=== PATIENT | male | born 1980 | race Caucasian/White ===

== ENCOUNTER 2024-12-13 08:45 | Emergency (ER) | payer SELFPAY ==
[2024-12-13 08:45] VITALS: BP 133/96; PULSE 93; RESP 14; TEMP 36.1; O2SAT 98; BMI 24.5
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
--- NOTE | 2024-12-13 09:02 | ED.RN ---
Per Dr Main, no sitter is needed.
--- NOTE | 2024-12-13 09:16 | ED.RN ---
attempted to give urine sample. unable to void at this time. given water. pt aware that we need urine before able to move forward.
--- OUTSIDE RECORDS SUMMARY | 2024-12-13 09:19 | XMS RPT_ITS | CCD ---
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 Name Role Phone MILLIE POP, DR DAVIES Primary Care Physician [phone] Keke Pinto MD Primary Care Provider Shea Vogt Primary Care Unavailable PROVIDER, UNKNOWN Referring Unavailable Beena Garcia Attending Todd PINTO MD, DR DAVIES Primary Care Unavailabl e CHERELLE POP, VITALY Miller Attending Unavail able MILLIE POP, DR DAVIES Primary Care Unavailabl e ANNA POP, DR DEEPTI Henriquez Attending Pascual HARRIS MD, DIEGO Attending Todd PINTO MD, DR DAVIES Primary Care Unavailabl e Allergies Allergy Classification Reported Allergen(s) Allergy Type Date of Onset Reaction(s) Facility (8 sources) cyclobenzaprine; Translations: [cyclobenzaprine] Drug Allergy 03-30-2013 [facility] (6 sources) Methylphenidate; Translations: [methylphenidate] Drug Allergy [facility] (8 sources) traMADol; Translations: [tramadol] Drug Allergy 03-30-2013 [facility] Medications Current Medications Medication Drug Class(es) Dates Sig (Normalized) Sig (Original) Azithromycin 5 Day Dose Pack 250 mg oral tablet (1 source) Start: 01-27-2022 End: 02-01-2022 take 1 tablet by mouth once daily Azithromycin 5 Day Dose Pack 250 mg oral tablet 1 dose, Oral, Daily, X 5 day(s), # 6 tab(s), 0 Refill(s), 02/01/22 4:54:00 EDT, Bronchitis Viral syndrome, 77.3 Start Date: 01/27/22 Stop Date: 02/01/22 Status: Ordered cephalexin 500 mg oral capsule (4 sources) Cephalosporin Antibacterial Start: 02-10-2022 End: 02-15-2022 take 1 capsule by mouth three times daily cephALEXin (KEFLEX) 500 MG capsule Take 1 capsule by mouth 3 times daily for 5 days 15 capsule 0 02/10/2022 02/15/2022 Active predniSONE 20 mg oral tablet (1 source) Start: 01-27-2022 End: 02-01-2022 predniSONE 20 mg oral tablet Dose : 40 mg = 2 tab(s), Oral, Daily, X 5 day(s), # 10 tab(s), 0 Refill(s), 02/01/22 4:54:00 EDT, Bronchitis Viral syndrome Start Date: 01/27/22 Stop Date: 02/01/22 Status: Ordered 60 actuat testosterone 20.25 mg/actuat topical gel (2 sources) Androgen Start: 07-31-2021 Testosterone (ANDROGEL) 20.25 MG/ACT (1.62%) GEL gel Indications: Hypogonadism in male Place 2 actuation onto the skin daily for 30 days. 1 each 0 07/31/2021 Active Completed/Discontinued Medications Medication Drug Class(es) Dates Sig (Normalized) Sig (Original) bacitracin 0.5 unt/mg topical ointment (3 sources) Start: 02-10-2022 End: 02-10-2022 bacitracin ointment Start: 10-19-2021 End: 10-26-2021 bacitracin topical ointment Apply 1 appl, Topical, QID, X 7 day(s), # 15 gram(s), 0 Refill(s), Ointment, 77.3 Start Date: 10/19/21 Stop Date: 10/26/21 Status: Ordered EPINEPHrine 0.01 mg/ml / lidocaine hydrochloride 10 mg/ml injectable solution (2 sources) Antiarrhythmic, alpha-Adrenergic Agonist, beta-Adrenergic Agonist, Catecholamine, Amide Local Anesthetic Start: 02-10-2022 End: 02-10-2022 lidocaine-EPINEPHrine 1 %-[id number] injection 20 mL Problems Problem Classification Problem Date Documented Da te Episodic/Chronic Allergic reactions (4 sources) Allergy status to narcotic agent status; Translations: [Allergy status to other drugs, medicaments and biological substances status] Onset: 02-10-2022 Episodic Asthma (2 sources) Unspecified asthma, uncomplicated; Translations: [Unspecified asthma, uncomplicated] Onset: 02-10-2022 Chronic Chronic obstructive pulmonary disease and bronchiectasis (1 source) Bronchitis; Translations: [Bronchitis, not specified as acute or chronic] Onset: 01-27-2022 Episodic Coma; stupor; and brain damage (3 sources) Daytime somnolence; Translations: [Somnolence] Onset: 07-27-2021 07-27-2021 Episodic E Codes: Fall (2 sources) Other fall on same level, initial encounter; Translations: [Other fall on same level, initial encounter] Onset: 02-10-2022 Episodic Fluid and electrolyte disorders (1 source) Dehydration; Translations: [Dehydration] Onset: 01-27-2022 Episodic Malaise and fatigue (2 sources) Fatigue; Translations: [Chronic fatigue, unspecified] Onset: 07-27-2021 07-27-2021 Chronic Open wounds of head; neck; and trunk (4 sources) Facial laceration ; Translations: [Laceration without foreign body of other part of head, initial encounter] Onset: 02-10-2022 Episodic Other injuries and conditions due to external causes (3 sources) Unspecified injury of head, initial encounter; Translations: [Unspecified injury of head, initial encounter] Onset: 02-10-2022 Episodic Other injuries and conditions due to external causes (1 source) Injury of ankle; Translations: [Unspecified injury of unspecified ankle, initial encounter] Onset: 03-28-2023 Episodic Other injuries and conditions due to external causes (1 source) Injury of head; Translations: [Unspecified injury of head, initial encounter] Onset: 10-13-2024 Episodic Other injuries and conditions due to external causes (1 source) Closed injury of head 10-13-2024 Episodic Other non-traumatic joint disorders (1 source) Pain in unspecified knee; Translations: [Pain of joint of knee] Onset: 07-18-2021 Episodic Substance-related disorders (2 sources) Nicotine dependence, cigarettes, uncomplicated; Translations: [Nicotine dependence, cigarettes, uncomplicated] Onset: 02-10-2022 Chronic Viral infection (1 source) Viral disease; Translations: [Other viral agents as the cause of diseases classified elsewhere] Onset: 01-27-2022 Episodic Results Test Name Value Interpretation Reference Range Facility CT HEAD OR BRAIN W/O CONTRAS Ton 10-13-2024 CT HEAD OR BRAIN W/O CONTRAST ORIGINAL EXAMINATION: CT OF THE HEAD WITHOUT CONTRAST 10/13/2024 7:40 pm TECHNIQUE: CT of the head was performed without the administration of intravenous contrast. Automated exposure control, iterative reconstruction, and/or weight based adjustment of the mA/kV was utilized to reduce the radiation dose to as low as reasonably achievable. COMPARISON: None. HISTORY: ORDERING SYSTEM PROVIDED HISTORY: Reason for Exam: Head trauma, minor, normal mental status FINDINGS: BRAIN/VENTRICLES: There are calcified plaques of internal carotid cavernous segments and vertebral arteries. There are small calcified plaques of the proximal left middle cerebral artery. There is no acute intracranial hemorrhage, mass effect or midline shift. No abnormal extra-axial fluid collection. The newsome-white differentiation is maintained without evidence of an acute infarct. There is no evidence of hydrocephalus. ORBITS: The visualized portion of the orbits demonstrate no acute abnormality. SINUSES: The visualized paranasal sinuses and mastoid air cells demonstrate no acute abnormality. SOFT TISSUES/SKULL: No acute abnormality of the visualized skull or soft tissues. IMPRESSION: No acute intracranial abnormality. There is no evidence of mass, hemorrhage, acute infarct, or calvarial fracture. Interpreted by: Timi Roper Preliminary Report By: Timi Roper Electronically signed By Timi Roper Dictated Date: 10/13/2024 7:58:35 PM Prelim Date: 10/13/2024 8:05:08 PM Sign Date: 10/13/2024 8:05:08 PM Ordering Provider: DIEGO HARRIS Normal [facility] Yana 10-28-2023 Fentanyl (u) Positive Abnormal Negative [facility] ([place]) Comment on above: Result Comment: Test ing has been performed FOR MEDICAL PURPOSES ONLY. Performed By: #### U VIC BALDWIN #### [facility] [address] [place] [id number] #### UDRUG #### [address] [address] Aiyana 10-28-2023 Oxycodone (u) Negative Normal Negative [facility] ([place]) Comment on above: Result Comment: Test ing has been performed FOR MEDICAL PURPOSES ONLY. Performed By: #### U VIC BALDWIN ####[address] [address]#### UDRUG ####[address] [address] .Auto Diffon 10-27-2023 Basophil, Absolute 0.0 10 3/mcL Normal 0.0-0.2 [facility] ([place]) Comment on above: Performed By: #### B EDWIN DELGADO, CBC, ADIFF, GFR, ANEU #### [address] [address] Basophils/100 WBC (Bld) 0.5 % Normal 0.0-2.5 [facility] ([place]) Comment on above: Performed By: #### B EDWIN DELGADO, CBC, ADIFF, GFR, ANEU #### [address] [address] Eosinophil, Absolute 0.3 10 3/mcL Normal 0.0-0.4 [facility] ([place]) Comment on above: Performed By: #### B EDWIN DELGADO, CBC, ADIFF, GFR, ANEU #### [address] [address] Eosinophils/100 WBC (Bld) 3.9 % Normal 0.0-7.0 [facility] ([place]) Comment on above: Performed By: #### B EDWIN DELGADO, CBC, ADIFF, GFR, ANEU #### [address] [address] Lymphocyte, Absolute 1.8 10 3/mcL Normal 0.8-3.9 [facility] ([place]) Comment on above: Performed By: #### B EDWIN DELGADO, CBC, ADIFF, GFR, ANEU #### [address] [address] Lymphocytes/100 WBC (Bld) 23.0 % Normal 10.0-50.0 [facility] ([place]) Comment on above: Performed By: #### B EDWIN DELGADO, CBC, ADIFF, GFR, ANEU #### [address] [address] Monocyte, Absolute 0.7 10 3/mcL Normal 0.2-1.0 [facility] ([place]) Comment on above: Performed By: #### B EDWIN DELGADO, CBC, ADIFF, GFR, ANEU #### [address] [address] Monocytes/100 WBC (Bld) 9.7 % Normal 1.7-13.0 [facility] ([place]) Comment on above: Performed By: #### B EDWIN DELGADO, CBC, ADIFF, GFR, ANEU #### [address] [address] Neutrophils/100 WBC (Bld) 62.9 % Normal 37.0-80.0 [facility] ([place]) Comment on above: Performed By: #### B EDWIN DELGADO, CBC, ADIFF, GFR, ANEU #### [address] [address] .GFRon 10-27-2023 GFR 93 ml/min/1.73sqm Normal [facility] ([place]) Comment on above: Result Comment: GFR Population mean for , Non- Americans Ages 20-29 = 116 mL/min/1.73 sq.m. Ages 30-39 = 107 mL/min/1.73 sq.m. Ages 40-49 = 99 mL/min/1.73 sq.m. Ages 50-59 = 93 mL/min/1.73 sq.m. Ages 60-69 = 85 mL/min/1.73 sq.m. Ages 70+ = 75 mL/min/1.73 sq.m. Chronic Kidney Disease: Less than 60 mL/min/1.73 square meters End Stage Renal Disease: Less than 15 mL/min/1.73 square meters Performed By: #### B EDWIN DELGADO, CBC, ADIFF, GFR, ANEU #### [address] [address] GFR Non- 77 ml/min/1.73sqm Normal [facility] ([place]) Comment on above: Result Comment: GFR Population mean for , Non- Americans Ages 20-29 = 116 mL/min/1.73 sq.m. Ages 30-39 = 107 mL/min/1.73 sq.m. Ages 40-49 = 99 mL/min/1.73 sq.m. Ages 50-59 = 93 mL/min/1.73 sq.m. Ages 60-69 = 85 mL/min/1.73 sq.m. Ages 70+ = 75 mL/min/1.73 sq.m. Chronic Kidney Disease: Less than 60 mL/min/1.73 square meters End Stage Renal Disease: Less than 15 mL/min/1.73 square meters Performed By: #### B EDWIN DELGADO, CBC, ADIFF, GFR, ANEU #### [place] [address] .MDWon 10-27-2023 Monocyte Distribution Width 15.66 Normal 0.00-20.00 [facility]) Comment on above: Result Comment: For ED adult patients suspected of sepsis, MDW<=20.0 does not rule out sepsis or risk of sepsis Performed By: #### B EDWIN DELGADO, CBC, ADIFF, GFR, ANEU #### [place] [address] .NEUABSon 10-27-2023 Neutrophil, Absolute 4.9 10 3/mcL Normal 2.9-6.2 [facility] ([place]) Comment on above: Performed By: #### B EDWIN DELGADO, CBC, ADIFF, GFR, ANEU #### [place] [address] Abena 10-27-2023 Ethanol Level <3 Normal 0-3 [facility] ([place]) Comment on above: Performed By: #### A LC #### [place] [address] BMPon 10-27-2023 BUN/Creatinine Ratio 15 ratio Normal 7-27 [facility] ([place]) Comment on above: Performed By: #### B EDWIN DELGADO, CBC, ADIFF, GFR, ANEU #### [address] [address] Calcium [Mass/Vol] 9.0 mg/dL Normal 8.4-10.2 [facility] ([place]) Comment on above: Performed By: #### B EDWIN DELGADO, CBC, ADIFF, GFR, ANEU #### [address] [address] Chloride [Moles/Vol] 104 mmol/L Normal 98-107 [facility] ([place]) Comment on above: Performed By: #### B EDWIN DELGADO, CBC, ADIFF, GFR, ANEU #### [place] [address] CO2 [Moles/Vol] 35 mmol/L High 22-29 [facility] ([place]) Comment on above: Performed By: #### B EDWIN DELGADO, CBC, ADIFF, GFR, ANEU #### [address] [address] Creatinine [Mass/Vol] 1.06 mg/dL Normal 0.70-1.30 [facility] ([place]) Comment on above: Performed By: #### B EDWIN DELGADO, CBC, ADIFF, GFR, ANEU #### [address] [address] Electrolyte Balance 4.0 mEq/L Normal 4.0-15.0 [facility] ([place]) Comment on above: Performed By: #### B EDWIN DELGADO, CBC, ADIFF, GFR, ANEU #### [address] [address] Glucose [Mass/Vol] 132 mg/dL High 70-105 [facility] ([place]) Comment on above: Performed By: #### B EDWIN DELGADO, CBC, ADIFF, GFR, ANEU #### [address] [address] Potassium [Moles/Vol] 4.0 mmol/L Normal 3.5-5.1 [facility] ([place]) Comment on above: Performed By: #### B EDWIN DELGADO, CBC, ADIFF, GFR, ANEU #### [address] [address] Sodium [Moles/Vol] 143 mmol/L Normal 136-145 [facility] ([place]) Comment on above: Performed By: #### B EDWIN DELGADO, CBC, ADIFF, GFR, ANEU #### [address] [address] Urea nitrogen [Mass/Vol] 16 mg/dL Normal 7-18 [facility] ([place]) Comment on above: Performed By: #### B EDWIN DELGADO, CBC, ADIFF, GFR, ANEU #### [place] [address] CBCon 10-27-2023 Erythrocyte distribution width (RBC) [Ratio] 13.7 % Normal 11.5-14.5 [facility] ([place]) Comment on above: Performed By: #### B EDWIN DELGADO, CBC, ADIFF, GFR, ANEU #### [place] [address] Hematocrit (Bld) [Volume fraction] 39.5 % Low 42.0-52.0 [facility] ([place]) Comment on above: Performed By: #### B EDWIN DELGADO, CBC, ADIFF, GFR, ANEU #### [address] [address] Hgb 13.8 G/dL Low 14.0-18.0 [facility] ([place]) Comment on above: Performed By: #### B EDWIN DELGADO, CBC, ADIFF, GFR, ANEU #### [address] [address] MCH (RBC) [Entitic mass] 32.3 pg High 27.0-31.2 [facility] ([place]) Comment on above: Performed By: #### B EDWIN DELGADO, CBC, ADIFF, GFR, ANEU #### [place] [id number] MCHC 34.8 G/dL Normal 31.8-35.4 [facility] ([place]) Comment on above: Performed By: #### B EDWIN DELGADO, CBC, ADIFF, GFR, ANEU #### [address] [address] MCV (RBC) [Entitic vol] 92.8 fL Normal 80.0-94.0 [facility] ([place]) Comment on above: Performed By: #### B EDWIN DELGADO, CBC, ADIFF, GFR, ANEU #### [address] [address] Platelet 201 10 3/mcL Normal 130-400 [facility] ([place]) Comment on above: Performed By: #### B EDWIN DELGADO, CBC, ADIFF, GFR, ANEU #### [address] [address] Platelet mean volume (Bld) [Entitic vol] 6.8 fL Low 7.4-10.4 [facility] ([place]) Comment on above: Performed By: #### B EDWIN DELGADO, CBC, ADIFF, GFR, ANEU #### [place] [id number] RBC 4.26 10 6/mcL Normal 4.04-6.13 [facility] ([place]) Comment on above: Performed By: #### B EDWIN DELGADO, CBC, ADIFF, GFR, ANEU #### [address] [address] WBC 7.7 10 3/mcL Normal 4.6-10.8 [facility] ([place]) Comment on above: Performed By: #### B EDWIN DELGADO, CBC, ADIFF, GFR, ANEU #### [address] [address] LABORATORYOrdered By: Aurea Morocho on 10-27-2023 Amphetamines Screen Ql (U) Negative *NA* (10/27/23 10:30 PM) Invalid Interpretation Code Negative AO ADM SS Barbiturates Screen Ql (U) Negative *NA* (10/27/23 10:30 PM) Invalid Interpretation Code Negative AO ADM SS Benzodiazepines Ql (U) Negative *NA* (10/27/23 10:30 PM) Invalid Interpretation Code Negative AO ADM SS Benzoylecgonine Screen Ql (U) Negative *NA* (10/27/23 10:30 PM) Invalid Interpretation Code Negative AO ADM SS Cannabinoids Screen Ql (U) Negative *NA* (10/27/23 10:30 PM) Invalid Interpretation Code Negative AO ADM SS Methadone Screen Ql (U) Negative *NA* (10/27/23 10:30 PM) Invalid Interpretation Code Negative AO ADM SS Opiates Screen Ql (U) Negative *NA* (10/27/23 10:30 PM) Invalid Interpretation Code Negative AO ADM SS Phencyclidine Ql (U) Negative *NA* (10/27/23 10:30 PM) Invalid Interpretation Code Negative AO ADM SS Urine Drugs screened: See Below 2 (10/27/23 10:30 PM) Normal AO Chemistry S Comment on above: Interpretive Data: T his drug screen is a presumptive screening only. No confirmation will be performed unless requested. Drugs screened include: Threshold Amphetamines/Methamphetamines 1,000 ng/mL Barbiturates 200 ng/mL Benzodiazepine metabolites 200 ng/mL Cannabinoids (THC metabolites) 50 ng/mL Cocaine 300 ng/mL Opiates 300 ng/mL Methadone 300 ng/mL Phencyclidine (PCP) 25 ng/mL Testing has been performed FOR MEDICAL PURPOSES ONLY. LABORATORYOrdered By: SYSTEM SYSTEM on 10-27-2023 Ethanol [Mass/Vol] mg/dL Normal 0 - 3 mg/dL AO AD M SS Basophil, Absolute 0.0 103/mcL Normal 0.0 - 0.2 10^3/mcL AO Workflow SS Basophils/100 WBC (Bld) 0.5 % Normal 0.0 - 2.5 % AO Workflow SS Calcium [Mass/Vol] 9.0 mg/dL Normal 8.4 - 10. 2 mg/dL AO ADM SS Chloride [Moles/Vol] 104 mmol/L Normal 98 - 10 7 mmol/L AO ADM SS CO2 [Moles/Vol] 35 mmol/L High 22 - 29 mmol/L AO ADM SS Creatinine [Mass/Vol] 1.06 mg/dL Normal 0.70 - 1.30 mg/dL AO ADM SS Electrolyte Balance 4.0 mEq/L Normal 4.0 - 15 .0 mEq/L AO ADM SS Eosinophil, Absolute 0.3 103/mcL Normal 0.0 - 0 .4 10^3/mcL AO Workflow SS Eosinophils/100 WBC (Bld) 3.9 % Normal 0.0 - 7.0 % AO Workflow SS Erythrocyte distribution width (RBC) [Ratio] 13.7 % Normal 11.5 - 14.5 % AO Workflow SS GFR/1.73 sq M.predicted among blacks MDRD (S/P/Bld) [Vol rate/Area] 93 ml/min/1.73sqm Invalid Interpretation Code AO Chemistry S Comment on above: Interpretive Data: GFR Population mean for , Non- Americans Ages 20-29 = 116 mL/min/1.73 sq.m. Ages 30-39 = 107 mL/min/1.73 sq.m. Ages 40-49 = 99 mL/min/1.73 sq.m. Ages 50-59 = 93 mL/min/1.73 sq.m. Ages 60-69 = 85 mL/min/1.73 sq.m. Ages 70+ = 75 mL/min/1.73 sq.m. Chronic Kidney Disease: Less than 60 mL/min/1.73 square meters End Stage Renal Disease: Less than 15 mL/min/1.73 square meters GFR/1.73 sq M.predicted among non-blacks MDRD (S/P/Bld) [Vol rate/Area] 77 ml/min/1.73sqm Invalid Interpretation Code AO Chemistry S Comment on above: Interpretive Data: GFR Population mean for , Non- Americans Ages 20-29 = 116 mL/min/1.73 sq.m. Ages 30-39 = 107 mL/min/1.73 sq.m. Ages 40-49 = 99 mL/min/1.73 sq.m. Ages 50-59 = 93 mL/min/1.73 sq.m. Ages 60-69 = 85 mL/min/1.73 sq.m. Ages 70+ = 75 mL/min/1.73 sq.m. Chronic Kidney Disease: Less than 60 mL/min/1.73 square meters End Stage Renal Disease: Less than 15 mL/min/1.73 square meters Glucose [Mass/Vol] 132 mg/dL High 70 - 105 mg/dL AO ADM SS Hematocrit (Bld) [Volume fraction] 39.5 % Low 42.0 - 52.0 % AO Workflow SS Hemoglobin (Bld) [Mass/Vol] 13.8 G/dL Low 14.0 - 18.0 G/dL AO Workflow SS Lymphocyte, Absolute 1.8 103/mcL Normal 0.8 - 3 .9 10^3/mcL AO Workflow SS Lymphocytes/100 WBC (Bld) 23.0 % Normal 10.0 - 50.0 % AO Workflow SS MCH (RBC) [Entitic mass] 32.3 pg High 27.0 - 31.2 pg AO Workflow SS MCHC 34.8 G/dL Normal 31.8 - 35.4 G/dL AO Workflow SS MCV (RBC) [Entitic vol] 92.8 fL Normal 80.0 - 94.0 fL AO Workflow SS Monocyte distribution width Auto (Bld) [Entitic vol] 15.66 1 Normal 0.00 - 20.00 AO Workflow SS Comment on above: Result Comment: For ED adult patients suspected of sepsis, MDW<=20.0 does not rule out sepsis or risk of sepsis Monocyte, Absolute 0.7 103/mcL Normal 0.2 - 1.0 10^3/mcL AO Workflow SS Monocytes/100 WBC (Bld) 9.7 % Normal 1.7 - 13.0 % AO Workflow SS Neutrophil, Absolute 4.9 103/mcL Normal 2.9 - 6 .2 10^3/mcL AO Workflow SS Neutrophils/100 WBC (Bld) 62.9 % Normal 37.0 - 80.0 % AO Workflow SS Platelet mean volume (Bld) [Entitic vol] 6.8 fL Low 7.4 - 10.4 fL AO Workflow SS Platelets (Bld) [#/Vol] 201 103/mcL Normal 130 - 400 10^3/mcL AO Workflow SS Potassium [Moles/Vol] 4.0 mmol/L Normal 3.5 - 5.1 mmol/L AO ADM SS RBC (Bld) [#/Vol] 4.26 106/mcL Normal 4.04 - 6.1 3 10^6/mcL AO Workflow SS Sodium [Moles/Vol] 143 mmol/L Normal 136 - 145 mmol/L AO ADM SS Urea nitrogen [Mass/Vol] 16 mg/dL Normal 7 - 18 mg/dL AO ADM SS Urea nitrogen/Creatinine [Mass ratio] 15 ratio Normal 7 - 27 ratio AO ADM SS WBC (Bld) [#/Vol] 7.7 103/mcL Normal 4.6 - 10.8 10^3/mcL AO Workflow SS UDRUGon 10-27-2023 Amphetamine (u) Negative Normal Negative [facility] ([place]) Comment on above: Performed By: #### U FENTS, UOXYS #### [facility] [address] [place] [address] #### UDRUG #### [address] [address] Barbiturate (u) Negative Normal Negative [facility] ([place]) Comment on above: Performed By: #### U FENTS, UOXYS #### [facility] [address] [place] [address] #### UDRUG #### [address] [address] Benzodiazepine (u) Negative Normal Negative [facility] ([place]) Comment on above: Performed By: #### U FENTS, UOXYS #### [address] [address] #### UDRUG #### [address] [address] Cannabinoid (u) Negative Normal Negative [facility] ([place]) Comment on above: Performed By: #### U FENTS, UOXYS #### [address] [address] #### UDRUG #### [address] [address] Cocaine Ql (U) Negative Normal Negative [facility] ([place]) Comment on above: Performed By: #### U FENTS, UOXYS #### [facility] [address] [place] [address] #### UDRUG #### [address] [address] Methadone Ql (U) Negative Normal Negative [facility] ([place]) Comment on above: Performed By: #### U FENTS, UOXYS #### [address] [address] #### UDRUG #### [address] [address] Opiate (u) Negative Normal Negative [facility] ([place]) Comment on above: Performed By: #### U FENTS, UOXYS #### [place] [id number] [address] [place] [address] #### UDRUG #### [address] [address] PCP (u) Negative Normal Negative [facility] ([place]) Comment on above: Performed By: #### U FENTS, UOXYS #### [address] [address] #### UDRUG #### [address] [address] Urine Drugs screened: See Below Normal [facility] ([place]) Comment on above: Result Comment: This drug screen is a presumptive screening only. No confirmation will be performed unless requested. Drugs screened include: Threshold Amphetamines/Methamphetamines 1,000 ng/mL Barbiturates 200 ng/mL Benzodiazepine metabolites 200 ng/mL Cannabinoids (THC metabolites) 50 ng/mL Cocaine 300 ng/mL Opiates 300 ng/mL Methadone 300 ng/mL Phencyclidine (PCP) 25 ng/mL Testing has been performed FOR MEDICAL PURPOSES ONLY. Performed By: #### U FENTS, UOXYS #### [address] [address] #### UDRUG #### [address] [address] XR ANKLE MINIMUM 3 VIEWS [facility] 03-28-2023 XR ANKLE MINIMUM 3 VIEWS RIGHT ORIGINAL EXAMINATION: THREE XRAY VIEWS OF THE RIGHT ANKLE03/28/2023 11:25 am COMPARISON: None HISTORY: ORDERING SYSTEM PROVIDED HISTORY: Reason for Exam: pain FINDINGS: There is osseous irregularity through the anterior talar neck with osseous spurring and possible sclerosis. Additionally, the AP and oblique views demonstrate subchondral irregularity and concavity along the medial aspect of the talar articular surface. Otherwise, no fracture or dislocation. There is calcaneal spurring. No evidence significant joint effusion. Remaining articulations are intact. No aggressive osseous lesion. No radiographic evidence of soft tissue swelling. IMPRESSION: Anterior talar neck irregularity, which is uncertain in etiology. Findings could reflect remote trauma. Additionally, medial talar articular surface irregularity, could reflect osteochondritis desiccans. Given constellation of findings, MRI may be warranted. Interpreted by: Mirza Bowen DO Preliminary Report By: Mirza Bowen DO Electronically signed By Mirza Bowen DO Dictated Date: 03/28/2023 11:29:48 AM Prelim Date: 03/28/2023 11:37:19 AM Sign Date: 03/28/2023 11:37:19 AM Ordering Provider: DEEPTI CASTILLO [facility] ([place]) CT Head or Brain w/o Contras ton 02-10-2022 CT Head or Brain w/o Contrast Patient Name: OSMAN OMALLEY Computed Tomography ACCESSION EXAM DATE/TIME PROCEDURE ORDERING PROVIDER [id number] 02/10/2022 05:[address] Head or Brain w/o [id number] -KIBE, BEENA Contrast CPT code 56624 Reason For Exam (CT Head or Brain w/o Contrast) facial trauma Report Examination: CT Head Clinical Information: Pain Comparison: None Findings: Serial axial [address] images were obtained through the skull without intravenous contrast. Coronal, sagittal, and axial images were reconstructed. The ventricular system and cortical sulci are within normal limits. Champion white differentiation is well preserved. There is no evidence of gross mass, hemorrhage or edema. No areas of mass-effect or infarct are seen. Sinuses appear well pneumatized. Impression: Unremarkable noncontrast CT scan of the head. No evidence of acute intracranial process. EXAMINATION: CT Maxillofacial w/o Contrast INDICATION: Pain COMPARISON: None available. TECHNIQUE: 0.5 mm axial images of the maxillofacial structures were obtained without contrast. Coronal and sagittal reformatted images were reviewed. FINDINGS: Scalp laceration/hematoma containing a 5 mm radiopaque foreign body, just to the right of midline. The frontal sinuses and frontal recesses are well-aerated. The ethmoid air cells are well-aerated. The medial orbital napier are intact. The Computed Tomography Report ethmoid roofs are symmetric. The sphenoid sinuses and sphenoethmoidal recesses are well-aerated. The maxillary antra are well aerated. The ostiomeatal units are well-aerated. The nasal septum is in the midline. The nasal cavity is well-aerated. Visualized portions of the brain and orbits are unremarkable. IMPRESSION: 1. Scalp laceration/hematoma containing a 5 mm radiopaque foreign body, just to the right of midline. 2. No osseous injury. Report Dictated on Final Dictating Physician: MD MUNOZ JASON Signed Date and Time: 02/10/2022 6:08 am Signed by: MD MUNOZ JASON Transcribed Date and Time: 02/10/2022 6:09 Normal [facility] CT Maxillofacial w/o Contras ton 02-10-2022 CT Maxillofacial w/o Contrast Patient Name: OSMAN OMALLEY Computed Tomography ACCESSION EXAM DATE/TIME PROCEDURE ORDERING PROVIDER [id number] 02/10/2022 05:[address] Maxillofacial w/o [id number] -KIBE, BEENA Contrast CPT code 30157 Reason For Exam (CT Maxillofacial w/o Contrast) facial trauma Report Examination: CT Head Clinical Information: Pain Comparison: None Findings: Serial axial [address] images were obtained through the skull without intravenous contrast. Coronal, sagittal, and axial images were reconstructed. The ventricular system and cortical sulci are within normal limits. Champion white differentiation is well preserved. There is no evidence of gross mass, hemorrhage or edema. No areas of mass-effect or infarct are seen. Sinuses appear well pneumatized. Impression: Unremarkable noncontrast CT scan of the head. No evidence of acute intracranial process. EXAMINATION: CT Maxillofacial w/o Contrast INDICATION: Pain COMPARISON: None available. TECHNIQUE: 0.5 mm axial images of the maxillofacial structures were obtained without contrast. Coronal and sagittal reformatted images were reviewed. FINDINGS: Scalp laceration/hematoma containing a 5 mm radiopaque foreign body, just to the right of midline. The frontal sinuses and frontal recesses are well-aerated. The ethmoid air cells are well-aerated. The medial orbital napier are intact. The Computed Tomography Report ethmoid roofs are symmetric. The sphenoid sinuses and sphenoethmoidal recesses are well-aerated. The maxillary antra are well aerated. The ostiomeatal units are well-aerated. The nasal septum is in the midline. The nasal cavity is well-aerated. Visualized portions of the brain and orbits are unremarkable. IMPRESSION: 1. Scalp laceration/hematoma containing a 5 mm radiopaque foreign body, just to the right of midline. 2. No osseous injury. Report Dictated on Final Dictating Physician: MD MUNOZ JASON Signed Date and Time: 02/10/2022 6:08 am Signed by: MD MUNOZ JASON Transcribed Date and Time: 02/10/2022 6:09 Normal [facility] ED Provider Noteon ED Provider Note [facility] ED EMERGENCY DEPARTMENT ENCOUNTER Pt Name: Osman Omalley Birthdate 1980 Date of evaluation: 02/10/2022 Provider: Beena Brown MD CHIEF COMPLAINT Chief Complaint Patient presents with ? Fall ? Laceration Pt tripped and fell hitting head on the toilet, no LOC HISTORY OF PRESENT ILLNESS (Location/Symptom, Timing/Onset, Context/Setting, Quality, Duration, Modifying Factors, Severity) Note limiting factors. I wore a surgical mask for the entirety of this encounter. HPI Osman Omalley is a 41 y.o. male with a past medical history significant for chronic fatigue syndrome who presents to the emergency department for evaluation for a fall with a rastafarian to the forehead. Patient states got lightheaded when going to the bathroom. He states that he tried to catch himself on his sink but fell crushing of the porcelain part of the toilet. He states he immediately noticed there were pieces of porcelain on his forehead. He states that he tried to remove them but could not get out of them out hence coming to the emergency department for evaluation. He denies loss of consciousness. He denies lightheadedness at the time of my evaluation. Patient also denies any headache, vision changes or focal neurologic deficits. Patient denies any other trauma. Nursing Notes were reviewed. REVIEW OF SYSTEMS (2+ for level 4; 10+ for level 5) Review of Systems Constitutional: Negative for activity change, appetite change, chills, diaphoresis and fever. HENT: Negative for congestion, facial swelling, sinus pressure, sinus pain, sneezing and trouble swallowing. Eyes: Negative for pain, discharge and visual disturbance. Respiratory: Negative for cough, chest tightness and shortness of breath. Cardiovascular: Negative for chest pain and palpitations. Gastrointestinal: Negative for abdominal pain, nausea and vomiting. Genitourinary: Negative for decreased urine volume, dysuria, hematuria and urgency. Musculoskeletal: Negative for back pain, neck pain and neck stiffness. Skin: Positive for wound (Forehead). Negative for color change, pallor and rash. Neurological: Positive for light-headedness. Negative for dizziness and numbness. Psychiatric/Behavio ral: Negative for confusion and hallucinations. The patient is not nervous/anxious. PAST MEDICAL HISTORY Past Medical History: Diagnosis Date ? Asthma SURGICAL HISTORY Past Surgical History: Procedure Laterality Date ? EYE SURGERY Right 1986 ? EYE SURGERY Right 1988 ? EYE SURGERY Right 1989 ? ORTHOPEDIC SURGERY finger amputation CURRENT MEDICATIONS Previous Medications TESTOSTERONE (ANDROGEL) 20.25 MG/ACT (1.62%) GEL GEL Place 2 actuation onto the skin daily for 30 days. ALLERGIES Cyclobenzaprine and Tramadol FAMILY HISTORY Family History Problem Relation Age of Onset ? Cancer Mother ? Cancer Maternal Aunt ? Cancer Maternal Grandmother SOCIAL HISTORY Social History Socioeconomic History ? Marital status: Single Spouse name: None ? Number of children: None ? Years of education: None ? Highest education level: None Tobacco Use ? Smoking status: Every Day Packs/day: 1.00 Years: 23.00 Pack years: 23.00 Types: Cigarettes Start date: 11/07/1997 ? Smokeless tobacco: Never ? Tobacco comments: unable to assess Vaping Use ? Vaping Use: Never used Substance and Sexual Activity ? Alcohol use: Yes Comment: hardly at all ? Drug use: Not Currently Comment: unable to assess SCREENINGS [place] Coma Scale Eye Opening: Spontaneous Best Verbal Response: Oriented Best Motor Response: Obeys commands Laureen Coma Scale Score: 15 PHYSICAL EXAM (up to 7 for level 4, 8 or more for level 5) ED Triage Vitals BP Temp Temp Source Heart Rate Resp SpO2 Height Weight 02/10/2244102/10/2244102/10/2244102/10/2244102/10/2244102/10/22441 -- 02/10/22442 (!) 136/91 98.3 ?F (36.8 ?C) Temporal 73 16 99 % 165 lb (74.8 kg) Physical Exam Vitals and nursing note reviewed. Constitutional: General: He is not in acute distress. Appearance: He is not ill-appearing or toxic-appearing. HENT: Head: Normocephalic. Comments: Lacerations to forehead with porcelain pieces removed at bedside. Right Ear: External ear normal. Left Ear: External ear normal. Nose: No congestion or rhinorrhea. Mouth/Throat: Mouth: Mucous membranes are moist. Pharynx: No oropharyngeal exudate. Eyes: General: No scleral icterus. Right eye: No discharge. Left eye: No discharge. Conjunctiva/sclera: Conjunctivae normal. Cardiovascular: Rate and Rhythm: Normal rate. Pulses: Normal pulses. Heart sounds: No murmur heard. No gallop. Pulmonary: Effort: Pulmonary effort is normal. No respiratory distress. Breath sounds: Normal breath sounds. No stridor. No wheezing or rhonchi. Abdominal: General: Abdomen is flat. There is no distension. Palpations: Abdome (more content not included)... Normal [facility] No Panel Informationon 02-10 Beena Brown MD 02/10/2022 7:56 AM Lac Repair Date/Time: 02/10/2022 7:51 AM Performed by: Beena Brown MD Authorized by: Beena Brown MD Consent: Consent obtained: Verbal Consent given by: Patient Risks, benefits, and alternatives were discussed: yes Risks discussed: Infection, poor cosmetic result, pain, retained foreign body, poor wound healing and need for additional repair [place] protocol: Patient identity confirmed: Verbally with patient Anesthesia: Anesthesia method: Local infiltration Local anesthetic: Lidocaine 1% WITH epi Laceration details: Location: Face Face location: Forehead Length (cm): 3.5 Depth (mm): 2 Pre-procedure details: Preparation: Patient was prepped and draped in usual sterile fashion Exploration: Limited defect created (wound extended): no Hemostasis achieved with: Direct pressure Imaging obtained comment: CT head Imaging outcome: foreign body noted Wound exploration: wound explored through full range of motion Wound extent: areolar tissue violated Wound extent: no fascia violation noted Contaminated: yes Treatment: Area cleansed with: Saline Amount of cleaning: Extensive Irrigation solution: Sterile saline Irrigation volume: 250 Irrigation method: Pressure wash Visualized foreign bodies/material removed: yes Debridement: Minimal Undermining: Minimal Scar revision: no Skin repair: Repair method: Sutures Suture size: 6-0 Suture material: Chromic gut Suture technique: Simple interrupted Number of sutures: 14 Approximation: Approximation: Close Repair type: Repair type: Simple Post-procedure details: Dressing: Antibiotic ointment Procedure completion: Tolerated well, no immediate complications [facility] Work Phone: [facility] Work Phone: [id number] Computed Tomography ACCESSION EXAM DATE/TIME PROCEDURE ORDERING PROVIDER [id number] 02/10/2022 05:[address] Head or Brain w/o [id number] -KIBE, BEENA Contrast CPT code 27148 Reason For Exam (CT Head or Brain w/o Contrast) facial trauma Report Examination: CT Head Clinical Information: Pain Comparison: None Findings: Serial axial [address] images were obtained through the skull without intravenous contrast. Coronal, sagittal, and axial images were reconstructed. The ventricular system and cortical sulci are within normal limits. Champion white differentiation is well preserved. There is no evidence of gross mass, hemorrhage or edema. No areas of mass-effect or infarct are seen. Sinuses appear well pneumatized. Impression: Unremarkable noncontrast CT scan of the head. No evidence of acute intracranial process. EXAMINATION: CT Maxillofacial w/o Contrast INDICATION: Pain COMPARISON: None available. TECHNIQUE: 0.5 mm axial images of the maxillofacial structures were obtained without contrast. Coronal and sagittal reformatted images were reviewed. FINDINGS: Scalp laceration/hematoma containing a 5 mm radiopaque foreign body, just to the right of midline. The frontal sinuses and frontal recesses are well-aerated. The ethmoid air cells are well-aerated. The medial orbital napier are intact. The Computed Tomography Report ethmoid roofs are symmetric. The sphenoid sinuses and sphenoethmoidal recesses are well-aerated. The maxillary antra are well aerated. The ostiomeatal units are well-aerated. The nasal septum is in the midline. The nasal cavity is well-aerated. Visualized portions of the brain and orbits are unremarkable. IMPRESSION: 1. Scalp laceration/hematoma containing a 5 mm radiopaque foreign body, just to the right of midline. 2. No osseous injury. Report Dictated on --- Final --- Dictating Physician: MD MUNOZ JASON Signed Date and Time: 02/10/2022 6:08 am Signed by: MD MUNOZ JASON Transcribed Date and Time: 02/10/2022 6:09 [facility] Minesh Munoz MD - 02/10/2022 Patient Name: OSMAN OMALLEY Computed Tomography ACCESSION EXAM DATE/TIME PROCEDURE ORDERING PROVIDER [id number] 02/10/2022 05:[address] Head or Brain w/o [id number] -KIBE, BEENA Contrast CPT code 42163 Reason For Exam (CT Head or Brain w/o Contrast) facial trauma Report Examination: CT Head Clinical Information: Pain Comparison: None Findings: Serial axial [address] images were obtained through the skull without intravenous contrast. Coronal, sagittal, and axial images were reconstructed. The ventricular system and cortical sulci are within normal limits. Champion white differentiation is well preserved. There is no evidence of gross mass, hemorrhage or edema. No areas of mass-effect or infarct are seen. Sinuses appear well pneumatized. Impression: Unremarkable noncontrast CT scan of the head. No evidence of acute intracranial process. EXAMINATION: CT Maxillofacial w/o Contrast INDICATION: Pain COMPARISON: None available. TECHNIQUE: 0.5 mm axial images of the maxillofacial structures were obtained without contrast. Coronal and sagittal reformatted images were reviewed. FINDINGS: Scalp laceration/hematoma containing a 5 mm radiopaque foreign body, just to the right of midline. The frontal sinuses and frontal recesses are well-aerated. The ethmoid air cells are well-aerated. The medial orbital napier are intact. The Computed Tomography Report ethmoid roofs are symmetric. The sphenoid sinuses and sphenoethmoidal recesses are well-aerated. The maxillary antra are well aerated. The ostiomeatal units are well-aerated. The nasal septum is in the midline. The nasal cavity is well-aerated. Visualized portions of the brain and orbits are unremarkable. IMPRESSION: 1. Scalp laceration/hematoma containing a 5 mm radiopaque foreign body, just to the right of midline. 2. No osseous injury. Report Dictated on --- Final --- Dictating Physician: MD MUNOZ JASON Signed Date and Time: 02/10/2022 6:08 am Signed by: MD MUNOZ JASON Transcribed Date and Time: 02/10/2022 6:09 [facility] Work Phone: [facility] Work Phone: Patient Name: OSMAN OMALLEY Computed Tomography ACCESSION EXAM DATE/TIME PROCEDURE ORDERING PROVIDER [id number] 02/10/2022 05:[address] Maxillofacial w/o [id number] -KIBE, BEENA Contrast CPT code 83913 Reason For Exam (CT Maxillofacial w/o Contrast) facial trauma Report Examination: CT Head Clinical Information: Pain Comparison: None Findings: Serial axial [address] images were obtained through the skull without intravenous contrast. Coronal, sagittal, and axial images were reconstructed. The ventricular system and cortical sulci are within normal limits. Champion white differentiation is well preserved. There is no evidence of gross mass, hemorrhage or edema. No areas of mass-effect or infarct are seen. Sinuses appear well pneumatized. Impression: Unremarkable noncontrast CT scan of the head. No evidence of acute intracranial process. EXAMINATION: CT Maxillofacial w/o Contrast INDICATION: Pain COMPARISON: None available. TECHNIQUE: 0.5 mm axial images of the maxillofacial structures were obtained without contrast. Coronal and sagittal reformatted images were reviewed. FINDINGS: Scalp laceration/hematoma containing a 5 mm radiopaque foreign body, just to the right of midline. The frontal sinuses and frontal recesses are well-aerated. The ethmoid air cells are well-aerated. The medial orbital napier are intact. The Computed Tomography Report ethmoid roofs are symmetric. The sphenoid sinuses and sphenoethmoidal recesses are well-aerated. The maxillary antra are well aerated. The ostiomeatal units are well-aerated. The nasal septum is in the midline. The nasal cavity is well-aerated. Visualized portions of the brain and orbits are unremarkable. IMPRESSION: 1. Scalp laceration/hematoma containing a 5 mm radiopaque foreign body, just to the right of midline. 2. No osseous injury. Report Dictated on --- Final --- Dictating Physician: MD MUNOZ JASON Signed Date and Time: 02/10/2022 6:08 am Signed by: MD MUNOZ JASON Transcribed Date and Time: 02/10/2022 6:09 [facility] Minesh Munoz MD - 02/10/2022 Patient Name: OSMAN OMALLEY Computed Tomography ACCESSION EXAM DATE/TIME PROCEDURE ORDERING PROVIDER [id number] 02/10/2022 05:[address] Maxillofacial w/o [id number] -KIBE, BEENA Contrast CPT code 32745 Reason For Exam (CT Maxillofacial w/o Contrast) facial trauma Report Examination: CT Head Clinical Information: Pain Comparison: None Findings: Serial axial [address] images were obtained through the skull without intravenous contrast. Coronal, sagittal, and axial images were reconstructed. The ventricular system and cortical sulci are within normal limits. Champion white differentiation is well preserved. There is no evidence of gross mass, hemorrhage or edema. No areas of mass-effect or infarct are seen. Sinuses appear well pneumatized. Impression: Unremarkable noncontrast CT scan of the head. No evidence of acute intracranial process. EXAMINATION: CT Maxillofacial w/o Contrast INDICATION: Pain COMPARISON: None available. TECHNIQUE: 0.5 mm axial images of the maxillofacial structures were obtained without contrast. Coronal and sagittal reformatted images were reviewed. FINDINGS: Scalp laceration/hematoma containing a 5 mm radiopaque foreign body, just to the right of midline. The frontal sinuses and frontal recesses are well-aerated. The ethmoid air cells are well-aerated. The medial orbital napier are intact. The Computed Tomography Report ethmoid roofs are symmetric. The sphenoid sinuses and sphenoethmoidal recesses are well-aerated. The maxillary antra are well aerated. The ostiomeatal units are well-aerated. The nasal septum is in the midline. The nasal cavity is well-aerated. Visualized portions of the brain and orbits are unremarkable. IMPRESSION: 1. Scalp laceration/hematoma containing a 5 mm radiopaque foreign body, just to the right of midline. 2. No osseous injury. Report Dictated on --- Final --- Dictating Physician: MD MUNOZ JASON Signed Date and Time: 02/10/2022 6:08 am Signed by: MD MUNOZ JASON Transcribed Date and Time: 02/10/2022 6:09 [facility] Work Phone: Radiology Study observation (narrative) [facility] Work Phone: No Panel InformationOrdered By: Minesh Munoz on 02-10-2022 [facility] Work Phone: LABORATORYOrdered By: Faby Lackey on 01-27-2022 ADMITTED TO INTENSIVE CARE UNIT FOR CONDITION OF INTEREST:FIND:PT:^VIRGILIO ENT:ORD: No (01/27/22 5:01 AM) Invalid Interpretation Code AO Auto Urine SS EMPLOYED IN A HEALTHCARE SETTING:FIND:PT:^PATIE NT:ORD: Unknown (01/27/22 5:01 AM) Invalid Interpretation Code AO Auto Urine SS FIRST TEST FOR CONDITION OF INTEREST:FIND:PT:^VIRGILIO ENT:ORD: Unknown (01/27/22 5:01 AM) Invalid Interpretation Code AO Auto Urine SS HAS SYMPTOMS RELATED TO CONDITION OF INTEREST:FIND:PT:^VIRGILIO ENT:ORD: Yes (01/27/22 5:01 AM) Invalid Interpretation Code AO Auto Urine SS Illness or injury onset date and time [id number] Invalid Interpretation Code AO Auto Urine SS Patient was hospitalized because of this condition No (01/27/22 5:01 AM) Invalid Interpretation Code AO Auto Urine SS status Not (01/27/22 5:01 AM) Invalid Interpretation Code AO Auto Urine SS RESIDES IN A CONGREGATE CARE SETTING:FIND:PT:^PATIE NT:ORD: Unknown (01/27/22 5:01 AM) Invalid Interpretation Code AO Auto Urine SS SARS-CoV-2 (COVID-19) RNA GLENIS+probe Ql (Resp) Negative results do not preclude SARS-CoV-2 infection and should not be used as the sole basis for patient management decisions. Negative results must be combined with clinical observations, patient history, and epidemiological information.There is a risk of false negative values resulting from improperly collected, transported, or handled specimens.There is a risk of false negative values due to the presence of sequence variants in the pathogen targets of the assay, procedural errors, amplification inhibitors in specimens, or inadequate numbers of organisms for amplification.MINESH SARS-CoV-2 Assay is a Real-Time reverse-transcripta se polymerase chain reaction (RT-PCR) based qualitative in vitro diagnostic test intended for the qualitative detection of nucleic acid from the SARS-CoV-2 in nasopharyngeal swab specimens collected from individuals suspected of COVID-19 by their healthcare provider. Testing is limited to laboratories certified under the Clinical Laboratory Improvement Amendments of 1988 (CLIA), 42 U.S.C. 263a, to perform moderate and high complexity tests. Invalid Interpretation Code AO Auto Urine SS LABORATORYOrdered By: Noa Bright on 01-27-2022 Appearance (U) Clear (01/27/22 4:41 AM) Invalid Interpretation Code Clear AO Auto Urine SS Bilirubin Ql (U) Negative (01/27/22 4:41 AM) Invalid Interpretation Code Negative AO Auto Urine SS Color (U) Yellow (01/27/22 4:41 AM) Invalid Interpretation Code AO Auto Urine SS Glucose Test strip (U) [Mass/Vol] Negative Invalid Interpretation Code Negativemg/dL AO Auto Urine SS Hemoglobin Auto test strip (U) [Mass/Vol] Negative (01/27/22 4:41 AM) Invalid Interpretation Code Negative AO Auto Urine SS Ketones Ql (U) Negative Invalid Interpretation Code Negativemg/dL AO Auto Urine SS UA Leuk Est Negative (01/27/22 4:41 AM) Invalid Interpretation Code Negative AO Auto Urine SS UA Nitrite Negative (01/27/22 4:41 AM) Invalid Interpretation Code Negative AO Auto Urine SS UA pH 5.5 (01/27/22 4:41 AM) Invalid Interpretation Code 5.0 - 8.0 AO Auto Urine SS UA Protein Negative Invalid Interpretation Code Negativemg/dL AO Auto Urine SS UA Spec Grav >=1.030 *ABN* (01/27/22 4:41 AM) Invalid Interpretation Code 1.015-1.025 AO Auto Urine SS UA Specimen Type Clean Catch (01/27/22 4:41 AM) Invalid Interpretation Code AO Auto Urine SS UA Urobilinogen 0.2 E.U./dL Invalid Interpretation Code 0.2-1.0E.U./d L AO Auto Urine SS Basophil, Absolute 0.0 103/mcL Invalid Interpretation Code 0.0 - 0.2 10^3/mcL AO Workflow SS Basophils/100 WBC (Bld) 0.3 % Invalid Interpretation Code 0.0 - 2.5 % AO Workflow SS Calcium [Mass/Vol] 8.9 mg/dL Invalid Interpretation Code 8.4 - 10.2 mg/dL AO ADM SS Chloride [Moles/Vol] 100 mmol/L Invalid Interpretation Code 98 - 107 mmol/L AO ADM SS CO2 [Moles/Vol] 33 mmol/L Invalid Interpretation Code 22 - 29 mmol/L AO ADM SS Creatinine [Mass/Vol] 1.08 mg/dL Invalid Interpretation Code 0.70 - 1.30 mg/dL AO ADM SS Electrolyte Balance 6.0 mEq/L Invalid Interpretation Code 4.0 - 15.0 mEq/L AO ADM SS Eosinophil, Absolute 0.1 103/mcL Invalid Interpretation Code 0.0 - 0.4 10^3/mcL AO Workflow SS Eosinophils/100 WBC (Bld) 1.2 % Invalid Interpretation Code 0.0 - 7.0 % AO Workflow SS Erythrocyte distribution width (RBC) [Ratio] 13.8 % Invalid Interpretation Code 11.5 - 14.5 % AO Workflow SS Glucose [Mass/Vol] 105 mg/dL Invalid Interpretation Code 70 - 105 mg/dL AO ADM SS Hematocrit (Bld) [Volume fraction] 43.3 % Invalid Interpretation Code 42.0 - 52.0 % AO Workflow SS Hemoglobin (Bld) [Mass/Vol] 15.0 G/dL Invalid Interpretation Code 14.0 - 18.0 G/dL AO Workflow SS Lymphocyte, Absolute 1.4 103/mcL Invalid Interpretation Code 0.8 - 3.9 10^3/mcL AO Workflow SS Lymphocytes/100 WBC (Bld) 14.3 % Invalid Interpretation Code 10.0 - 50.0 % AO Workflow SS MCH (RBC) [Entitic mass] 30.9 pg Invalid Interpretation Code 27.0 - 31.2 pg AO Workflow SS MCHC 34.6 G/dL Invalid Interpretation Code 31.8 - 35.4 G/dL AO Workflow SS MCV (RBC) [Entitic vol] 89.4 fL Invalid Interpretation Code 80.0 - 94.0 fL AO Workflow SS Monocyte distribution width Auto (Bld) [Entitic vol] 15.92 Invalid Interpretation Code 0.00 - 20.00 AO Workflow SS Comment on above: Result Comment: For ED adult patients suspected of sepsis, MDW<=20.0 does not rule out sepsis or risk of sepsis Monocyte, Absolute 0.9 103/mcL Invalid Interpretation Code 0.2 - 1.0 10^3/mcL AO Workflow SS Monocytes/100 WBC (Bld) 9.2 % Invalid Interpretation Code 1.7 - 13.0 % AO Workflow SS Neutrophil, Absolute 7.5 103/mcL Invalid Interpretation Code 2.9 - 6.2 10^3/mcL AO Workflow SS Neutrophils/100 WBC (Bld) 75.0 % Invalid Interpretation Code 37.0 - 80.0 % AO Workflow SS Platelet mean volume (Bld) [Entitic vol] 6.9 fL Invalid Interpretation Code 7.4 - 10.4 fL AO Workflow SS Platelets (Bld) [#/Vol] 256 103/mcL Invalid Interpretation Code 130 - 400 10^3/mcL AO Workflow SS Potassium [Moles/Vol] 4.1 mmol/L Invalid Interpretation Code 3.5 - 5.1 mmol/L AO ADM SS RBC (Bld) [#/Vol] 4.85 106/mcL Invalid Interpretation Code 4.04 - 6.13 10^6/mcL AO Workflow SS Sodium [Moles/Vol] 139 mmol/L Invalid Interpretation Code 136 - 145 mmol/L AO ADM SS Urea nitrogen [Mass/Vol] 13 mg/dL Invalid Interpretation Code 7 - 18 mg/dL AO ADM SS Urea nitrogen/Creatinine [Mass ratio] 12 ratio Invalid Interpretation Code 7 - 27 ratio AO ADM SS WBC (Bld) [#/Vol] 10.0 103/mcL Invalid Interpretation Code 4.6 - 10.8 10^3/mcL AO Workflow SS LABORATORYOrdered By: SYSTEM SYSTEM on 01-27-2022 GFR 92 ml/min/1.73sqm Invalid Interpretation Code AO Chemistry S GFR Non- 76 ml/min/1.73sqm Invalid Interpretation Code AO Chemistry S Vital Signs Date Time Vital Sign Value Performing Clinician Cindy pollard 10-27-2023 22:11-0400 Diastolic Blood Pressure Non-Invasive 88 mm[Hg] VITALY VILLARREAL MD [place] 24290-07-2024 22:11-0400 Heart rate 86 /min VITALY VILLARREAL MD [facility] 10-27-2023 22:11-0400 Respiratory rate 16 /min VITALY VILLARREAL MD [facility] 10-27-2023 22:11-0400 Systolic Blood Pressure Non-Invasive 130 mm[Hg] VITALY VILLARREAL MD [facility] 10-27-2023 20:59-0400 Body temperature 98.78 [degF] VITALY VILLARREAL MD [facility] 10-27-2023 20:59-0400 Body weight 74.9 kg VITALY VILLARREAL MD [facility] 10-27-2023 20:59-0400 Diastolic Blood Pressure Non-Invasive 97 mm[Hg] VITALY VILLARREAL MD [facility] 10-27-2023 20:59-0400 Heart rate 93 /min VITALY VILLARREAL MD [facility] 10-27-2023 20:59-0400 Respiratory rate 16 /min VITALY VILLARREAL MD [facility] 10-27-2023 20:59-0400 Systolic Blood Pressure Non-Invasive 157 mm[Hg] VITALY VILLARREAL MD [facility] 03-28-2023 11:05-0500 Body temperature 98.6 [degF] DR DEEPTI CASTILLO MD [facility] 03-28-2023 11:05-0500 Body weight 72.[address] DEEPTI CATSILLO MD [facility] 03-28-2023 11:05-0500 Diastolic Blood Pressure Non-Invasive 80 mm[Hg] DR DEEPTI CASTILLO MD [facility] 03-28-2023 11:05-0500 Heart rate 99 /min DR DEEPTI CASTILLO MD [facility] 03-28-2023 11:05-0500 Respiratory rate 16 /min DR DEEPTI CASTILLO MD [facility] 03-28-2023 11:05-0500 Systolic Blood Pressure Non-Invasive 109 mm[Hg] DR DEEPTI CASTILLO MD [facility] 02-10-2022 04:43-0400 Body mass index (BMI) [Ratio] 24.37 kg/m2 Beena Brown MD Work Phone: [facility] 02-10-2022 04:43-0400 Body weight 74.84 kg Beena Brown MD Work Phone: [facility] 02-10-2022 04:42-0400 Body temperature 98.29 [degF] Beena Brown MD Work Phone: [facility] 02-10-2022 04:42-0400 Diastolic blood pressure 91 mm[Hg] Beena Brown MD Work Phone: [facility] 02-10-2022 04:42-0400 Heart rate 73 /min Beena Brown MD Work Phone: [facility] 02-10-2022 04:42-0400 Respiratory rate 16 /min Beena Brown MD Work Phone: [facility] 02-10-2022 04:42-0400 SaO2% (BldA) [Mass fraction] 99 % Beena Brown MD Work Phone: [facility] 02-10-2022 04:42-0400 Systolic blood pressure 136 mm[Hg] Beena Brown MD Work Phone: [facility] 01-27-2022 05:05-0400 Diastolic blood pressure 78 mm[Hg] NAZARIO ESQUIVEL MD [facility] 01-27-2022 05:05-0400 Mean blood pressure 95 mm[Hg] NAZARIO ESQUIVEL MD [facility] 01-27-2022 05:05-0400 Respiratory rate 20 /min NAZARIO ESQUIVEL MD [facility] 01-27-2022 05:05-0400 Systolic blood pressure 128 mm[Hg] NAZARIO ESQUIVEL MD [facility] 01-27-2022 03:06-0400 Body temperature 98.24 [degF] NAZARIO ESQUIVEL MD [facility] 01-27-2022 03:06-0400 Diastolic blood pressure 86 mm[Hg] NAZARIO ESQUIVEL MD [facility] 01-27-2022 03:06-0400 Heart rate 91 /min NAZARIO ESQUIVEL MD [facility] 01-27-2022 03:06-0400 Respiratory rate 20 /min NAZARIO ESQUIVEL MD [facility] 01-27-2022 03:06-0400 Systolic blood pressure 132 mm[Hg] NAZARIO ESQUIVEL MD [facility] 10-19-2021 17:14-0400 Body height 175.3 cm VITLAY VILLARREAL MD [facility] 10-19-2021 17:14-0400 Body temperature 98.96 [degF] VITALY VILLARREAL MD [facility] 10-19-2021 17:14-0400 Body weight 77.3 kg VITALY VILLARREAL MD [facility] 10-19-2021 17:14-0400 Diastolic blood pressure 80 mm[Hg] VITALY VILLARREAL MD [facility] 10-19-2021 17:14-0400 Heart rate 100 /min VITALY VILLARREAL MD [facility] 10-19-2021 17:14-0400 Respiratory rate 24 /min VITALY VILLARREAL MD [facility] 10-19-2021 17:14-0400 Systolic blood pressure 131 mm[Hg] VITALY VILLARREAL MD [facility] 07-18-2021 09:38-0400 Body height 170.2 cm IRAIS HILTONT DO [facility] 07-18-2021 09:38-0400 Body temperature 97.7 [degF] IRAIS FROMMELT DO [facility] 07-18-2021 09:38-0400 Body weight 72.7 kg IRAIS FROMMELT DO [facility] 07-18-2021 09:38-0400 Diastolic blood pressure 98 mm[Hg] IRAIS FROMMELT DO [facility] 07-18-2021 09:38-0400 Heart rate 102 /min IRAIS FROMMELT DO [facility] 07-18-2021 09:38-0400 Respiratory rate 20 /min IRAIS SMITH DO [facility] 07-18-2021 09:38-0400 Systolic blood pressure 154 mm[Hg] IRAIS SMITH DO [facility] Encounters Encounter Date Encounter Type Care Provider Facility Start: 10-13-2024 End: 10-13-2024 Emergency department patient visit DIEGO HARRIS MD [facility] Start: 10-27-2023 End: 10-27-2023 Emergency department patient visit VITALY VILLARREAL MD [facility] Start: 03-28-2023 End: 03-28-2023 Emergency department patient visit DR DEEPTI CASTILLO MD [facility] Start: 02-10-2022 End: 02-10-2022 Emergency department patient visit [facility] Start: 02-10-2022 End: 02-10-2022 Emergency department patient visit Beena Brown MD Work Phone: [facility] Comment on above: Facial laceration, i nitial encounter (Primary Dx) Start: 01-27-2022 End: 01-27-2022 Emergency department patient visit NAZARIO ESQUIVEL MD [facility] Start: 10-19-2021 End: 10-19-2021 Emergency department patient visit VITALY VILLARREAL MD [facility] Start: 07-18-2021 End: 07-18-2021 Emergency department patient visit IRAIS SMITH DO [facility] Procedures Date Procedure Procedure Detail Performing Clinician Start: 02-10-2022 LACERATION REPAIR Ana Brown MD Work Phone: Start: 02-10-2022 Ct head/brain w/o contrast material Beena Brown MD Work Phone: Amputated finger (finding) IRAIS SMTIH DO Congenital anomaly o f eye (disorder) [facility] Plan of Treatment Date Care Activity Detail Author Start: 11-07-2030 DTaP/Tdap/Td vaccine (2 - Td or Tdap) DTaP/Tdap/Td vaccine (2 - Td or Tdap) [facility] Start: 11-07-2025 Lipid panel Lipids [facility] Start: 11-20-2021 Influenza vaccination Flu vaccine (# 1) [facility] Start: 11-07-2021 Depression Screen Depression Screen [facility] Start: 1999 Hepatitis C screening Hepatitis C sc reen [facility] Start: 1996 HIV screening HIV screen [facility] Start: 1987 Pneumococcal 0-64 ye ars Vaccine (1 - PCV) Pneumococcal 0-64 years Vaccine (1 - PCV) [facility] Start: 1981 COVID-19 Vaccine (#1) COVID-19 Vacci ne (#1) [facility] Immunizations Immunization Date Immunization Notes Care Provider Fa cility 11-07-2020 tetanus toxoid, redu jasiel diphtheria toxoid, and acellular pertussis vaccine, adsorbed Beena Brown MD Work Phone: [facility] Payers Date Payer Category Payer Self-pay 1981 Unknown [id number] 1981 Unknown [id number] 1981 Unknown [id number] 1981 Unknown [id number] Social History Date Type Detail Facility Start: 12-07-2018 End: 03-28-2023 Tobacco smoking status Heavy tobacco smoker (finding) [facility] Sex Assigned At [facility] Start: 11-07-1997 [facility] Start: 11-07-1997 History of tobacco use Cigarette Smo ker [facility] Work Phone: Start: 11-07-2020 Cigarettes smoked current (pack per day) - Reported 1 [facility] Work Phone: Start: 11-07-2020 Tobacco use and exposure Smoke less tobacco non-user [facility] Work Phone: Start: 02-10-2022 Alcohol intake Current drinke r of alcohol (finding) [facility] Work Phone: Start: 11-07-2020 End: 02-10-2022 History SDOH Alcohol Frequency 2 [facility] Work Phone: Start: 11-07-2020 End: 02-10-2022 History SDOH Alcohol Std Drinks 1 [facility] Work Phone: Start: 11-07-2020 History SDOH Physica l Activity DPW 7 [facility] Work Phone: Start: 11-07-2020 History SDOH Physica l Activity MPS 6 [facility] Work Phone: Start: 11-07-2020 History SDOH Financial 4 [facility] Work Phone: Start: 09-22-2016 Tobacco Comment unable to assess [facility] Work Phone: Start: 11-07-2020 Alcohol Comment hardly at all [facility] Work Phone: Start: 1980 Sex Assigned At Not on file [facility] Work Phone: Start: 01-31-2022 End: 02-10-2022 Exposure to SARS-CoV-2 (event) Not sure [facility] Work Phone: Start: 12-15-2013 Sex Male (finding) [facility] Functional Status Date Assessment Result Facility 10-27-2023 Functional Status [facility] 10-27-2023 Functional Status Standard Safet y ID band on, Allergy Band on, Call device within reach, Bed in low position, Wheels locked, Upper/Half-Length side-rails up, Phone within reach, Safety level maintained [facility] 03-28-2023 Functional Status Standard Safet y ID band on, Call device within reach, Bed in low position, Wheels locked, Upper/Half-Length side-rails up, Bedside Cart Locked, Safety level maintained [facility] 01-27-2022 Functional Status [facility] 01-27-2022 Functional Status [facility] 07-18-2021 Functional Status [facility] Mental Status Date Assessment Result Facility 10-27-2023 Mental Status Orientation Oriented x 4 [facility] 10-27-2023 Mental Status [facility] 03-28-2023 Mental Status Orientation Oriented x 4 [facility] 01-27-2022 Mental Status Orientation Oriented x 4 [facility] 01-27-2022 Mental Status [facility] 07-18-2021 Mental Status [facility] Clinical Notes 07-18-2021 to 10-13-2024 Note Date & Type Note Facility 10-13-2024 Hospital Discharg e instructions Patient Education 10/13/2024 19:19:48 Head Injury (Adult) Head Injury (Adult) You have a head injury. It does not appear serious at this time. But symptoms of a more serious problem, such as a mild brain injury (concussion) or bruising or bleeding in the brain, may appear later. For this reason, you or someone caring for you will need to watch for the symptoms listed below. Once you re home, also be sure to follow any care instructions you re given. Home care Watch for the following symptoms Seek emergency medical care if you have any of these symptoms over the next hours to days: Headache Nausea or vomiting Dizziness Sensitivity to light or noise Unusual sleepiness or grogginess Trouble falling asleep Personality changes Vision changes Memory loss Confusion Trouble walking or clumsiness Loss of consciousness (even for a short time) Inability to be awakened Stiff neck Weakness or numbness in any part of the body Seizures General care If you were prescribed medicines for pain, use them as directed. Note: Don t take other medicines for pain without talking to your provider first. To help reduce swelling and pain, apply a cold source to the injured area for up to 20 minutes at a time. Do this as often as directed. Use a cold pack or bag of ice wrapped in a thin towel. Never apply a cold source directly to the skin. If you have cuts or scrapes as a result of your head injury, care for them as directed. For the next 24 hours (or longer, if instructed): oDon t drink alcohol or use sedatives or other medicines that make you sleepy. oDon t drive or operate machinery. oDon t do anything strenuous, such as heavy lifting or straining. oLimit tasks that require concentration. This includes reading, using a smartphone or computer, watching TV, and playing video games. oDon t return to sports or other activities that could result in another head injury. Follow-up care Follow up with your healthcare provider, or as directed. If imaging tests were done, they will be reviewed by a doctor. You will be told the results and any new findings that may affect your care. When to seek medical advice Call your healthcare provider right away if any of these occur: Pain doesn t get better or worsens New or increased swelling or bruising Fever of 100.4 F (38 C) or higher, or as directed by your provider Increased redness, warmth, drainage, or bleeding from the injured area Fluid drainage or bleeding from the nose or ears Any depression or bony abnormality in the injured area Persistent confusion or lethargy Bruising behind the ears or bruising around the eyes [phone] [employer]. [address] [place] [address], [place] [address]. All rights reserved. This information is not intended as a substitute for professional medical care. Always follow your healthcare professional's instructions. Follow Up Care 10/13/2024 18:43:59 With:KEKE PINTO Address: [address] [place] [address] [facility] (1) When:2-4 days Comments:Follow-up as needed.Tylenol or Advil for pain as needed.You are cleared to return to work without restrictions.Return to the ED if symptoms worsen. [facility] 10-13-2024 Note Discharge Instructions Thank you for allowing [facility] to assist you with your healthcare needs. The following is important discharge information regarding your hospital visit. Diagnosis from Today's Visit Mild closed head injury What to Do Next Instructions from Your Care Team Discharge Return to Work, School, or Sports (Return to Work, School, or Sports) - Ordered -- 10/14/24, May return to: work, 10/13/24 19:32:00 EDT Post Acute Orders No qualifying data available. You Need to Schedule the Following Appointments Follow Up with KEKE PINTO When:Within 2-4 days Where:[address] [place] [address] [facility] (1) Additional Information: Follow-up as needed. Tylenol or Advil for pain as needed. You are cleared to return to work without restrictions. Return to the ED if symptoms worsen. Allergies Flexeril Ritalin traMADol Medications Please ask your primary doctor or pharmacist before taking any other medication not listed, including over the counter drugs, herbal medications, vitamins and or supplements as they may interact with your home medications. Please take this list to your next doctor s visit. Bring all medications you take, including over the counter medications, herbals and other supplements with you to your doctor s visit. Patients and families are reminded to discard old lists and to update any records with all medication providers or retail pharmacies. Education Materials Head Injury (Adult) You have a head injury. It does not appear serious at this time. But symptoms of a more serious problem, such as a mild brain injury (concussion) or bruising or bleeding in the brain, may appear later. For this reason, you or someone caring for you will need to watch for the symptoms listed below. Once you re home, also be sure to follow any care instructions you re given. Home care Watch for the following symptoms Seek emergency medical care if you have any of these symptoms over the next hours to days: Headache Nausea or vomiting Dizziness Sensitivity to light or noise Unusual sleepiness or grogginess Trouble falling asleep Personality changes Vision changes Memory loss Confusion Trouble walking or clumsiness Loss of consciousness (even for a short time) Inability to be awakened Stiff neck Weakness or numbness in any part of the body Seizures General care If you were prescribed medicines for pain, use them as directed. Note: Don t take other medicines for pain without talking to your provider first. To help reduce swelling and pain, apply a cold source to the injured area for up to 20 minutes at a time. Do this as often as directed. Use a cold pack or bag of ice wrapped in a thin towel. Never apply a cold source directly to the skin. If you have cuts or scrapes as a result of your head injury, care for them as directed. For the next 24 hours (or longer, if instructed): oDon t drink alcohol or use sedatives or other medicines that make you sleepy. oDon t drive or operate machinery. oDon t do anything strenuous, such as heavy lifting or straining. oLimit tasks that require concentration. This includes reading, using a smartphone or computer, watching TV, and playing video games. oDon t return to sports or other activities that could result in another head injury. Follow-up care Follow up with your healthcare provider, or as directed. If imaging tests were done, they will be reviewed by a doctor. You will be told the results and any new findings that may affect your care. When to seek medical advice Call your healthcare provider right away if any of these occur: Pain doesn t get better or worsens New or increased swelling or bruising Fever of 100.4 F (38 C) or higher, or as directed by your provider Increased redness, warmth, drainage, or bleeding from the injured area Fluid drainage or bleeding from the nose or ears Any depression or bony abnormality in the injured area Persistent confusion or lethargy Bruising behind the ears or bruising around the eyes [phone] [employer]. [address] [place] [address], [place] [address]. All rights reserved. This information is not intended as a substitute for professional medical care. Always follow your healthcare professional's instructions. Additional Information VACCINATE! IT SAVES LIVES! Members of the community who have not yet received the COVID-19 vaccine and would like to receive it can visit one of [facility] vaccine clinics. There are many vaccine clinic locations within the [facility]. For locations and available times, please visit www.gettheshot.coronavirus.[place]. gov/. It is important to note that some COVID mobile vaccine clinics are held outdoors and may be canceled in rainy or stormy conditions. To learn more about pediatric vaccinations (ages 5-11), we invite you to visit the [employer] [facility] webpage. https://www.[employer]childrens.org/p ages/9792-Unvpx-Gykdiutlnau-Freq lnacoc-Moehi-Vktclogfp.html To learn more about the COVID-19 vaccine, we invite you to visit the CDC website for a list of frequently asked questions. https://www.cdc.gov/coronavirus/ 2019-ncov/vaccines/faq.html [facility] Patient Portal Access Instructions: Stay connected with your healthcare team and access your personal medical information anytime with the [facility] Patient Portal. If you would like a full copy of your medical records please contact the [facility] Medical Records Department Saturday through Saturday between 8a.m. and 4:30p.m. Please follow the directions below to access the portal: 1.Access the email account you provided upon registration to the hospital.2.Look for an invitation email from [facility].3.Open the email and access the invitation link: Accept Invitation to [facility].Fill in the required dan to create your account. Sign into [email or web address] with your username and password that you created in the above steps to stay up to date. You can then view a summary of results, a summary of your visits, and the ability to download your summaries to your computer or send the information securely to a physician. Remember that your healthcare information is confidential, so carefully consider who you will allow to register on the [employer] Patient Portal for access to your information. You can also access the [employer] Patient Portal on the [employer] alexia. Simply click on Health Records under Health Data and then click on the [employer] logo. HOW TO SAFELY DISPOSE OF PRESCRIPTION MEDICATIONS Please use one of the following methods to safely dispose of your unused medications. 1.Use a drug disposal kit: the drug disposal pouch allows you to safely discard your old and unused drugs. Ask your nurse to give you one when you are discharged.2.Visit a local take-back location: Many local pharmacies and police departments have programs that collect old and unwanted prescription drugs. Call your local pharmacy or go to http://[employer].LiquidPractice/2U3Eg4z to find one close to you.3.Make use of household items: Use cat litter or old coffee grounds to dispose medications if other options are not available. Mix your drugs with these household products, seal them in an airtight container and throw it into the garbage. Call [facility]: [phone] to be sure your drugs can be disposed of in this way. Some medicines may require a different approach.4.Never flush your medications down the toilet. IF YOU HAVE BEEN PRESCRIBED AN OPIOIDS FOR PAIN If you have been prescribed an opioid (such as hydrocodone, oxycodone or morphine), it is critical to understand the possible side effects and risks of opioid pain medications. Even when taken as directed, opioids can have several side effects including: Tolerance, meaning you might need to take more of a medication for the same pain relief. Nausea, vomiting and/or constipation. Sleepiness, dizziness, dry mouth, confusion, depression or itching. Physical dependence, meaning you have withdrawal symptoms when a medication is stopped ? this can develop within a few days. KNOW YOUR RESPONSIBILITIES It is important to know exactly how much and how often to take the opioid pain medications you are prescribed. Never take opioids in higher amounts or more often than prescribed. Do not combine opioids with alcohol or other drugs that cause drowsiness, such as benzodiazepines, also known as benzos, including diazepam and alprazolam, muscle relaxants or sleep aids. Never sell or share prescription opioids. This is illegal. Store opioids in a secure place and out of reach of others (including children, family, friends and visitors). The last page(s) of this document has been signed and retained as a CHART COPY Signatures Patient Education Materials Head Injury (Adult) Medication Leaflets My discharge plan and instructions have been reviewed and explained to me and I,OSMAN OMALLEY understand my current condition and have read and understand these discharge instructions. I have received a written copy of the plan/instructions. If I have questions, I am aware that I should contact my doctor. 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 Automated exposure control, iterative reconstruction, and/or weight based adjustment of the mA/kV was utilized to reduce the radiation dose to as low as reasonably achievable. COMPARISON: None. HISTORY: ORDERING SYSTEM PROVIDED HISTORY: Reason for Exam: Head trauma, minor, normal mental status FINDINGS: BRAIN/VENTRICLES: There are calcified plaques of internal carotid cavernous segments and vertebral arteries. There are small calcified plaques of the proximal left middle cerebral artery. There is no acute intracranial hemorrhage, mass effect or midline shift. No abnormal extra-axial fluid collection. The newsome-white differentiation is maintained without evidence of an acute infarct. There is no evidence of hydrocephalus. ORBITS: The visualized portion of the orbits demonstrate no acute abnormality. SINUSES: The visualized paranasal sinuses and mastoid air cells demonstrate no acute abnormality. SOFT TISSUES/SKULL: No acute abnormality of the visualized skull or soft tissues. IMPRESSION: No acute intracranial abnormality. There is no evidence of mass, hemorrhage, acute infarct, or calvarial fracture. Interpreted by: Timi Roper Preliminary Report By: Timi Roper Electronically signed By Timi Roper Dictated Date: 10/13/2024 7:58:35 PM Prelim Date: 10/13/2024 8:05:08 PM Sign Date: 10/13/2024 8:05:08 PM Ordering Provider: [facility]07-08-2024 Hospital Discharge instructions Patient Education 10/27/2023 22:48:10 Altered Level of Consciousness (LOC) Altered Level of Consciousness Level of consciousness (LOC) is a measure of a person s ability to interact with other people and to react to what is around them. A person with an altered level of consciousness may not respond to touch or voices. They may look vacant or blank. They may not make eye contact with others. The personmay be limp and may not move for a long time. Or they may show little interest in moving. He or shemay also be confused. There are many causes of altered LOC. They include low blood sugar, infection, medicines, injuries,seizures, stroke, being drunk or other health problems. Altered LOC is a medical emergency. The healthcare provider will do tests to help find the cause. These may include blood tests and imaging tests. The person is treated so breathing and heart rate are stable. An An IV (intravenous) line may be put into a vein in the arm or hand to give medicines. Once the cause of altered LOC is found, the goal is to treat the cause. In almost all cases, the person will be admitted to the hospital for diagnostic testing and observation. Some conditions, such as locked-in syndrome and akinetic mutism, seem like a coma. But the person is perfectly awake. Home care When your loved one is released from the hospital, you will be given guidelines for caring for him or her. In general: Follow the healthcare provider's instructions for giving any prescribed medicines to your child. Stay with your loved one or have another responsible adult look after him or her. Watch carefully for any return of symptoms or changes in behavior. If the person has diabetes, make sure that any approved medicines are given on time and as prescribed. Follow-up care Follow up with your healthcare provider, or our staff as advised. When to seek medical advice Call your healthcare provider right away if new symptoms appear. Call 911 Call 911 or get medical care right away Iif symptoms of altered LOC return. 5828-[address] [employer] [facility], [place] [address]. All rights reserved. This information is not intended as a substitute for professional medical care. Always follow yourhealthcare professional's instructions. Follow Up Care 10/27/2023 20:43:34 With:KEKE PINTO MD Address: [address] [place] [address]- When:2-4 days [facility] 07-07-2024 Note Discharge Instructions Thank you for allowing [facility] to assist you with your healthcare needs. The following is importantdischarge information regarding your hospital visit. Diagnosis from Today's Visit Drowsiness What to Do Next Instructions from Your Care Team No qualifying data available. Post Acute Orders No qualifying data available. You Need to Schedule the Following Appointments Follow Up with KEKE PINTO MD When:Within 2-4 days Where:[address] [place] [address]- Allergies Flexeril Ritalin traMADol Medications Please ask your primary doctor or pharmacist before taking any other medication not listed, including over the counter drugs, herbal medications, vitamins and or supplements as they may interact withyour home medications. Please take this list to your next doctor s visit. Bring all medications you take, including over the counter medications, herbals and other supplements with you to your doctor s visit. Patients and families are reminded to discard old lists and to update any records with all medication providers or retail pharmacies. Education Materials Altered Level of Consciousness Level of consciousness (LOC) is a measure of a person s ability to interact with other people and to react to what is around them. A person with an altered level of consciousness may not respond to touch or voices. They may look vacant or blank. They may not make eye contact with others. The personmay be limp and may not move for a long time. Or they may show little interest in moving. He or shemay also be confused. There are many causes of altered LOC. They include low blood sugar, infection, medicines, injuries,seizures, stroke, being drunk or other health problems. Altered LOC is a medical emergency. The healthcare provider will do tests to help find the cause. These may include blood tests and imaging tests. The person is treated so breathing and heart rate are stable. An An IV (intravenous) line may be put into a vein in the arm or hand to give medicines. Once the cause of altered LOC is found, the goal is to treat the cause. In almost all cases, the person will be admitted to the hospital for diagnostic testing and observation. Some conditions, such as locked-in syndrome and akinetic mutism, seem like a coma. But the person is perfectly awake. Home care When your loved one is released from the hospital, you will be given guidelines for caring for him or her. In general: Follow the healthcare provider's instructions for giving any prescribed medicines to your child. Stay with your loved one or have another responsible adult look after him or her. Watch carefully for any return of symptoms or changes in behavior. If the person has diabetes, make sure that any approved medicines are given on time and as prescribed. Follow-up care Follow up with your healthcare provider, or our staff as advised. When to seek medical advice Call your healthcare provider right away if new symptoms appear. Call 911 Call 911 or get medical care right away Iif symptoms of altered LOC return. [phone] [employer]. [address] [place] [address]. All rights reserved. This information is not intended as a substitute for professional medical care. Always follow yourhealthcare professional's instructions. Additional Information VACCINATE! IT SAVES LIVES! Members of the community who have not yet received the COVID-19 vaccine and would like to receive it can visit one of [facility] vaccine clinics. There are many vaccine clinic locations within the [facility]. For locations and available times, please visit www.gettheshot.coronavirus.[place].gov/. It is important to note that some COVID mobile vaccine clinics are held outdoors and may be canceled in rainy or stormy conditions. To learn more about pediatric vaccinations (ages 5-11), we invite you to visit the [facility] webpage. https://www.[email or web address].org/pages/[email or web address]-Ekrcc-Pjesokhmstc-Lfxxbqsjzr-Efdhh-Uxw stions.htmlTo learn more about the COVID-19 vaccine, we invite you to visit the CDC website for a list of frequently asked questions. https://www.cdc.gov/coronavirus/2019-ncov/vaccines/faq.html [facility] Patient Portal Access Instructions: Stay connected with your healthcare team and access your personal medical information anytime with the [facility] Patient Portal. If you would like a full copy of your medical records please contact the [facility] Medical Records Department Saturday through Saturday between 8a.m. and 4:30p.m. Please follow the directions below to access the portal: 1.Access the email account you provided upon registration to the [facility].2.Look for an invitation email from [facility].3.Open the email and access the invitation link: Accept Invitation to [facility].Fill in the required dan to create your account. Sign into [email or web address] with your username and password that you created in the above steps to stay up to date. You can then view a summary of results, a summary of your visits, and the ability to download your summaries to your computer or send the information securely to a physician. Remember that your healthcare information is confidential, so carefully consider who you will allow to register on the [facility] Patient Portal for access to your information. You can also access the [facility] Patient Portal on the [employer] alexia. Simply click on Health Records under [employer] and then click on the [employer] logo. HOW TO SAFELY DISPOSE OF PRESCRIPTION MEDICATIONS Please use one of the following methods to safely dispose of your unused medications. 1.Use a drug disposal kit: the drug disposal pouch allows you to safely discard your old and unuseddrugs. Ask your nurse to give you one when you are discharged.2.Visit a local take-back location: Many local pharmacies and police departments have programs that collect old and unwanted prescriptiondrugs. Call your local pharmacy or go to http://bit.ly/6U6Lh6n to find one close to you.3.Make use of household items: Use cat litter or old coffee grounds to dispose medications if other options arenot available. Mix your drugs with these household products, seal them in an airtight container andthrow it into the garbage. Call [facility]: [phone] to be sure your drugs can be disposed of in this way. Some medicines may require a different approach.4.Never flush your medications down the toilet. IF YOU HAVE BEEN PRESCRIBED AN OPIOIDS FOR PAIN If you have been prescribed an opioid (such as hydrocodone, oxycodone or morphine), it is critical to understand the possible side effects and risks of opioid pain medications. Even when taken as directed, opioids can have several side effects including: Tolerance, meaning you might need to take more of a medication for the same pain relief. Nausea, vomiting and/or constipation. Sleepiness, dizziness, dry mouth, confusion, depression or itching. Physical dependence, meaning you have withdrawal symptoms when a medication is stopped ? this can develop within a few days. KNOW YOUR RESPONSIBILITIES It is important to know exactly how much and how often to take the opioid pain medications you are prescribed. Never take opioids in higher amounts or more often than prescribed. Do not combine opioids with alcohol or other drugs that cause drowsiness, such as benzodiazepines, also known as benzos,including diazepam and alprazolam, muscle relaxants or sleep aids. Never sell or share prescriptionopioids. This is illegal. Store opioids in a secure place and out of reach of others (including children, family, friends and visitors). The last page(s) of this document has been signed and retained as a CHART COPY Signatures Patient Education Materials Altered Level of Consciousness (LOC) Medication Leaflets My discharge plan and instructions have been reviewed and explained to me and IHANNAH ALBERT Eunderstand my current condition and have read and understand these discharge instructions. I have received a written copy of the plan/instructions. If I have questions, I am aware that I should contact my doctor. 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: Date/Time: Relationship to Patient: Witness Name/Signature: Date/Time: [facility]07-07[facility] elev, probable normal early repol pattern Electronic Signature: VITALY VILLARREAL MD 10/27/2023 21:30:54[facility] 07-07-2024 Evaluation + Plan note Diagnostic Tests Pending * Fentanyl Screen, Urine 10/27/23 * Oxycodone Screen, Urine 10/27/23 [facility] 12-07-2023 Hospital Discharge instructions Patient Education 03/28/2023 14:06:15 Ankle Sprain (Adult) Ankle Sprain (Adult) An ankle sprain is a stretching or tearing of the ligaments that hold the ankle joint together. There are no broken bones. An ankle sprain is a common injury for both children and adults. It happens when the ankle turns, twists, or rolls in an awkward way. This can be caused by a sports injury. Or it can happen from doing something as simple as stepping on an uneven surface. Ligaments are made of tough connective tissue. Normally, ligaments stretch a certain amount and then go back to their normal place. A sprain happens when a ligament is forced to stretch more than thenormal amount. A severe sprain can actually tear the ligaments. If you have a severe sprain, you may have felt or heard something like a pop when you were injured. Ankle sprains are given a grade depending on whether they are mild, moderate, or severe: Grade 1 sprain. A mild sprain with minor stretching and damage to the ligament. Grade 2 sprain. A moderate sprain where the ligament is partly torn. Grade 3 sprain. The most severe kind of sprain. The ligament is completely torn. Most sprains take about 4 to 6 weeks to heal. A severe sprain can take several months to recover. Your healthcare provider may order X-rays to be sure you don t have a fracture, or broken bone. The injured area will feel sore. Swelling and pain may make it hard to walk. You may need crutches if walking is painful. Or your provider may have you use a cast boot or air splint. This will dependon the grade of ankle sprain that you have. Home care For a Grade 1 sprain, use RICE (rest, ice, compression, and elevation): Rest your ankle. Don t walk on it. Ice should be used right away to help control swelling. Place an ice pack over the injured area for20 minutes. Do this every 3 to 6 hours for the first 24 to 48 hours. Keep using ice packs to ease pain and swelling as needed. To make an ice pack, put ice cubes in a plastic bag that seals at the top. Wrap the bag in a clean, thin towel or cloth. Never put ice or an ice pack directly on the skin. The ice pack can be put right on the cast, bandage, or splint. As the ice melts, be careful that thecast, bandage, or splint doesn t get wet. If you have a boot, open it to apply an ice pack, unless told otherwise by your provider. Compression devices help to control swelling. They also keep the ankle from moving and support yourinjured ankle. These devices include dressings, bandages, and wraps. Elevate or raise your ankle above the level of your heart when sitting or lying down. This is very important for the first 48 hours. Follow the RICE guidelines for a Grade 2 sprain. This type of sprain will take longer to heal. Yourprovider may have you wear a splint, cast, or brace to keep your ankle from moving. If you have a Grade 3 sprain, you are at risk for long-term ankle instability. In rare cases, surgery may be needed. Your provider may have you wear a short leg cast or a walking boot for 2 to 3 weeks. After 48 hours, it may be helpful to apply heat for 20 minutes several times a day. You can do thiswith a heating pad or warm compress. Or you may want to go back and forth between using ice and heat. Never apply heat directly to the skin. Always wrap the heating pad or warm compress in a clean, thin towel or cloth. You may use hdry-znk-wvscpop pain medicine (NSAIDS or nonsteroidal anti- inflammatory drugs) to control pain, unless another pain medicine was prescribed. Talk with your provider before using these medicines if you have chronic liver or kidney disease, or have ever had a stomach ulcer or gastrointestinal bleeding. Follow any rehabilitation exercises your provider gives you. These can help you be more flexible and improve your balance and coordination. This is helpful in preventing long-term ankle problems. Prevention To help prevent ankle sprains, it s important to have good strength, balance, and flexibility. Be sure to: Always warm up before you exercise or do something very active Be careful when walking or running on uneven or cracked surfaces Wear shoes that are in good condition and fit well Listen to your body s signals to slow down when you are in pain or tired Follow-up care Any X-rays you had today don t show any broken bones, breaks, or fractures. Sometimes fractures dont show up on the first X-ray. Bruises and sprains can sometimes hurt as much as a fracture. These injuries can take time to heal completely. If your symptoms don t get better or they get worse, talk with your healthcare provider. You may need a repeat X-ray. Follow up with your healthcare provider, or as advised. Check for any warning signs listed below. When to seek medical advice Call your healthcare provider right away if any of these occur: Fever of 100.4 F (38 C) or higher, or as directed by your healthcare provider [place] The injury doesn t seem to be healing The swelling comes back The cast or splint has a bad smell The plaster cast or splint gets wet or soft The fiberglass cast or splint gets wet and does not dry for 24 hours The pain or swelling increases, or redness appears Your toes become cold, blue, numb, or tingly The skin is discolored (looks blue, purple, or newsome), has blisters, or is irritated You re-injure your ankle [phone] [employer]. [address] [place] [address]. All rights reserved. This information is not intended as a substitute for professional medical care. Always follow yourhealthcare professional's instructions. Follow Up Care 03/28/2023 10:55:05 With:JONI RAMIRZE Address: [address] [place] [address], [address] [place] [phone] [facility] (1) When:2-4 days Comments:Return to ED if symptoms worsen With:KEKE PINTO MD Address: [address] [place] [address]- When:2-4 days Comments:[facility] to ED if symptoms worsen [facility] Discharge summary Discharge Instructions Thank you for allowing [facility] to assist you with your healthcare needs. The following is importantdischarge information regarding your hospital visit. Diagnosis from Today's Visit Ankle injury Ankle pain-swelling What to Do Next Instructions from Your Care Team Discharge Home Equipment - Ordered -- Walking Boot, 99 month(s), 03/28/23 13:58:00 EST Post Acute Orders No qualifying data available. You Need to Schedule the Following Appointments Follow Up with JONI RAMIREZ When Within 2-4 days Why: Return to ED if symptoms worsen Where: [address] [facility], [address] [place] [address] [phone] Business (1) Follow Up with ANATOLY PINTO MDRELL When Within 2-4 days Why: Return to ED if symptoms worsen Where: [address] [place] [address]- Allergies Flexeril Ritalin traMADol Medications Please ask your primary doctor or pharmacist before taking any other medication not listed, including over the counter drugs, herbal medications, vitamins and or supplements as they may interact withyour home medications. Please take this list to your next doctor s visit. Bring all medications you take, including over the counter medications, herbals and other supplements with you to your doctor s visit. Patients and families are reminded to discard old lists and to update any records with all medication providers or retail pharmacies. Education Materials Ankle Sprain (Adult) An ankle sprain is a stretching or tearing of the ligaments that hold the ankle joint together. There are no broken bones. An ankle sprain is a common injury for both children and adults. It happens when the ankle turns, twists, or rolls in an awkward way. This can be caused by a sports injury. Or it can happen from doing something as simple as stepping on an uneven surface. Ligaments are made of tough connective tissue. Normally, ligaments stretch a certain amount and then go back to their normal place. A sprain happens when a ligament is forced to stretch more than thenormal amount. A severe sprain can actually tear the ligaments. If you have a severe sprain, you may have felt or heard something like a pop when you were injured. Ankle sprains are given a grade depending on whether they are mild, moderate, or severe: Grade 1 sprain. A mild sprain with minor stretching and damage to the ligament. Grade 2 sprain. A moderate sprain where the ligament is partly torn. Grade 3 sprain. The most severe kind of sprain. The ligament is completely torn. Most sprains take about 4 to 6 weeks to heal. A severe sprain can take several months to recover. Your healthcare provider may order X-rays to be sure you don t have a fracture, or broken bone. The injured area will feel sore. Swelling and pain may make it hard to walk. You may need crutches if walking is painful. Or your provider may have you use a cast boot or air splint. This will dependon the grade of ankle sprain that you have. Home care For a Grade 1 sprain, use RICE (rest, ice, compression, and elevation): Rest your ankle. Don t walk on it. Ice should be used right away to help control swelling. Place an ice pack over the injured area for20 minutes. Do this every 3 to 6 hours for the first 24 to 48 hours. Keep using ice packs to ease pain and swelling as needed. To make an ice pack, put ice cubes in a plastic bag that seals at the top. Wrap the bag in a clean, thin towel or cloth. Never put ice or an ice pack directly on the skin. The ice pack can be put right on the cast, bandage, or splint. As the ice melts, be careful that thecast, bandage, or splint doesn t get wet. If you have a boot, open it to apply an ice pack, unless told otherwise by your provider. Compression devices help to control swelling. They also keep the ankle from moving and support yourinjured ankle. These devices include dressings, bandages, and wraps. Elevate or raise your ankle above the level of your heart when sitting or lying down. This is very important for the first 48 hours. Follow the RICE guidelines for a Grade 2 sprain. This type of sprain will take longer to heal. Yourprovider may have you wear a splint, cast, or brace to keep your ankle from moving. If you have a Grade 3 sprain, you are at risk for long-term ankle instability. In rare cases, surgery may be needed. Your provider may have you wear a short leg cast or a walking boot for 2 to 3 weeks. After 48 hours, it may be helpful to apply heat for 20 minutes several times a day. You can do thiswith a heating pad or warm compress. Or you may want to go back and forth between using ice and heat. Never apply heat directly to the skin. Always wrap the heating pad or warm compress in a clean, thin towel or cloth. You may use oxgq-mea-srietlo pain medicine (NSAIDS or nonsteroidal anti- inflammatory drugs) to control pain, unless another pain medicine was prescribed. Talk with your provider before using these medicines if you have chronic liver or kidney disease, or have ever had a stomach ulcer or gastrointestinal bleeding. Follow any rehabilitation exercises your provider gives you. These can help you be more flexible and improve your balance and coordination. This is helpful in preventing long-term ankle problems. Prevention To help prevent ankle sprains, it s important to have good strength, balance, and flexibility. Be sure to: Always warm up before you exercise or do something very active Be careful when walking or running on uneven or cracked surfaces Wear shoes that are in good condition and fit well Listen to your body s signals to slow down when you are in pain or tired Follow-up care Any X-rays you had today don t show any broken bones, breaks, or fractures. Sometimes fractures dont show up on the first X-ray. Bruises and sprains can sometimes hurt as much as a fracture. These injuries can take time to heal completely. If your symptoms don t get better or they get worse, talk with your healthcare provider. You may need a repeat X-ray. Follow up with your healthcare provider, or as advised. Check for any warning signs listed below. When to seek medical advice Call your healthcare provider right away if any of these occur: Fever of 100.4 F (38 C) or higher, or as directed by your healthcare provider Chills The injury doesn t seem to be healing The swelling comes back The cast or splint has a bad smell The plaster cast or splint gets wet or soft The fiberglass cast or splint gets wet and does not dry for 24 hours The pain or swelling increases, or redness appears Your toes become cold, blue, numb, or tingly The skin is discolored (looks blue, purple, or newsome), has blisters, or is irritated You re-injure your ankle [id number] [employer]. [address] [place] [address], [place] [address]. All rights reserved. This information is not intended as a substitute for professional medical care. Always follow yourhealthcare professional's instructions. Additional Information VACCINATE! IT SAVES LIVES! Members of the community who have not yet received the COVID-19 vaccine and would like to receive it can visit one of [facility] vaccine clinics. There are many vaccine clinic locations within the [facility]. For locations and available times, please visit www.gettheshot.coronavirus.[place].gov/. It is important to note that some COVID mobile vaccine clinics are held outdoors and may be canceled in rainy or stormy conditions. To learn more about pediatric vaccinations (ages 5-11), we invite you to visit the [employer] webpage. https://www.[facility].org/pages/9763-Yhzko-Vkfnafltcbo-Mmajkxbhoa-Pkkwx-Kqt stions.htmlTo learn more about the COVID-19 vaccine, we invite you to visit the CDC website for a list of frequently asked questions. https://www.cdc.gov/coronavirus/2019-ncov/vaccines/faq.html [facility] Patient Portal Access Instructions: Stay connected with your healthcare team and access your personal medical information anytime with the [facility] Patient Portal. If you would like a full copy of your medical records please contact the [facility] Medical Records Department Saturday through Saturday between 8a.m. and 4:30p.m. Please follow the directions below to access the portal: 1.Access the email account you provided upon registration to the hospital.2.Look for an invitation email from [facility].3.Open the email and access the invitation link: Accept Invitation to [facility].Fill in the required dan to create your account. Sign into [email or web address] with your username and password that you created in the above steps to stay up to date. You can then view a summary of results, a summary of your visits, and the ability to download your summaries to your computer or send the information securely to a physician. Remember that your healthcare information is confidential, so carefully consider who you will allow to register on the [facility] Patient Portal for access to your information. You can also access the [facility] Patient Portal on the [employer] alexia. Simply click on Health Records under [employer] and then click on the [employer] logo. HOW TO SAFELY DISPOSE OF PRESCRIPTION MEDICATIONS Please use one of the following methods to safely dispose of your unused medications. 1.Use a drug disposal kit: the drug disposal pouch allows you to safely discard your old and unuseddrugs. Ask your nurse to give you one when you are discharged.2.Visit a local take-back location: Many local pharmacies and police departments have programs that collect old and unwanted prescriptiondrugs. Call your local pharmacy or go to http://[employer].LiquidPractice/6B0Dd2b to find one close to you.3.Make use of household items: Use cat litter or old coffee grounds to dispose medications if other options arenot available. Mix your drugs with these household products, seal them in an airtight container andthrow it into the garbage. Call [facility]: [phone] to be sure your drugs can be disposed of in this way. Some medicines may require a different approach.4.Never flush your medications down the toilet. IF YOU HAVE BEEN PRESCRIBED AN OPIOIDS FOR PAIN If you have been prescribed an opioid (such as hydrocodone, oxycodone or morphine), it is critical to understand the possible side effects and risks of opioid pain medications. Even when taken as directed, opioids can have several side effects including: Tolerance, meaning you might need to take more of a medication for the same pain relief. Nausea, vomiting and/or constipation. Sleepiness, dizziness, dry mouth, confusion, depression or itching. Physical dependence, meaning you have withdrawal symptoms when a medication is stopped ? this can develop within a few days. KNOW YOUR RESPONSIBILITIES It is important to know exactly how much and how often to take the opioid pain medications you are prescribed. Never take opioids in higher amounts or more often than prescribed. Do not combine opioids with alcohol or other drugs that cause drowsiness, such as benzodiazepines, also known as benzos,including diazepam and alprazolam, muscle relaxants or sleep aids. Never sell or share prescriptionopioids. This is illegal. Store opioids in a secure place and out of reach of others (including children, family, friends and visitors). The last page(s) of this document has been signed and retained as a CHART COPY Signatures Patient Education Materials Ankle Sprain (Adult) Medication Leaflets My discharge plan and instructions have been reviewed and explained to me and I,OSMAN OMALLEYd my current condition and have read and understand these discharge instructions. I have received a written copy of the plan/instructions. If I have questions, I am aware that I should contact my doctor. 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 Additionally, the AP and oblique views demonstrate subchondral irregularity and concavity along the medial aspect of the talar articular surface. Otherwise, no fracture or dislocation. There is calcaneal spurring. No evidence significant joint effusion. Remaining articulations are intact. No aggressive osseous lesion. No radiographic evidence of soft tissue swelling. IMPRESSION: Anterior talar neck irregularity, which is uncertain in etiology. Findings could reflect remote trauma. Additionally, medial talar articular surface irregularity, could reflect osteochondritis desiccans. Given constellation of findings, MRI may be warranted. Interpreted by: Mirza Bowen DO Preliminary Report By: Mirza Bowen DO Electronically signed By iMrza Bowen DO Dictated Date: 03/28/2023 11:29:48 AM Prelim Date: 03/28/2023 11:37:19 AM Sign Date: 03/28/2023 11:37:19 AM [facility] [id number] Hospital Discharge instructions* Discharge Instructions* Beena Brown MD - 02/10/2022 7:21 AM EDT Thank you for trusting us with your care today. You may use tylenol or ibuprofen as needed for fever and pain. Please also make sure to take all of your antibiotics. Please keep wound clean and dry at all times. Please make an appointment with your primary care doctor for reevalaution in 1-4 days. Please return to the emergency department for any new concerning or worsening symptoms. * Attachments The following attachments cannot be sent through Care Everywhere. * Facial Laceration: Stitches (Nicaraguan) * Lacerations: Adhesives (Nicaraguan) documented in this encounterSUMMA Work Phone: [phone]) 179-104710-08-2022 Hospital Discharge instructions Patient Education 01/27/2022 04:55:29 Radiology-Incidental Lung Nodule Finding (03/2018)(CUSTOM) Incidental Lung Nodule Radiologic Finding Information Sheet An Incidental lung nodule is defined as a spot on the lung that is three centimeters in diameter orless. Lung nodules are quite common and are found in chest x-rays and CT scans. It is incidental because it is unrelated to the reason your caregiver prescribed the exam. With newer imaging tests and technologies, it is becoming more common to find small masses and tissue when looking for other things. These findings can sometimes be related to undiagnosed illness. Although many are not a cause for concern, it is always a good idea to talk to your caregiver about what was found. Types of Findings There are many types of masses/nodules and tissue abnormalities that can be detected during an imaging test. These types may include: Lesions - changes in tissue due to infections or trauma Cysts a mass filled with fluid, crystals, or some other substance Tumors non-cancerous solid mass Further Diagnosis Generally, very small tissue changes or masses will not require follow-up testing. Depending on thesize and appearance of the finding, your caregiver may recommend additional testing. Additional testing may also be recommended if you have certain risk factors or medical conditions that increase your risk of related problems. Testing Tests and exams may be a one-time screening or periodic follow-up. Periodic follow-up will help your caregiver determine whether the abnormality is growing or becoming a concern. Tests may include: Physical Examination Imaging tests, such as CT scan MRI and/or PET scan Bronchoscopy Biopsy Treatment The treatment of lung nodules varies widely depending upon the cause, whether they are related to infections, inflammation, cancer, or other conditions. Most benign lung nodules, especially those that are present and have not changed over a period of a few years, can be left alone. Treatment may include: Watchful waiting with periodic exams and testing Treatments to reduce the size of the abnormality Surgical or biopsy removal of the abnormality Additional treatments to address any underlying conditions Home Care Instructions See your caregiver for any follow-up examinations and testing as directed. Keep calm, your caregiver will let you know if this is a routine follow-up, or if there is cause for concern. Remember, early detection can be very beneficial to you. Follow your caregiver s aftercare instructions related tothe reason for you visit. 01/27/2022 04:54:41 Viral Syndrome (Adult) Viral Syndrome (Adult) A viral illness may cause a number of symptoms such as fever. Other symptoms depend on the part of the body that the virus affects. If it settles in your nose, throat, and lungs, it may cause cough, sore throat, congestion, runny nose, headache, earache and other ear symptoms, or shortness of breath. If it settles in your stomach and intestinal tract, it may cause nausea, vomiting, cramping, and diarrhea. Sometimes it causes generalized symptoms like aching all over, feeling tired, loss of energy, or loss of appetite. A viral illness usually lasts anywhere from several days to several weeks, but sometimes it lasts longer. In some cases, a more serious infection can look like a viral syndrome in the first few days of the illness. You may need another exam and additional tests to know the difference. Watch for thewarning signs listed below for when to seek medical advice. Home care Follow these guidelines for taking care of yourself at home: If symptoms are severe, rest at home for the first 2 to 3 days. Stay away from cigarette smoke - both your smoke and the smoke from others. You may use awiu-rvi-nllbedw acetaminophen or ibuprofen for fever, muscle aching, and headache, unless another medicine was prescribed for this. If you have chronic liver or kidney disease or ever had a stomach ulcer or gastrointestinal bleeding, talk with your healthcare provider before using these medicines. No one who is younger than 18 and ill with a fever should take aspirin. It may cause severe disease or . Your appetite may be poor, so a light diet is fine. Avoid dehydration by drinking 8 to 12, 8-ounce glasses of fluids each day. This may include water; orange juice; lemonade; apple, grape, and cranberry juice; clear fruit drinks; electrolyte replacement and sports drinks; and decaffeinated teas andcoffee. If you have been diagnosed with a kidney disease, ask your healthcare provider how much andwhat types of fluids you should drink to prevent dehydration. If you have kidney disease, drinking too much fluid can cause it build up in the your body and be dangerous to your health. Orgm-uho-omoihzf remedies won't shorten the length of the illness but may be helpful for symptoms such as cough, sore throat, nasal and sinus congestion, or diarrhea. Don't use decongestants if you have high blood pressure. Follow-up care Follow up with your healthcare provider if you do not improve over the next week. Call 911 Call 911 if any of the following occur: Convulsion Feeling weak, dizzy, or like you are going to faint Chest pain, or more than mild shortness of breath When to seek medical advice Call your healthcare provider right away if any of these occur: Cough with lots of colored sputum (mucus) or blood in your sputum Chest pain, shortness of breath, wheezing, or trouble breathing Severe headache; face, neck, or ear pain Severe, constant pain in the lower right side of your belly (abdominal) Continued vomiting (can t keep liquids down) Frequent diarrhea (more than 5 times a day); blood (red or black color) or mucus in diarrhea Feeling weak, dizzy, or like you are going to faint Extreme thirst Fever of 100.4 F (38 C) or higher, or as directed by your healthcare provider [phone] [employer]. [address] [place] [address]. All rights reserved. This information is not intended as a substitute for professional medical care. Always follow yourhealthcare professional's instructions. 01/27/2022 04:54:39 BRONCHITIS w/ Wheezing (Adult) Bronchitis With Wheezing (Viral Or Bacterial: Adult) Bronchitis is an infection of the air passages. It often occurs during the common cold and is usually caused by a virus. Symptoms include cough with mucus (phlegm) and low-grade fever. If there is a lot of inflammation, air flow is restricted. The air passages may also go into spasm,especially if you are an asthmatic. This causes wheezing and difficulty breathing even in persons who do not have asthma. Bronchitis usually lasts 7-14 days. The wheezing should improve with treatment during the first week. An inhaler is often prescribed to relax the air passages and stop wheezing. Antibiotics will be prescribed if your doctor thinks there is also a secondary bacterial infection. Home Care: If symptoms are severe, rest at home for the first 2-3 days. When resuming activity, don't let yourself become overly tired. Do not smoke and avoid exposure to the smoke of others. You may use acetaminophen (Tylenol) or ibuprofen (Motrin, Advil) to control fever, unless another medicine was prescribed. [NOTE: If you have chronic liver or kidney disease or ever had a stomach ulcer or GI bleeding, talk with your doctor before using these medicines.] (Aspirin should never be used in anyone under 18 years of age who is ill with a fever. It may cause severe liver damage.) Your appetite may be poor so a light diet is fine. Avoid dehydration by drinking 6-8 glasses of fluids per day (water, soft, drinks, juices, tea, soup, etc.). Extra fluids will help loosen secretionsin the lungs. Dwfp-rrv-jkenpgc cough medicines that contain dextromethorphan (such as Robitussin DM) and decongestants (Actifed or Sudafed) may help relieve cough and congestion. [NOTE: Do not use decongestants ifyou have high blood pressure.] If you were given an inhaler, use it exactly as directed. If you need to use it more often than prescribed, your condition may be worsening. Contact your doctor or this facility. If prescribed, finish all antibiotic medicine, even if you are feeling better after only a few days. Follow Up With Your Doctor Or As Directed If You Are Not Starting To Feel Better After Three Days. [NOTE: If you are age 65 or older, or if you have chronic asthma or COPD, we recommend a pneumococcal vaccination every five years and a yearly influenza vaccination (flu shot) every . Ask yourdoctor about this. If you had an x- ray or EKG (electrocardiogram), it will be reviewed by a specialist. You will be notified of any new findings that may affect your care.] Get Prompt Medical Attention If Any Of The Following Occur: Increased wheezing, shortness of breath or pain with breathing Fever of 100.4 F (38 C) oral or higher, not better with fever medication Coughing up blood or increasing amounts of colored sputum Weakness, drowsiness, headache, facial pain, ear pain or a stiff neck Lower leg swelling, tenderness, redness or pain [id number] [employer]. [address] [place] [address]. All rights reserved. This information is not intended as a substitute for professional medical care. Always follow yourhealthcare professional's instructions. Follow Up Care 01/27/2022 02:59:11 With:KEKE PINTO MD Address: [address] [place] [address]- When:2-4 days [facility] 10-08-2022 Note ORIGINAL EXAMINATION: TWO XRAY VIEWS OF THE CHEST 01/27/2022 3:45 am COMPARISON: Shoulder x-ray 01/09/2017 HISTORY: ORDERING SYSTEM PROVIDED HISTORY: Reason for Exam: cough FINDINGS: Patient reports not feeling well for 3 days. Lethargic, coughing, headache, unable to urinate all night. The cardiomediastinal silhouette is normal. There is an 8 mm nodular opacity which projects over the right lower lobe. It is possibly seen on the lateral view, suggesting that it is a right lower lobe pulmonary nodule rather than extrinsic artifact. Otherwise no focal consolidation, vascular congestion, pleural effusion or pneumothorax. IMPRESSION: 8 mm nodular opacity possibly represents a right lower lobe pulmonary nodule. Recommend further evaluation with a nonemergent outpatient CT of the chest. Otherwise no acute process. Preliminary Report was Dictated by a Resident Interpreted by: Miguel Angel Tucker MD Preliminary Report By: Zoraida Lacy Electronically signed By Miguel Angel Tucker MD Dictated Date: 01/27/2022 4:02:25 AM Prelim Date: 01/27/2022 4:07:47 AM Sign Date: 01/27/2022 5:12:37 AM Ordering Provider: NAZARIO ESQUIVEL [facility] [id number] Note Discharge Instructions Thank you for allowing [facility] to assist you with your healthcare needs. The following is importantdischarge information regarding your hospital visit. Diagnosis from Today's Visit Bronchitis Viral syndrome Dehydration Generalized body aches Headache Lethargic What to Do Next Instructions from Your Care Team Your x-ray showed a nodule on your lung. You should have a CAT scan of your lungs ordered by your primary doctor to better see this lesion to rule out serious problems like cancer. No qualifying data available. Post Acute Orders No qualifying data available. You Need to Schedule the Following Appointments Follow Up with KEKE PINTO MD When Within 2-4 days Where: [address] [place] [address]- Allergies Flexeril Ritalin traMADol Medications Please ask your primary doctor or pharmacist before taking any other medication not listed, including over the counter drugs, herbal medications, vitamins and or supplements as they may interact withyour home medications. What How Much When Why Instructions Last Dose New azithromycin (Azithromycin 5 Day Dose Pack 250 mgoral tablet) 1 dose by mouth Every day Bronchitis Viral syndrome Duration: 5 Days Printed Prescription New predniSONE (predniSONE 20 mg oral tablet) 2 tab(s) by mouth Every day Bronchitis Viral syndrome Duration: 5 Days Printed Prescription Please take this list to your next doctor s visit. Bring all medications you take, including over the counter medications, herbals and other supplements with you to your doctor s visit. Patients and families are reminded to discard old lists and to update any records with all medication providers or retail pharmacies. Education Materials Incidental Lung Nodule Radiologic Finding Information Sheet An Incidental lung nodule is defined as a spot on the lung that is three centimeters in diameter orless. Lung nodules are quite common and are found in chest x-rays and CT scans. It is incidental because it is unrelated to the reason your caregiver prescribed the exam. With newer imaging tests and technologies, it is becoming more common to find small masses and tissue when looking for other things. These findings can sometimes be related to undiagnosed illness. Although many are not a cause for concern, it is always a good idea to talk to your caregiver about what was found. Types of Findings There are many types of masses/nodules and tissue abnormalities that can be detected during an imaging test. These types may include: Lesions - changes in tissue due to infections or trauma Cysts a mass filled with fluid, crystals, or some other substance Tumors non-cancerous solid mass Further Diagnosis Generally, very small tissue changes or masses will not require follow-up testing. Depending on thesize and appearance of the finding, your caregiver may recommend additional testing. Additional testing may also be recommended if you have certain risk factors or medical conditions that increase your risk of related problems. Testing Tests and exams may be a one-time screening or periodic follow-up. Periodic follow-up will help your caregiver determine whether the abnormality is growing or becoming a concern. Tests may include: Physical Examination Imaging tests, such as CT scan MRI and/or PET scan Bronchoscopy Biopsy Treatment The treatment of lung nodules varies widely depending upon the cause, whether they are related to infections, inflammation, cancer, or other conditions. Most benign lung nodules, especially those that are present and have not changed over a period of a few years, can be left alone. Treatment may include: Watchful waiting with periodic exams and testing Treatments to reduce the size of the abnormality Surgical or biopsy removal of the abnormality Additional treatments to address any underlying conditions Home Care Instructions See your caregiver for any follow-up examinations and testing as directed. Keep calm, your caregiver will let you know if this is a routine follow-up, or if there is cause for concern. Remember, early detection can be very beneficial to you. Follow your caregiver s aftercare instructions related tothe reason for you visit. Viral Syndrome (Adult) A viral illness may cause a number of symptoms such as fever. Other symptoms depend on the part of the body that the virus affects. If it settles in your nose, throat, and lungs, it may cause cough, sore throat, congestion, runny nose, headache, earache and other ear symptoms, or shortness of breath. If it settles in your stomach and intestinal tract, it may cause nausea, vomiting, cramping, and diarrhea. Sometimes it causes generalized symptoms like aching all over, feeling tired, loss of energy, or loss of appetite. A viral illness usually lasts anywhere from several days to several weeks, but sometimes it lasts longer. In some cases, a more serious infection can look like a viral syndrome in the first few days of the illness. You may need another exam and additional tests to know the difference. Watch for thewarning signs listed below for when to seek medical advice. Home care Follow these guidelines for taking care of yourself at home: If symptoms are severe, rest at home for the first 2 to 3 days. Stay away from cigarette smoke - both your smoke and the smoke from others. You may use qsfe-ule-ejmxjph acetaminophen or ibuprofen for fever, muscle aching, and headache, unless another medicine was prescribed for this. If you have chronic liver or kidney disease or ever had a stomach ulcer or gastrointestinal bleeding, talk with your healthcare provider before using these medicines. No one who is younger than 18 and ill with a fever should take aspirin. It may cause severe disease or . Your appetite may be poor, so a light diet is fine. Avoid dehydration by drinking 8 to 12, 8-ounce glasses of fluids each day. This may include water; orange juice; lemonade; apple, grape, and cranberry juice; clear fruit drinks; electrolyte replacement and sports drinks; and decaffeinated teas andcoffee. If you have been diagnosed with a kidney disease, ask your healthcare provider how much andwhat types of fluids you should drink to prevent dehydration. If you have kidney disease, drinking too much fluid can cause it build up in the your body and be dangerous to your health. Naah-ndy-vwulhpy remedies won't shorten the length of the illness but may be helpful for symptoms such as cough, sore throat, nasal and sinus congestion, or diarrhea. Don't use decongestants if you have high blood pressure. Follow-up care Follow up with your healthcare provider if you do not improve over the next week. Call 911 Call 911 if any of the following occur: Convulsion Feeling weak, dizzy, or like you are going to faint Chest pain, or more than mild shortness of breath When to seek medical advice Call your healthcare provider right away if any of these occur: Cough with lots of colored sputum (mucus) or blood in your sputum Chest pain, shortness of breath, wheezing, or trouble breathing Severe headache; face, neck, or ear pain Severe, constant pain in the lower right side of your belly (abdominal) Continued vomiting (can t keep liquids down) Frequent diarrhea (more than 5 times a day); blood (red or black color) or mucus in diarrhea Feeling weak, dizzy, or like you are going to faint Extreme thirst Fever of 100.4 F (38 C) or higher, or as directed by your healthcare provider [phone] [employer]. [address] [place] [address], [place] [address]. All rights reserved. This information is not intended as a substitute for professional medical care. Always follow yourhealthcare professional's instructions. Bronchitis With Wheezing (Viral Or Bacterial: Adult) Bronchitis is an infection of the air passages. It often occurs during the common cold and is usually caused by a virus. Symptoms include cough with mucus (phlegm) and low-grade fever. If there is a lot of inflammation, air flow is restricted. The air passages may also go into spasm,especially if you are an asthmatic. This causes wheezing and difficulty breathing even in persons who do not have asthma. Bronchitis usually lasts 7-14 days. The wheezing should improve with treatment during the first week. An inhaler is often prescribed to relax the air passages and stop wheezing. Antibiotics will be prescribed if your doctor thinks there is also a secondary bacterial infection. Home Care: If symptoms are severe, rest at home for the first 2-3 days. When resuming activity, don't let yourself become overly tired. Do not smoke and avoid exposure to the smoke of others. You may use acetaminophen (Tylenol) or ibuprofen (Motrin, Advil) to control fever, unless another medicine was prescribed. [NOTE: If you have chronic liver or kidney disease or ever had a stomach ulcer or GI bleeding, talk with your doctor before using these medicines.] (Aspirin should never be used in anyone under 18 years of age who is ill with a fever. It may cause severe liver damage.) Your appetite may be poor so a light diet is fine. Avoid dehydration by drinking 6-8 glasses of fluids per day (water, soft, drinks, juices, tea, soup, etc.). Extra fluids will help loosen secretionsin the lungs. Uoig-sww-roivzvm cough medicines that contain dextromethorphan (such as Robitussin DM) and decongestants (Actifed or Sudafed) may help relieve cough and congestion. [NOTE: Do not use decongestants ifyou have high blood pressure.] If you were given an inhaler, use it exactly as directed. If you need to use it more often than prescribed, your condition may be worsening. Contact your doctor or this facility. If prescribed, finish all antibiotic medicine, even if you are feeling better after only a few days. Follow Up With Your Doctor Or As Directed If You Are Not Starting To Feel Better After Three Days. [NOTE: If you are age 65 or older, or if you have chronic asthma or COPD, we recommend a pneumococcal vaccination every five years and a yearly influenza vaccination (flu shot) every . Ask yourdoctor about this. If you had an x- ray or EKG (electrocardiogram), it will be reviewed by a specialist. You will be notified of any new findings that may affect your care.] Get Prompt Medical Attention If Any Of The Following Occur: Increased wheezing, shortness of breath or pain with breathing Fever of 100.4 F (38 C) oral or higher, not better with fever medication Coughing up blood or increasing amounts of colored sputum Weakness, drowsiness, headache, facial pain, ear pain or a stiff neck Lower leg swelling, tenderness, redness or pain 7716-6293 [employer]. [address] [place] [address]. All rights reserved. This information is not intended as a substitute for professional medical care. Always follow yourhealthcare professional's instructions. Additional Information VACCINATE! IT SAVES LIVES! Members of the community who have not yet received the COVID-19 vaccine and would like to receive it can visit one of [facility] vaccine clinics. There are many vaccine clinic locations within the [facility]. For locations and available times, please visit [email or web address]. It is important to note that some COVID mobile vaccine clinics are held outdoors and may be canceled in rainy orstormy conditions. To learn more about pediatric vaccinations (ages 5-11), we invite you to visit the [facility] webpage. [email or web address] learn more about the COVID-19 vaccine, we invite you to visit the [employer] website for a list of frequently asked questions. [email or web address] _[email or web address].pdf [facility] Patient Portal Access Instructions: Stay connected with your healthcare team and access your personal medical information anytime with the [facility] Patient Portal. If you would like a full copy of your medical records please contact the [facility] Medical Records Department Saturday through Saturday between 8a.m. and 4:30p.m. Please follow the directions below to access the portal: 1.Access the email account you provided upon registration to the [facility].2.Look for an invitation email from [facility].3.Open the email and access the invitation link: Accept Invitation to [facility].Fill in the required dan to create your account. Sign into [email or web address] Blackbox with your username and password that you created in the above steps to stay up to date. You can then view a summary of results, a summary of your visits, and the ability to download your summaries to your computer or send the information securely to a physician. Remember that your healthcare information is confidential, so carefully consider who you will allow to register on the [facility] Patient Portal for access to your information. You can also access the [facility] Patient Portal on the [employer] alexia. Simply click on Health Records under [employer] and then click on the [employer] logo. HOW TO SAFELY DISPOSE OF PRESCRIPTION MEDICATIONS Please use one of the following methods to safely dispose of your unused medications. 1.Use a drug disposal kit: the drug disposal pouch allows you to safely discard your old and unuseddrugs. Ask your nurse to give you one when you are discharged.2.Visit a local take-back location: Many local pharmacies and police departments have programs that collect old and unwanted prescriptiondrugs. Call your local pharmacy or go to http://bit.LiquidPractice/2I8Iu0g to find one close to you.3.Make use of household items: Use cat litter or old coffee grounds to dispose medications if other options arenot available. Mix your drugs with these household products, seal them in an airtight container andthrow it into the garbage. Call [facility]: [phone] to be sure your drugs can be disposed of in this way. Some medicines may require a different approach.4.Never flush your medications down the toilet. IF YOU HAVE BEEN PRESCRIBED AN OPIOIDS FOR PAIN If you have been prescribed an opioid (such as hydrocodone, oxycodone or morphine), it is critical to understand the possible side effects and risks of opioid pain medications. Even when taken as directed, opioids can have several side effects including: Tolerance, meaning you might need to take more of a medication for the same pain relief. Nausea, vomiting and/or constipation. Sleepiness, dizziness, dry mouth, confusion, depression or itching. Physical dependence, meaning you have withdrawal symptoms when a medication is stopped ? this can develop within a few days. KNOW YOUR RESPONSIBILITIES It is important to know exactly how much and how often to take the opioid pain medications you are prescribed. Never take opioids in higher amounts or more often than prescribed. Do not combine opioids with alcohol or other drugs that cause drowsiness, such as benzodiazepines, also known as benzos,including diazepam and alprazolam, muscle relaxants or sleep aids. Never sell or share prescriptionopioids. This is illegal. Store opioids in a secure place and out of reach of others (including children, family, friends and visitors). The last page(s) of this document has been signed and retained as a CHART COPY Signatures Patient Education Materials Radiology-Incidental Lung Nodule Finding (03/2018)(CUSTOM) Viral Syndrome (Adult) BRONCHITIS w/ Wheezing (Adult) Medication Leaflets My discharge plan and instructions have been reviewed and explained to me and IHANNAH ALBERT Eunderstand my current condition and have read and understand these discharge instructions. I have received a written copy of the plan/instructions. If I have questions, I am aware that I should contact my doctor. 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 Lethargic, coughing, headache, unable to urinate all night. The cardiomediastinal silhouette is normal. There is an 8 mm nodular opacity which projects over the right lower lobe. It is possibly seen on the lateral view, suggesting that it is a right lower lobe pulmonary nodule rather than extrinsic artifact. Otherwise no focal consolidation, vascular congestion, pleural effusion or pneumothorax. IMPRESSION: 8 mm nodular opacity possibly represents a right lower lobe pulmonary nodule. Recommend further evaluation with a nonemergent outpatient CT of the chest. Otherwise no acute process. Preliminary Report was Dictated by a Resident Interpreted by: Miguel Angel Tucker MD Preliminary Report By: Zoraida Lacy Electronically signed By Miguel Angel Tucker MD Dictated Date: 01/27/2022 4:02:25 AM Prelim Date: 01/27/2022 4:07:47 AM Sign Date: 01/27/2022 5:12:37 AM Ordering Provider: [facility]06-30-2022 Hospital Discharge instructions Patient Education 10/19/2021 17:29:42 Sunburn (Sun Poisoning) Sunburn (Sun Poisoning) Like most people, you may have been sunburned at least once. If so, you know the symptoms red, hot,painful skin. Most sunburns are minor and go away in a few days. But sunburns can be serious. It's important to know when to get medical care. Risk factors You are more likely to burn in the sun if you: Have very fair skin. Are exposed to sunlight reflected from snow, sand, or water. Live near the equator or at high altitudes. Are taking certain antibiotics, control pills, or the herb Marsing's wort. Check with your healthcare provider or your pharmacist about other medicines that can increase your sun sensitivity. How to treat a sunburn Sunburn symptoms may not appear until 6 to 12 hours after exposure. Mild redness and swelling can often be treated at home. Cool baths or cool, wet cloths (compresses) can help. Using aloe vera lotion can help soothe the skin. Ibuprofen can help relieve pain, swelling, and inflammation. When to call your healthcare provider Call your healthcare provider right away if you have any of these symptoms: Intense pain Fever and chills Severe blisters Headache, confusion, or fainting Nausea or vomiting Severe fluid loss (dehydration) The treatment you receive will depend on the severity of the sunburn: You may be told to drink plenty of fluids and apply cool compresses or soak in cool water. You may also be given a cream to prevent infection. For severe adame, you may be given pain medicine. You may be given an oral steroid medicine to take. Fluids and cool water soaks help relieve symptoms. In extreme cases, you may be admitted to a hospital burn unit. Long-term sun exposure may lead to wrinkling and skin cancer. To protect your skin: Stay out of the sun between 10 a.m. and 4 p.m., when rays are strongest. Wear a wide-brimmed hat and long sleeves in the sun. Use a sunscreen even on cloudy days. Make sure it is at least SPF 30, broad spectrum, and water resistant. Reapply every few hours and after swimming. 5911-4735 [employer]. [address] [place] [address]. All rights reserved. This information is not intended as a substitute for professional medical care. Always follow yourhealthcare professional's instructions. 10/19/2021 17:29:39 Burn, Second-Degree Second-Degree Burn A burn occurs when skin is exposed to too much heat, sun, or harsh chemicals. A second-degree burn (partial-thickness burn) is deeper than a first-degree burn (superficial burn). It usually causes a blister to form. The blister may remain intact and gradually go away on its own. Or it may break open. The goal of treatment is to relieve pain and stop infection while the burn heals. Home care Use pain medicine as directed. If no pain medicine was prescribed, you may use weoe-pea-cegwtiz medicine to control pain. If you have chronic liver or kidney disease, talk with your healthcare provider before using acetaminophen or ibuprofen. Also talk with your provider if you've had a stomach ulcer or GI bleeding. General care On the first day, you may put a cool compress on the wound to ease pain. A cool compress is a smalltowel soaked in cool water. If you were sent home with the blister intact, don't break the blister. The risk for infection is greater if the blister breaks. If a bandage was applied, change it once a day, unless told otherwise.If the bandage becomes wet or soiled, change it as soon as you can. Sometimes an infection may occur even with proper treatment. Check the burn daily for the signs of infection listed below. Eat more calories and protein until your wound is healed. Wear a hat, sunscreen, and long sleeves while in the sun to protect the skin. Don't pick or scratch at the wound. Use eype-jfm-cegkube medicines like diphenhydramine for itching. Avoid tight-fitting clothes. To change a bandage: Wash your hands. Take off the old bandage. If the bandage sticks, soak it off under warm running water. Once the bandage is off, gently wash the burn area with mild soap and warm water to remove any cream, ointment, ooze, or scab. You may do this in a sink, under a tub faucet, or in the shower. Rinse off the soap and gently pat dry with a clean towel. Check for signs of infection listed below. Put any prescribed antibiotic cream or ointment on the wound. Cover the burn with nonstick gauze. Then wrap it with the bandage material. Follow-up care Follow up with your healthcare provider, or as advised. When to seek medical advice Call your healthcare provider right away if you have any of these signs of infection: Fever of 100.4 F (38 C) or higher, or as directed by your healthcare provider Pain that gets worse Redness or swelling that gets worse Pus comes from the burn Red streaks in your skin coming from the burn Wound doesn't appear to be healing Nausea or vomiting [id number] [employer]. [address] [place] [address], [place] [address]. All rights reserved. This information is not intended as a substitute for professional medical care. Always follow yourhealthcare professional's instructions. Follow Up Care 10/19/2021 17:08:03 With:KEKE PINTO MD [facility] [place] [address]- When:2-4 days [facility] 06-30-2022 Note Discharge Instructions Thank you for allowing [facility] to assist you with your healthcare needs. The following is importantdischarge information regarding your hospital visit. Diagnosis from Today's Visit Sunburn What to Do Next Instructions from Your Care Team Discharge Return to Work, School, or Sports (Return to Work, School, or Sports) - Ordered -- May return to: work, please excuse from work, 10/19/21 17:29:00 EDT Post Acute Orders No qualifying data available. You Need to Schedule the Following Appointments Follow Up with KEKE PINTO MD When Within 2-4 days [address]: [address] [facility] [place] [address]- Allergies Flexeril Ritalin traMADol Medications Please ask your primary doctor or pharmacist before taking any other medication not listed, including over the counter drugs, herbal medications, vitamins and or supplements as they may interact withyour home medications. What How Much When Instructions Last Dose New bacitracin topical (bacitracin topical ointment) 1 Applicatorful Topical Four (4) times a day Duration: 7 Days Printed Prescription Please take this list to your next doctor s visit. Bring all medications you take, including over the counter medications, herbals and other supplements with you to your doctor s visit. Patients and families are reminded to discard old lists and to update any records with all medication providers or retail pharmacies. Medication Leaflets bacitracin topical (BAS i TRAY sin TOP i barrie) Baciguent What is the most important information I should know about bacitracin? Follow all directions on your medicine label and package. Tell each of your healthcare providers about all your medical conditions, allergies, and all medicines you use. What is bacitracin? Bacitracin is an antibiotic that fights bacteria. Bacitracin topical (for the skin) is used to prevent infection in minor cuts, scrapes, and adame. Bacitracin may also be used for purposes not listed in this medication guide. What should I discuss with my health care provider before using bacitracin? You should not use this medicine if you are allergic to bacitracin, mineral oil, or petroleum jelly. Do not use bacitracin topical to treat animal bites, puncture wounds, deep skin wounds, or severe adame. Ask a doctor or pharmacist if it is safe for you to use this medicine if you are not sure. Bacitracin is not expected to harm an unborn baby. It is not known whether bacitracin passes into breast milk or if it could harm a nursing baby. Ask a doctor or pharmacist if it is safe for you to use this medicine if you are or breast-feeding. How should I use bacitracin? Use exactly as directed on the label, or as prescribed by your doctor. Do not use in larger or smaller amounts or for longer than recommended. Clean the skin area before applying bacitracin topical. You may apply bacitracin to the affected area 1 to 3 times per day. Apply only enough to cover the area you are treating. Do not use this medication over large areas of skin. You may cover the treated skin with a bandage. Do not use bacitracin for longer than 7 days in a row. Call your doctor if your symptoms do not improve after 7 days of treatment, or if you develop a skin rash. Store at room temperature away from moisture and heat. Do not freeze. What happens if I miss a dose? Since bacitracin topical is when needed, you are not likely to miss a dose. What happens if I overdose? Seek emergency medical attention or call the Poison Help line at . What should I avoid while using bacitracin? Bacitracin topical is for use only on the skin. Avoid getting this medication in your eyes, nose, mouth, rectum, or vagina. If this does happen, rinse with water. What are the possible side effects of bacitracin? Get emergency medical help if you have signs of an allergic reaction: hives; difficult breathing; swelling of your face, lips, tongue, or throat. Less serious side effects are more likely, and you may have none at all. This is not a complete list of side effects and others may occur. Call your doctor for medical advice about side effects. You may report side effects to FDA at 1-342-QFX-6347. What other drugs will affect bacitracin? It is not likely that other drugs you take orally or inject will have an effect on topically applied bacitracin. But many drugs can interact with each other. Tell each of your health care providers about all medicines you use, including prescription and hjwk-cjy-hqexvpm medicines, vitamins, and herbal products. Where can I get more information? Your pharmacist can provide more information about bacitracin topical. Remember, keep this and all other medicines out of the reach of children, never share your medicines with others, and use this medication only for the indication prescribed. Every effort has been made to ensure that the information provided by [employer]. ('[employer]') is accurate, up-to-date, and complete, but no guarantee is made to that effect. Drug information contained herein may be time sensitive. [employer] information has been compiled for use by healthcare practitioners and consumers in the [place] and therefore [employer] does not warrant that uses outside of the [place] are appropriate, unless specifically indicated otherwise. [employer] drug information does not endorse drugs, diagnose patients or recommend therapy. [employer] drug information isan informational resource designed to assist licensed healthcare practitioners in caring for their p atients and/or to serve consumers viewing this service as a supplement to, and not a substitute for, the expertise, skill, knowledge and judgment of healthcare practitioners. The absence of a warningfor a given drug or drug combination in no way should be construed to indicate that the drug or drug combination is safe, effective or appropriate for any given patient. [employer] does not assume any responsibility for any aspect of healthcare administered with the aid of information [employer] provides. The information contained herein is not intended to cover all possible uses, directions, precautions, warnings, drug interactions, allergic reactions, or adverse effects. If you have questions about the drugs you are taking, check with your doctor, nurse or pharmacist. Copyright 9305-0692 [employer]. Version: 3.01. Revision Date: 01/19/2015. Education Materials Sunburn (Sun Poisoning) Like most people, you may have been sunburned at least once. If so, you know the symptoms red, hot,painful skin. Most sunburns are minor and go away in a few days. But sunburns can be serious. It's important to know when to get medical care. Risk factors You are more likely to burn in the sun if you: Have very fair skin. Are exposed to sunlight reflected from snow, sand, or water. Live near the equator or at high altitudes. Are taking certain antibiotics, control pills, or the herb Jose Alberto's wort. Check with your healthcare provider or your pharmacist about other medicines that can increase your sun sensitivity. How to treat a sunburn Sunburn symptoms may not appear until 6 to 12 hours after exposure. Mild redness and swelling can often be treated at home. Cool baths or cool, wet cloths (compresses) can help. Using aloe vera lotion can help soothe the skin. Ibuprofen can help relieve pain, swelling, and inflammation. When to call your healthcare provider Call your healthcare provider right away if you have any of these symptoms: Intense pain Fever and chills Severe blisters Headache, confusion, or fainting Nausea or vomiting Severe fluid loss (dehydration) The treatment you receive will depend on the severity of the sunburn: You may be told to drink plenty of fluids and apply cool compresses or soak in cool water. You may also be given a cream to prevent infection. For severe adame, you may be given pain medicine. You may be given an oral steroid medicine to take. Fluids and cool water soaks help relieve symptoms. In extreme cases, you may be admitted to a hospital burn unit. Long-term sun exposure may lead to wrinkling and skin cancer. To protect your skin: Stay out of the sun between 10 a.m. and 4 p.m., when rays are strongest. Wear a wide-brimmed hat and long sleeves in the sun. Use a sunscreen even on cloudy days. Make sure it is at least SPF 30, broad spectrum, and water resistant. Reapply every few hours and after swimming. 1761-6727 [employer]. [address] [place] [address], [place] [address]. All rights reserved. This information is not intended as a substitute for professional medical care. Always follow yourhealthcare professional's instructions. Second-Degree Burn A burn occurs when skin is exposed to too much heat, sun, or harsh chemicals. A second-degree burn (partial-thickness burn) is deeper than a first-degree burn (superficial burn). It usually causes a blister to form. The blister may remain intact and gradually go away on its own. Or it may break open. The goal of treatment is to relieve pain and stop infection while the burn heals. Home care Use pain medicine as directed. If no pain medicine was prescribed, you may use twib-jyu-baclpge medicine to control pain. If you have chronic liver or kidney disease, talk with your healthcare provider before using acetaminophen or ibuprofen. Also talk with your provider if you've had a stomach ulcer or GI bleeding. General care On the first day, you may put a cool compress on the wound to ease pain. A cool compress is a smalltowel soaked in cool water. If you were sent home with the blister intact, don't break the blister. The risk for infection is greater if the blister breaks. If a bandage was applied, change it once a day, unless told otherwise.If the bandage becomes wet or soiled, change it as soon as you can. Sometimes an infection may occur even with proper treatment. Check the burn daily for the signs of infection listed below. Eat more calories and protein until your wound is healed. Wear a hat, sunscreen, and long sleeves while in the sun to protect the skin. Don't pick or scratch at the wound. Use nroj-uml-ruceths medicines like diphenhydramine for itching. Avoid tight-fitting clothes. To change a bandage: Wash your hands. Take off the old bandage. If the bandage sticks, soak it off under warm running water. Once the bandage is off, gently wash the burn area with mild soap and warm water to remove any cream, ointment, ooze, or scab. You may do this in a sink, under a tub faucet, or in the shower. Rinse off the soap and gently pat dry with a clean towel. Check for signs of infection listed below. Put any prescribed antibiotic cream or ointment on the wound. Cover the burn with nonstick gauze. Then wrap it with the bandage material. Follow-up care Follow up with your healthcare provider, or as advised. When to seek medical advice Call your healthcare provider right away if you have any of these signs of infection: Fever of 100.4 F (38 C) or higher, or as directed by your healthcare provider Pain that gets worse Redness or swelling that gets worse Pus comes from the burn Red streaks in your skin coming from the burn Wound doesn't appear to be healing Nausea or vomiting 0511-7822 [employer]. [address] [place] [address], [place] [address]. All rights reserved. This information is not intended as a substitute for professional medical care. Always follow yourhealthcare professional's instructions. Additional Information VACCINATE! IT SAVES LIVES! Members of the community who have not yet received the COVID-19 vaccine and would like to receive it can visit one of [facility] vaccine clinics. There are many vaccine clinic locations within the [facility]. For locations and available times, please visit [email or web address]. It is important to note that some COVID mobile vaccine clinics are held outdoors and may be canceled in rainy orstormy conditions. To learn more about pediatric vaccinations (ages 5-11), we invite you to visit the [employer] [facility] webpage. [email or web address] learn more about the COVID-19 vaccine, we invite you to visit the [employer] website for a list of frequently asked questions. [email or web address] [facility] Patient Portal Access Instructions: Stay connected with your healthcare team and access your personal medical information anytime with the [facility] Patient Portal. If you would like a full copy of your medical records please contact the [facility] Medical Records Department Saturday through Saturday between 8a.m. and 4:30p.m. Please follow the directions below to access the portal: 1.Access the email account you provided upon registration to the hospital.2.Look for an invitation email from [facility].3.Open the email and access the invitation link: Accept Invitation to [facility]4.Fill in the required dan to create your account. Sign into [email or web address] with your username and password that you created in the above steps to stay up to date. You can then view a summary of results, a summary of your visits, and the ability to download your summaries to your computer or send the information securely to a physician. Remember that your healthcare information is confidential, so carefully consider who you will allow to register on the [employer] [facility] Patient Portal for access to your information. You can also access the [facility] Patient Portal on the [employer]. Simply click on Health Records under [employer] and then click on the [employer] logo. HOW TO SAFELY DISPOSE OF PRESCRIPTION MEDICATIONS Please use one of the following methods to safely dispose of your unused medications. 1.Use a drug disposal kit: the drug disposal pouch allows you to safely discard your old and unuseddrugs. Ask your nurse to give you one when you are discharged.2.Visit a local take-back location: Many local pharmacies and police departments have programs that collect old and unwanted prescriptiondrugs. Call your local pharmacy or go to http://[employer].LiquidPractice/9X7Sg2m to find one close to you.3.Make use of household items: Use cat litter or old coffee grounds to dispose medications if other options arenot available. Mix your drugs with these household products, seal them in an airtight container andthrow it into the garbage. Call [facility]: [phone] to be sure your drugs can be disposed of in this way. Some medicines may require a different approach.4.Never flush your medications down the toilet. IF YOU HAVE BEEN PRESCRIBED AN OPIOIDS FOR PAIN If you have been prescribed an opioid (such as hydrocodone, oxycodone or morphine), it is critical to understand the possible side effects and risks of opioid pain medications. Even when taken as directed, opioids can have several side effects including: Tolerance, meaning you might need to take more of a medication for the same pain relief. Nausea, vomiting and/or constipation. Sleepiness, dizziness, dry mouth, confusion, depression or itching. Physical dependence, meaning you have withdrawal symptoms when a medication is stopped ? this can develop within a few days. KNOW YOUR RESPONSIBILITIES It is important to know exactly how much and how often to take the opioid pain medications you are prescribed. Never take opioids in higher amounts or more often than prescribed. Do not combine opioids with alcohol or other drugs that cause drowsiness, such as benzodiazepines, also known as benzos,including diazepam and alprazolam, muscle relaxants or sleep aids. Never sell or share prescriptionopioids. This is illegal. Store opioids in a secure place and out of reach of others (including children, family, friends and visitors). The last page(s) of this document has been signed and retained as a CHART COPY Signatures Patient Education Materials Sunburn (Sun Poisoning) Burn, Second-Degree Medication Leaflets bacitracin topical My discharge plan and instructions have been reviewed and explained to me and I,OSMAN OMALLEYd my current condition and have read and understand these discharge instructions. I have received a written copy of the plan/instructions. If I have questions, I am aware that I should contact my doctor. 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 These can include: A sprain of the ligaments that support the joint An injury to the cartilage lining of the joint Arthritis from mmhr-brn-bljx or inflammation There are other causes as well. There may also be swelling, reduced movement of the knee joint, andpain with walking. A definite diagnosis will still need to be made. If your symptoms don't improve,further follow-up and testing may be needed. Home care Stay off the injured leg as much as possible until pain improves. Apply an ice pack over the injured area for 15 to 20 minutes every 3 to 6 hours. You should do thisfor the first 24 to 48 hours. You can make an ice pack by filling a plastic bag that seals at the top with ice cubes and then wrapping it with a thin towel. Continue to use ice packs for relief of pain and swelling as needed. As the ice melts, be careful not to get your wrap, splint, or cast wet. After 48 hours, apply heat (warm shower or warm bath) for 15 to 20 minutes several times a day, or alternate ice and heat. If you have to wear a pmoo-ffq-cytl knee brace, you can open it to apply the ice pack, or heat, directly to the knee. Never put ice directly on the skin. Always wrap the ice in atowel or other type of cloth. You may use ifso-sbm-cwqbocx pain medicine to control pain, unless another pain medicine was prescribed. If you have chronic liver or kidney disease or ever had a stomach ulcer or gastrointestinal bleeding, talk with your healthcare provider before using these medicines. If crutches or a walker have been recommended, don't put weight on the injured leg until you can doso without pain. Check with your healthcare provider before returning to sports or full work duties. If you have a strm-xnw-ploz knee brace, you can remove it to bathe and sleep, unless told otherwise. Follow-up care Follow up with your healthcare provider as advised. This is usually within 1 to 2 weeks. If X-rays were taken, you will be told of any new findings that may affect your care Call 911 Call 911 if you have: Shortness of breath Chest pain When to seek medical advice Call your healthcare provider right away if any of these occur: Toes or foot becomes swollen, cold, blue, numb, or tingly Pain or swelling spreads over the knee or calf Warmth or redness appears over the knee or calf Other joints become painful Rash appears Fever of 100.4 F (38 C) or higher, or as directed by your healthcare provider Darrin [phone] [employer]. [address] [place] [address]. All rights reserved. This information is not intended as a substitute for professional medical care. Always follow yourhealthcare professional's instructions. Follow Up Care 07/18/2021 09:32:32 With:DO VAIBHAV BILLINGSLEY DO Address: [address] [place] [address] [address] [place] [address] When:2-4 days [facility] Evaluation + Plan note No data available for this section [facility] Evaluation note* Diagnosis Facial laceration, initial encounter- Primary documented in this encounter [facility] Work Phone: Progress note No data available for this section [facility] Summary Purpose Family History No Family History Records Found No data available for this section No data available for this section No Family History Records Found No data available for this section No Family History Records Found Advance Directives No Advanced Directives Records FoundNo Advanced Directives Records FoundNo Advanced Directives Records Found Additional Source Comments Care Team (unrecognized sect ion and content) 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 Relationship Specialty Start Date End Date Keke Pinto MD [address] [place] [address] PCP - General Family Medicine 11/07/20 Care Team (unrecognized sect ion and content) Care Team Personnel Name: KEKE PINTO MD Service: Family Practice Member Role: Primary Care Physician Address: Address: [address] [place] [address] [facility] Address: [address] Care Team Personnel Name: KEKE PINTO MD Service: Family Practice Member Role: Primary Care Physician Address: Address: [address] [place] [address] [facility] Address: [address] Reason for Visit (unrecogniz ed section and content) Reason Comments Fall Laceration Pt tripped and fell hitting head on the toilet, no LOC Ordered Prescriptions (unrec ognized section and content) Prescription Sig Dispensed Refills Start Date End Da te cephALEXin (KEFLEX) 500 MG capsule Take 1 capsule by mouth 3 times daily for 5 days 15 capsule 0 02/10/2022 02/15/2022 Scheduled Active and Recently Administ ered Medications (unrecognized section and content) Medication Order 02/08/2022 02/09/2022 02/10/2022 bacitracin ointment (COMPLETED) Topical, ONCE, On 02/10/22 at 0724, For 1 dose, Apply to facial laceration with sutures. Do not apply to site with dermabond. 0744 (Given - Provid er: Marlyn Calloway RN - Comment: Forehead) cephALEXin (KEFLEX) capsule 500 mg (COMPLETED) 500 mg, Oral, ONCE, 1 dose, On 02/10/22 at 0719, Antimicrobial Indications: Skin and Soft Tissue Infection 0744 (Given - Provid er: Marlyn Calloway RN) lidocaine-EPINEPHrine 1 %-[id number] injection 20 mL (COMPLETED) 20 mL, IntraDERmal, ONCE, 1 dose, On 02/10/22 at 0528 0641 (Given - Provid er: Christine Graf RN) (unrecognized sect ion and content) No Status Records FoundNo Status Records FoundNo Status Records Found INFORMATION SOURCE (unrecogn ized section and content) DATE CREATED AUTHOR 02/13/2022 [facility] DATE CREATED AUTHOR AUTHOR'S ORGANIZ ATION 11/10/2023 [facility] ([place]) DATE CREATED AUTHOR AUTHOR'S ORGANIZ ATION 10/17/2024 [facility] FOR RECORDS PERTAINING TO PATIENTS WHO ARE OR HAVE BEEN ENROLLED IN A CHEMICAL DEPENDENCY/SUBSTANCEABUSE PROGRAM, SOME INFORMATION MAY BE OMITTED. This clinical summary was aggregated from multiple sources. Caution should be exercised in using it in the provision of clinical care. This summary normalizes information from multiple sources, and as a consequence, information in this document may materially change the coding, format and clinical context of patient data. In addition, data may be omitted in some cases. CLINICAL DECISIONS SHOULD BE BASED ON THE PRIMARY CLINICAL RECORDS. [facility]. provides no warranty or guarantee of the accuracy or completeness of information in this document.
[2024-12-13 09:49] LABS: Alcohol, Blood (Medical)-Serum < 10.1 mg/dL (<=10.0)
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
--- NOTE | 2024-12-13 10:09 | ED.RN ---
sakina from crisis at bedside.
[2024-12-13 10:43] VITALS: BP 139/93; PULSE 78; RESP 16; TEMP 36.8; O2SAT 99
--- NOTE | 2024-12-13 10:44 | ED.RN ---
developing safety plan with tyshawn from crisis at this time.
== END 2024-12-13 12:06 | disposition home or self-care (01) ==
PROVIDERS: Emergency Provider Emergency Medicine; Visit Provider Emergency Medicine
DX: F32.A Depression, unspecified (principal)
CPT/HCPCS: 36415; 82077; 99284

== ENCOUNTER 2024-12-13 16:04 | Inpatient (IN) | payer SELFPAY ==
[2024-12-13 16:05] VITALS: BP 133/93; PULSE 106; RESP 16; TEMP 36.7; O2SAT 99; BMI 24.7
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
--- OUTSIDE RECORDS SUMMARY | 2024-12-13 17:04 | XMS RPT_ITS | CCD ---
Author Organization [facility] Care Team Providers Care Ski Base Trimmer Name Role Phone MILLIE POP, DR DAVIES Primary Care Physician Keke Pinto MD Primary Care Provider Shea Vogt Primary Care Unavailable PROVIDER, UNKNOWN Referring Unavailable Beena Garcia Attending Todd PINTO MD, DR DAVIES Primary Care Cecilia VILLARREAL MD, VITALY Miller Attending Unavail rosita PINTO MD, DR DAVIES Primary Care Unavailantionette CASTILLO MD, DR DEEPTI Henriquez Attending Pascual HARRIS MD, DIEGO Attending Todd PINTO MD, DR DAVIES Primary Care Unavailantionette Main MD, Dr. Castro Emergency Provider Care Physician, No Primary Primary Care Provider Unavailable Allergies Allergy Classification Reported Allergen(s) Allergy Type Date of Onset Reaction(s) Facility (8 sources) cyclobenzaprine; Translations: [cyclobenzaprine] Drug Allergy 03-30-2013 [facility] (6 sources) Methylphenidate; Translations: [methylphenidate] Drug Allergy [facility] (9 sources) traMADol; Translations: [tramadol] Drug Allergy 03-30-2013 SEIZURE [facility] Medications Current Medications Medication Drug Class(es) Dates [...] Anesthetic Start: 02-10-2022 End: 02-10-2022 lidocaine-EPINEPHrine 1 %-1:[id number] injection 20 mL Problems Problem Classification Problem [...] [Chronic fatigue, unspecified] Onset: 07-27-2021 07-27-2021 Chronic Miscellaneous mental health disorders (1 source) Depressed mood; Translations: [Other symptoms and signs involving emotional state] 12-13-2024 Episodic Open wounds of head; neck; and trunk [...] Test Name Value Interpretation Reference Range Facility Serum or plasma ethanol inocencia urement (mass/volume)Ordered By: Matthew Main on 12-13-2024 Ethanol [Mass/Vol] mg/dL <10.1 [facility] Comment on above: This test is for med ical purposes only. The legal definition of intoxication varies according to local law. CT HEAD OR BRAIN W/O CONTRAS Ton [...] Date: 10/13/2024 8:05:08 PM Ordering Provider: DIEGO KIMBERLY [facility] UFENTSon 10-28-2023 Fentanyl (u) Positive Abnormal Negative [facility] ([place]) Comment on above: Result Comment: Test ing has been performed FOR MEDICAL PURPOSES ONLY. Performed By: #### U VIC BALDWIN #### [facility] [address] [place] [id number] #### UDRUG #### [address] [address] UOXYSon 10-28-2023 Oxycodone (u) Negative Normal Negative [facility] ([place]) Comment on above: Result Comment: Test ing has been performed FOR MEDICAL PURPOSES ONLY. Performed By: #### U VIC BALDWIN ####[facility] [place] [id number]#### UDRUG ####[address] [address] .Auto Diffon 10-27-2023 Basophil, Absolute 0.0 10 3/mcL Normal 0.0-0.2 [facility] ([place]) Comment on above: Performed By: #### B EDIWN DELGADO, CBC, ADIFF, GFR, ANEU #### [address] [address] Basophils/100 WBC (Bld) 0.5 % Normal 0.0-2.5 [facility] ([place]) Comment on above: Performed By: #### B MD DANNYW, CBC, ADIFF, GFR, ANEU #### [address] [address] Eosinophil, Absolute 0.3 10 3/mcL Normal 0.0-0.4 [facility] ([place]) Comment on above: Performed By: #### B MD DANNYW, CBC, ADIFF, GFR, ANEU #### [address] [address] Eosinophils/100 WBC (Bld) 3.9 % Normal 0.0-7.0 [facility] ([place]) Comment on above: Performed By: #### B DANNY, W, CBC, ADIFF, GFR, ANEU #### [address] [address] Lymphocyte, Absolute 1.8 10 3/mcL Normal 0.8-3.9 [facility] ([place]) Comment on above: Performed By: #### B EDWIN DELGADO, CBC, ADIFF, GFR, ANEU #### [address] [address] Lymphocytes/100 WBC (Bld) 23.0 % Normal 10.0-50.0 [facility] ([place]) Comment on above: Performed By: #### B EDWIN DELGADO, CBC, ADIFF, GFR, ANEU #### [address] [address] Monocyte, Absolute 0.7 10 3/mcL Normal 0.2-1.0 [facility] ([place]) Comment on above: Performed By: #### B EDWIN DELGADO, CBC, ADIFF, GFR, ANEU #### [address] [address] Monocytes/100 WBC (Bld) 9.7 % Normal 1.7-13.0 [facility] ([place]) Comment on above: Performed By: #### B EDWIN DELGADO, CBC, ADIFF, GFR, ANEU #### [address] [address] Neutrophils/100 WBC (Bld) 62.9 % Normal 37.0-80.0 [facility] ([place]) Comment on above: Performed By: #### B EDWIN DELGADO, CBC, ADIFF, GFR, ANEU #### [address] [address] .GFRon 10-27-2023 GFR 93 ml/min/1.73sqm Normal [facility] ([place]) Comment on above: Result Comment: GFR Population [...] mL/min/1.73 square meters Performed By: #### B DANNY, W, CBC, ADIFF, GFR, ANEU #### [address] [address] GFR Non- 77 ml/min/1.73sqm Normal [facility] ([place]) Comment on above: Result Comment: GFR Population [...] mL/min/1.73 square meters Performed By: #### B DANNY, W, CBC, ADIFF, GFR, ANEU #### [address] [address] .MDWon 10-27-2023 Monocyte Distribution Width 15.66 Normal 0.00-20.00 [facility] ([place]) Comment on above: Result Comment: For ED adult patients suspected of sepsis, MDW<=20.0 does not rule out sepsis or risk of sepsis Performed By: #### B DANNY, W, CBC, ADIFF, GFR, ANEU #### [address] [address] .NEUABSon 10-27-2023 Neutrophil, Absolute 4.9 10 3/mcL Normal 2.9-6.2 [facility] ([place]) Comment on above: Performed By: #### B DANNY, W, CBC, ADIFF, GFR, ANEU #### [address] [address] Abena 10-27-2023 Ethanol Level <3 Normal 0-3 [facility] ([place]) Comment on above: Performed By: #### A LC #### [address] [address] BMPon 10-27-2023 BUN/Creatinine Ratio 15 ratio Normal 7-27 [facility] ([place]) Comment on above: Performed By: #### B EDWIN DELGADO, CBC, ADIFF, GFR, ANEU #### [address] [address] Calcium [Mass/Vol] 9.0 mg/dL Normal 8.4-10.2 [facility] ([place]) Comment on above: Performed By: #### B EDWIN DELGADO, CBC, ADIFF, GFR, ANEU #### [address] [address] Chloride [Moles/Vol] 104 mmol/L Normal 98-107 [facility] ([place]) Comment on above: Performed By: #### B EDWIN DELGADO, CBC, ADIFF, GFR, ANEU #### [address] [address] CO2 [Moles/Vol] 35 mmol/L High 22-29 [facility] ([place] Comment on above: Performed By: #### B EDWIN DELGADO, CBC, ADIFF, GFR, ANEU #### [address] [address] Creatinine [Mass/Vol] 1.06 mg/dL Normal 0.70-1.30 [facility] ([place] Comment on above: Performed By: #### B EDWIN DELGADO, CBC, ADIFF, GFR, ANEU #### [address] [address] Electrolyte Balance 4.0 mEq/L Normal 4.0-15.0 [facility] ([place]) Comment on above: Performed By: #### B EDWIN DELGADO, CBC, ADIFF, GFR, ANEU #### [address] [address] Glucose [Mass/Vol] 132 mg/dL High 70-105 [facility] ([place]) Comment on above: Performed By: #### B EDWIN DELGADO, CBC, ADIFF, GFR, ANEU #### [address] [address] Potassium [Moles/Vol] 4.0 mmol/L Normal 3.5-5.1 [facility] [place] Comment on above: Performed By: #### B EDWIN DELGADO, CBC, ADIFF, GFR, ANEU #### [address] [address] Sodium [Moles/Vol] 143 mmol/L Normal 136-145 [facility] ([place]) Comment on above: Performed By: #### B EDWIN DELGADO, CBC, ADIFF, GFR, ANEU #### [address] [address] Urea nitrogen [Mass/Vol] 16 mg/dL Normal 7-18 [facility] ([place]) Comment on above: Performed By: #### B EDWIN DELGADO, CBC, ADIFF, GFR, ANEU #### [address] [address] CBCon 10-27-2023 Erythrocyte distribution width (RBC) [Ratio] 13.7 % Normal 11.5-14.5 [facility] ([place]) Comment on above: Performed By: #### B EDWIN DELGADO, CBC, ADIFF, GFR, ANEU #### [address] [address] Hematocrit (Bld) [Volume fraction] 39.5 % Low 42.0-52.0 [facility] ([place] Comment on above: Performed By: #### B EDWIN DELGADO, CBC, ADIFF, GFR, ANEU #### [address] [address] Hgb 13.8 G/dL Low 14.0-18.0 [facility] ([place]) Comment on above: Performed By: #### B EDWIN DELGADO, CBC, ADIFF, GFR, ANEU #### [address] [address] MCH (RBC) [Entitic mass] 32.3 pg High 27.0-31.2 [facility] ([place]) Comment on above: Performed By: #### B EDWIN DELGADO, CBC, ADIFF, GFR, ANEU #### [address] [address] MCHC 34.8 G/dL Normal 31.8-35.4 [facility] ([place]) Comment on above: Performed By: #### B EDWIN DELGADO, CBC, ADIFF, GFR, ANEU #### [address] [address] MCV (RBC) [Entitic vol] 92.8 fL Normal 80.0-94.0 [facility] ([place]) Comment on above: Performed By: #### B EDWIN DELGADO, CBC, ADIFF, GFR, ANEU #### [place] [address] Platelet 201 10 3/mcL Normal 130-400 [facility] ([place]) Comment on above: Performed By: #### B EDWIN DELGADO, CBC, ADIFF, GFR, ANEU #### [place] [address] Platelet mean volume (Bld) [Entitic vol] 6.8 fL Low 7.4-10.4 [facility] ([place]) Comment on above: Performed By: #### B EDWIN DELGADO, CBC, ADIFF, GFR, ANEU #### [address] [address] RBC 4.26 10 6/mcL Normal 4.04-6.13 [facility] ([place]) Comment on above: Performed By: #### B EDWIN DELGADO, CBC, ADIFF, GFR, ANEU #### [address] [address] WBC 7.7 10 3/mcL Normal 4.6-10.8 [facility] ([place]) Comment on above: Performed By: #### B EDWIN DELGADO, CBC, ADIFF, GFR, ANEU #### [address] [place], [place] [address] LABORATORYOrdered By: Aurea Morocho on 10-27-2023 Amphetamines [...] UDRUGon 10-27-2023 Amphetamine (u) Negative Normal Negative [facility] ([place]) Comment on above: Performed By: #### U FENTS, UOXYS #### [place] [address] #### UDRUG #### [address] [address] Barbiturate (u) Negative Normal Negative [facility] ([place]) Comment on above: Performed By: #### U FENTS, UOXYS #### [place] [address] #### UDRUG #### [address] [address] Benzodiazepine (u) Negative Normal Negative [facility] ([place]) Comment on above: Performed By: #### U FENTS, UOXYS #### [place] [address] #### UDRUG #### [address] [address] Cannabinoid (u) Negative Normal Negative [facility] ([place]) Comment on above: Performed By: #### U FENTS, UOXYS #### [place] [address] #### UDRUG #### [address] [address] Cocaine Ql (U) Negative Normal Negative [facility] ([place]) Comment on above: Performed By: #### U FENTS, UOXYS #### [place] [address] #### UDRUG #### [address] [address] Methadone Ql (U) Negative Normal Negative [facility] ([place]) Comment on above: Performed By: #### U NIDIAS UOXYS #### [address] [address] #### UDRUG #### [place] [id number] Opiate (u) Negative Normal Negative [facility] ([place]) Comment on above: Performed By: #### U FENTS, UOXYS #### [address] [address] #### UDRUG #### [address] [address] PCP (u) Negative Normal Negative [facility] ([place]) Comment on above: Performed By: #### U NIDIAS UOXYS #### [place] [address] #### UDRUG #### [place] [address] Urine Drugs screened: See Below [facility] ([place] Comment on above: Result Comment: This [...] MEDICAL PURPOSES ONLY. Performed By: #### U FENTS UOXYS #### [place] [address] #### UDRUG #### [place] [id number] XR ANKLE MINIMUM [address] [facility] 03-28-2023 XR ANKLE MINIMUM 3 [...] Date: 03/28/2023 11:37:19 AM Ordering Provider: DEEPTI Kwon [facility] ([place]) CT Head or Brain w/o Lili marmolejo 02-10-2022 CT Head or Brain w/o Contrast [facility]: [id number] Tom[facility] ACCESSION EXAM DATE/TIME PROCEDURE ORDERING PROVIDER [id number] 02/10/2022 05:[address] Head or Brain w/o 030032 -KIBE, BEENA Contrast CPT code 51592 Reason For Exam (CT Head or Brain [...] Transcribed Date and Time: 02/10/2022 6:09 Normal [facility] CT Maxillofacial w/o Contras ton 02-10-2022 CT Maxillofacial w/o Contrast Patient Name: OSMAN OMALLEY Computed Tomography ACCESSION EXAM DATE/TIME PROCEDURE ORDERING PROVIDER [id number] 02/10/2022 05:[address] Maxillofacial w/o [id number] -KIBE, BEENA Contrast CPT code 59700 Reason For Exam (CT Maxillofacial w/o Contrast) [...] Transcribed Date and Time: 02/10/2022 6:09 Normal [facility] ED Provider Noteon 2 ED Provider Note [facility] ED EMERGENCY DEPARTMENT ENCOUNTER Pt Name: Osman [...] for evaluation for a fall with a islam to the forehead. Patient states got lightheaded [...] Not Currently Comment: unable to assess SCREENINGS [place] Coma Scale Eye Opening: Spontaneous Best Verbal Response: Oriented Best Motor Response: Obeys commands [place] Coma Scale Score: 15 PHYSICAL EXAM (up [...] Palpations: Abdome (more content not included)... Normal [facility] No Panel Informationon 02-10 Beena Brown MD 02/10/2022 7:56 AM [employer] Date/Time: 02/10/2022 7:51 AM Performed by: Beena Brown MD Authorized by: Beena Brown MD Consent: Consent obtained: Verbal Consent given by: Patient Risks, benefits, and alternatives were discussed: yes Risks discussed: Infection, poor cosmetic result, pain, retained foreign body, poor wound healing and need for additional repair Davin protocol: Patient identity confirmed: Verbally with patient [...] [facility] Work Phone: [facility]: [id number] Computed Tomography ACCESSION EXAM DATE/TIME PROCEDURE ORDERING PROVIDER [id number] 02/10/2022 05:[address] Head or Brain w/o 969508 -KIBE, BEENA Contrast CPT code 45903 Reason For Exam (CT Head or Brain [...] Date and Time: 02/10/2022 6:09 [facility] Minesh Munoz MD - 02/10/2022 [id number] Computed Tomography ACCESSION EXAM DATE/TIME PROCEDURE ORDERING PROVIDER [id number] 02/10/2022 05:[address] Head or Brain w/o 226471 -KIBE, BEENA Contrast CPT code 95621 Reason For Exam (CT Head or Brain [...] [facility] Work Phone: [facility]: [id number] Computed Tomography ACCESSION EXAM DATE/TIME PROCEDURE ORDERING PROVIDER [id number] 02/10/2022 05:[address] Maxillofacial w/o 031105 -KIBE, BEENA Contrast CPT code 37212 Reason For Exam (CT Maxillofacial w/o Contrast) [...] JASON Transcribed Date and Time: 02/10/2022 6:09 [facility] Minesh Munoz MD - 02/10/2022 Patient Name: OSMAN OMALLEY Computed Tomography ACCESSION EXAM DATE/TIME PROCEDURE ORDERING PROVIDER [id number] 02/10/2022 05:[address] Maxillofacial w/o 611097 -KIBE, BEENA Contrast CPT code 05195 Reason For Exam (CT Maxillofacial w/o Contrast) [...] Panel InformationOrdered By: Minesh Munoz on 02-10-2022 [facility] Work Phone: LABORATORYOrdered By: Faby Lackey on 01-27-2022 ADMITTED TO INTENSIVE CARE UNIT FOR CONDITION OF INTEREST:FIND:PT:^VIRGILIO ENT:ORD: No (01/27/22 5:01 AM) Invalid Interpretation Code AO Auto Urine SS EMPLOYED IN A HEALTHCARE SETTING:FIND:PT:^VIRGILIOE NT:ORD: Unknown (01/27/22 5:01 AM) Invalid Interpretation [...] Urine SS RESIDES IN A CONGREGATE CARE SETTING:FIND:PT:^IGNACIA NT:ORD: Unknown (01/27/22 5:01 AM) Invalid Interpretation [...] Date Time Vital Sign Value Performing Clinician Facility 12-13-2024 10:43-0400 Body temperature 98.3 [degF] Dr. Matthew Main MD Work Phone: 7(856)[phone] [place] [address] 12-13-2024 10:43-0400 Diastolic blood pressure 93 mm[Hg] Dr. Matthew Main MD Work Phone: [phone])[phone] [place] [address] 12-13-2024 10:43-0400 Heart rate 78 /min Dr. Matthew Main MD Work Phone: 1(791)[phone] [place] [address] 12-13-2024 10:43-0400 Respiratory rate 16 /min Dr. Matthew Main MD Work Phone: 1(631)[phone] [place] [address] 12-13-2024 10:43-0400 SaO2% (BldA) [Mass fraction] 99 % Dr. Matthew Main MD Work Phone: 6(289)074-725633 [place] [address] 12-13-2024 10:43-0400 Systolic blood pressure 139 mm[Hg] Dr. Matthew Main MD Work Phone: 2(960)[phone] [address] 12-13-2024 08:45-0400 Body height 170.[address] Matthew Main MD Work Phone: 0(323)[phone] [place] [address] 12-13-2024 08:45-0400 Body mass index (BMI) [Ratio] 24.5 kg/m2 Dr. Matthew Main MD Work Phone: 5(888)412-283133 [place] [address] 12-13-2024 08:45-0400 Body weight 70.[address] Matthew Main MD Work Phone: [facility] 10-27-2023 22:11-0400 Diastolic Blood Pressure Non-Invasive 88 mm[Hg] VITALY VILLARREAL MD [facility] 10-27-2023 22:11-0400 Heart rate 86 /min VITALY VILLARREAL MD [facility] 10-27-2023 22:11-0400 Respiratory rate 16 /min VITALY VILLARREAL MD [facility] 10-27-2023 22:11-0400 Systolic Blood Pressure Non-Invasive 130 mm[Hg] VITALY VILLARREAL MD [facility] 10-27-2023 20:59-0400 Body temperature 98.78 [degF] VITALY VILLARREAL MD [facility] 10-27-2023 20:59-0400 Body weight 74.9 kg VITALY VILLARREAL MD [facility] 10-27-2023 20:59-0400 Diastolic Blood Pressure Non-Invasive 97 mm[Hg] VITALY VILLARREAL MD [facility] 10-27-2023 20:59-0400 Heart rate 93 /min VITALY VILLARREAL MD [facility] 10-27-2023 20:59-0400 Respiratory rate 16 /min VITALY VILLARREAL MD [facility] 10-27-2023 20:59-0400 Systolic Blood Pressure Non-Invasive 157 mm[Hg] VITALY VILLARREAL MD [facility] 03-28-2023 11:05-0500 Body temperature 98.6 [degF] DR DEEPTI CASTILLO MD [facility] 03-28-2023 11:05-0500 Body weight 72.[address] DEEPTI CASTILLO MD [facility] 03-28-2023 11:05-0500 Diastolic Blood Pressure Non-Invasive 80 mm[Hg] DR DEEPTI CASTILLO MD [facility] 03-28-2023 11:05-0500 Heart rate 99 /min DR DEEPTI CASTILLO MD [facility] 03-28-2023 11:05-0500 Respiratory rate 16 /min DR DEEPTI CASTILLO MD [facility] 03-28-2023 11:05-0500 Systolic Blood Pressure Non-Invasive 109 mm[Hg] DR DEEPTI CASTILLO MD [facility] 02-10-2022 04:43-0400 Body mass index (BMI) [Ratio] 24.37 kg/m2 Beena Brown MD Work Phone: [facility] 02-10-2022 04:43-0400 Body weight 74.84 kg Beena Brown MD Work Phone: [facility] 02-10-2022 04:42-0400 Body temperature 98.29 [degF] Beena Brown MD Work Phone: [facility] 02-10-2022 04:42-0400 Diastolic blood pressure 91 mm[Hg] Beena Brown MD Work Phone: [facility] 02-10-2022 04:42-0400 Heart rate 73 /min Beena Brown MD Work Phone: [facility] 02-10-2022 04:42-0400 Respiratory rate 16 /min Beena Brown MD Work Phone: [facility] 02-10-2022 04:42-0400 SaO2% (BldA) [Mass fraction] 99 % Beena Brown MD Work Phone: [facility] 02-10-2022 04:42-0400 Systolic blood pressure 136 mm[Hg] Beena Brown MD Work Phone: [facility] 01-27-2022 05:05-0400 Diastolic blood pressure 78 mm[Hg] NAZARIO ESQUIVEL MD [facility] 01-27-2022 05:05-0400 Mean blood pressure 95 mm[Hg] NAZARIO ESQUIVEL MD [facility] 01-27-2022 05:05-0400 Respiratory rate 20 /min NAZARIO ESQUIEVL MD [facility] 01-27-2022 05:05-0400 Systolic blood pressure 128 mm[Hg] NAZARIO ESQUIVEL MD [facility] 01-27-2022 03:06-0400 Body temperature 98.24 [degF] NAZARIO ESQUIVEL MD [facility] 01-27-2022 03:06-0400 Diastolic blood pressure 86 mm[Hg] NAZARIO ESQUIVEL MD [facility] 01-27-2022 03:06-0400 Heart rate 91 /min NAZARIO ESQUIVEL MD [facility] 01-27-2022 03:06-0400 Respiratory rate 20 /min NAZARIO ESQUIVEL MD [facility] 01-27-2022 03:06-0400 Systolic blood pressure 132 mm[Hg] NAZARIO ESQUIVEL MD [facility] 10-19-2021 17:14-0400 Body height 175.3 cm VITALY VILLARREAL MD [facility] 10-19-2021 17:14-0400 Body temperature 98.96 [degF] VITALY VILLARREAL MD [facility] 10-19-2021 17:14-0400 Body weight 77.3 kg VITALY VILLARREAL MD [facility] 10-19-2021 17:14-0400 Diastolic blood pressure 80 mm[Hg] VITALY VILLARREAL MD [facility] 10-19-2021 17:14-0400 Heart rate 100 /min VITALY VILLARREAL MD [facility] 10-19-2021 17:14-0400 Respiratory rate 24 /min VITALY VILLARREAL MD [facility] 10-19-2021 17:14-0400 Systolic blood pressure 131 mm[Hg] VITALY VILLARREAL MD [facility] 07-18-2021 09:38-0400 Body height 170.2 cm IRAIS HILTONT DO [facility] 07-18-2021 09:38-0400 Body temperature 97.7 [degF] IRAIS GALINDOMELT DO [facility] 07-18-2021 09:38-0400 Body weight 72.7 kg IRAIS FROMMELT DO [facility] 07-18-2021 09:38-0400 Diastolic blood pressure 98 mm[Hg] IRAIS FROMMELT DO [facility] 07-18-2021 09:38-0400 Heart rate 102 /min IRAIS FROMMELT DO [facility] 07-18-2021 09:38-0400 Respiratory rate 20 /min IRAIS SMITH DO [facility] 07-18-2021 09:38-0400 Systolic blood pressure 154 mm[Hg] IRAIS SMITH DO [facility] Encounters Encounter Date Encounter Type Care Provider Facility Start: 12-13-2024 End: 12-13-2024 Emergency department patient visit Dr. Matthew Main MD Work Phone: -Emergency Department Work Phone: Start: 10-13-2024 End: 10-13-2024 Emergency department patient visit DIEGO HARRIS MD [facility] Start: 10-27-2023 End: 10-27-2023 Emergency department patient visit VITALY VILLARREAL MD [facility] Start: 03-28-2023 End: 03-28-2023 Emergency department patient visit DR DEEPTI CASTILLO MD [facility] Start: 02-10-2022 End: 02-10-2022 Emergency department patient visit [facility] Start: 02-10-2022 End: 02-10-2022 Emergency department patient visit Beena Brown MD Work Phone: [facility] Comment on above: Facial laceration, i nitial encounter (Primary Dx) Start: 01-27-2022 End: 01-27-2022 Emergency department patient visit NAZARIO ESQUIVEL MD [facility] Start: 10-19-2021 End: 10-19-2021 Emergency department patient visit VITALY VILLARREAL MD [facility] Start: 07-18-2021 End: 07-18-2021 Emergency department patient visit IRAIS SMITH DO [facility] Procedures Date Procedure Procedure Detail Performing Clinician Start: 02-10-2022 LACERATION REPAIR Ana Brown MD Work Phone: Start: 02-10-2022 Ct head/brain w/o contrast material Beena Brown MD Work Phone: Amputated finger (finding) [facility] Congenital anomaly o f eye (disorder) IRAIS [facility] Plan of Treatment Date Care Activity Detail Author Start: 11-07-2030 DTaP/Tdap/Td vaccine (2 - Td or Tdap) DTaP/Tdap/Td vaccine (2 - Td or Tdap) [facility] Start: 11-07-2025 Lipid panel Lipids [facility] Start: 12-13-2024 [facility] Start: 11-20-2021 Influenza vaccination Flu vaccine (#1) [facility] Start: 11-07-2021 Depression Screen Depression Screen [facility] Start: 1999 Hepatitis C screening Hepatitis C screen [facility] Start: 1996 HIV screening HIV screen [facility] Start: 1987 Pneumococcal 0-64 years Vaccine (1 - PCV) Pneumococcal 0-64 years Vaccine (1 - PCV) [facility] Start: 1981 COVID-19 Vaccine (#1) COVID-19 Vaccine (#1) [facility] Patient Education ED Depression [facility] Work Phone: Immunizations Immunization Date Immunization Notes Care Provider Fa cility 11-07-2020 tetanus toxoid, redu jasiel diphtheria toxoid, and acellular pertussis vaccine, adsorbed Beena Brown MD Work Phone: [facility] Payers Date Payer Category Payer Self-pay 1981 Unknown [id number] 1981 Unknown [id number] 1981 Unknown [id number] 1981 Unknown [id number] Social History Date Type Detail Facility Start: 12-07-2018 End: 03-28-2023 Tobacco smoking status Heavy tobacco smoker (finding) [facility] Sex Assigned At [facility] Start: 11-07-2020 End: 12-13-2024 Tobacco smoking status ILIS Smokes tobacco daily [facility] Start: 11-07-1997 History of tobacco use Cigarette Smo ker [facility] Work Phone: Start: 11-07-2020 Cigarettes smoked current (pack per day) - Reported 1 [facility] Work Phone: Start: 11-07-2020 Tobacco use and exposure Smokeless tobacco non-user [facility] Work Phone: Start: 02-10-2022 Alcohol intake Current drinke r of alcohol (finding) [facility] Work Phone: Start: 11-07-2020 End: 02-10-2022 History SDOH Alcohol Frequency 2 [facility] Work Phone: Start: 11-07-2020 End: 02-10-2022 History SDOH Alcohol Std Drinks 1 [facility] Work Phone: Start: 11-07-2020 History SDOH Physica l Activity DPW 7 [facility] Work Phone: Start: 11-07-2020 History SDOH Physica l Activity MPS 6 [facility] Work Phone: Start: 11-07-2020 History SDOH Financial 4 [facility] Work Phone: Start: 09-22-2016 Tobacco Comment unable to assess [facility] Work Phone: Start: 11-07-2020 Alcohol Comment hardly at all [facility] Work Phone: Start: 1980 Sex Assigned At Not on file S [facility] Work Phone: Start: 01-31-2022 End: 02-10-2022 Exposure to SARS-CoV-2 (event) Not sure [facility] Work Phone: Start: 12-15-2013 Sex Male (finding) [facility] Start: 1980 Sex Assigned At Male W [facility] Functional Status Date Assessment Result Facility 10-27-2023 Functional Status Independent [facility] 10-27-2023 Functional Status Standard Safet y ID band on, Allergy Band on, Call device within reach, Bed in low position, Wheels locked, Upper/Half-Length side-rails up, Phone within reach, Safety level maintained [facility] 03-28-2023 Functional Status Standard Safet y ID band on, Call device within reach, Bed in low position, Wheels locked, Upper/Half-Length side-rails up, Bedside Cart Locked, Safety level maintained [facility] 01-27-2022 Functional Status Independent [facility] 01-27-2022 Functional Status Awake [facility] 07-18-2021 Functional Status [facility] Mental Status Date Assessment Result Facility 10-27-2023 Mental Status Orientation Oriented x 4 [facility] 10-27-2023 Mental Status [facility] 03-28-2023 Mental Status Orientation Oriented x 4 [facility] 01-27-2022 Mental Status Orientation Oriented x 4 [facility] 01-27-2022 Mental Status [facility] [place] 07-18-2021 Mental Status [facility] [place] Clinical Notes 07-18-2021 to 12-13-2024 Note Date & Type Note Facility 12-13-2024 Discharge summary [facility] 10-13-2024 Hospital Discharge instructions Patient Education 10/13/2024 19:19:48 Head Injury [...] the ears or bruising around the eyes [phone] [employer]. [address] [place] [address]. All rights reserved. This information is not intended as a substitute for professional medical care. Always follow your healthcare professional's instructions. Follow Up Care 10/13/2024 18:43:59 With:KEKE PINTO Address: [address] [place] [address] Business (1) When:2-4 days Comments:Follow-up as needed.Tylenol or Advil for pain as needed.You are cleared to return to work without restrictions.Return to the ED if symptoms worsen. [facility] 10-13-2024 Note Discharge Instructions Thank you for allowing [facility] to assist you with your healthcare needs. [...] KEKE PINTO When:Within 2-4 days Where:[address], [place] [address] Business (1) Additional Information: Follow-up as needed. Tylenol [...] the ears or bruising around the eyes 6848-1466 [employer]. [address] [place], [place] [address]. All rights reserved. This information is not intended as a substitute for professional medical care. Always follow your healthcare professional's instructions. Additional Information VACCINATE! IT SAVES LIVES! Members of the community who have not yet received the COVID-19 vaccine and would like to receive it can visit one of [facility] vaccine clinics. There are many vaccine clinic locations within the [facility]. For locations and available times, please visit www.[email or web address].[place].gov /. It is important to note that some COVID mobile vaccine clinics are held outdoors and may be canceled in rainy or stormy conditions. To learn more about pediatric vaccinations (ages 5-11), we invite you to visit the [facility] webpage. https://www.[facility].org/page s/0977-Ddvhl-Ekhtbvlstiw-Frequently -Asked-Questions.html To learn more about the COVID-19 vaccine, we invite you to visit the CDC website for a list of frequently asked questions. https://www.cdc.gov/coronavirus/201 9-ncov/vaccines/faq.html [facility] Patient Portal Access Instructions: Stay connected with your healthcare team and access your personal medical information anytime with the [facility] Patient Portal. If you would like a full copy of your medical records please contact the [facility] Medical Records Department Saturday through Saturday between 8a.m. and 4:30p.m. Please follow the directions below to access the portal: 1.Access the email account you provided upon registration to the [facility].2.Look for an invitation email from [facility].3.Open the email and access the invitation link: Accept Invitation to [facility]4.Fill in the required dan to create your account. Sign into [email or web address] with your username and password that you [...] you will allow to register on the [facility] Patient Portal for access to your information. You can also access the [facility] Patient Portal on the SportsBeat.com. Simply click on Health Records under Health Data and then click on the F[employer] logo. HOW TO SAFELY DISPOSE OF PRESCRIPTION [...] Call your local pharmacy or go to http://iMedX.WomenCentric/[email or web address] to find one close to you.3.Make use of household items: Use cat litter or old coffee grounds to dispose medications if other options are not available. Mix your drugs with these household products, seal them in an airtight container and throw it into the garbage. Call [facility]: [phone] to be sure your drugs can be [...] aware that I should contact my doctor. Patient/Neighborhood Service Center Director Signature: ____ Date/Time: Relationship to Patient: __ Witness Name/Signature: Date/Time: [facility] 10-13-2024 Note Exam Date Time Procedure Performing Provider Status 10/13/24 7:[address] Head or Brain w/o Contrast TIMI ROPER MD; Auth (Verified) [id number] ORIGINAL EXAMINATION: CT OF THE HEAD WITHOUT [...] Date: 10/13/2024 8:05:08 PM Ordering Provider: [facility]07-08-2024 Hospital Discharge instructions Patient Education [...] away Iif symptoms of altered LOC return. 8802-6708 [employer]. [address] [place] [address], [place] [address]. All rights reserved. This information is not intended as a substitute for professional medical care. Always follow yourhealthcare professional's instructions. Follow Up Care 10/27/2023 20:43:34 With:KEKE PINTO MD Address: [address], [place] [id number]- When:2-4 days [facility] 07-07-2024 Note Discharge Instructions Thank you for allowing [facility] to assist you with your healthcare needs. The following is importantdischarge information regarding your hospital visit. Diagnosis from Today's Visit Drowsiness What to Do Next Instructions from Your Care Team No qualifying data available. Post Acute Orders No qualifying data available. You Need to Schedule the Following Appointments Follow Up with KEKE PINTO MD When:Within 2-4 days Where:[address] [place] [address]- Allergies Flexeril Ritalin traMADol Medications Please ask [...] away Iif symptoms of altered LOC return. 9131-1172 [employer]. [address] [place] [address], [place] [address]. All rights reserved. This information is not intended as a substitute for professional medical care. Always follow yourhealthcare professional's instructions. Additional Information VACCINATE! IT SAVES LIVES! Members of the community who have not yet received the COVID-19 vaccine and would like to receive it can visit one of [facility] vaccine clinics. There are many vaccine clinic locations within the [facility]. For locations and available times, please visit www.[email or web address].[place].gov/. It is important to note that some COVID mobile vaccine clinics are held outdoors and may be canceled in rainy or stormy conditions. To learn more about pediatric vaccinations (ages 5-11), we invite you to visit the [facility] webpage. https://www.[facility].org/pages/6914-Acxgh-Htsukrnlnqh-Kfkyqfrqai-Swvmo-Oda stions.htmlTo learn more about the COVID-19 vaccine, we invite you to visit the CDC website for a list of frequently asked questions. https://www.cdc.gov/coronavirus/2019-ncov/vaccines/faq.html [facility] Patient Portal Access Instructions: Stay connected with your healthcare team and access your personal medical information anytime with the [facility] Patient Portal. If you would like a full copy of your medical records please contact the [facility] Medical Records Department Saturday through Saturday between 8a.m. and 4:30p.m. Please follow the directions below to access the portal: 1.Access the email account you provided upon registration to the hospital.2.Look for an invitation email from [facility].3.Open the email and access the invitation link: Accept Invitation to [facility]4.Fill in the required dan to create your account. Sign into [email or web address] with your username and password that you [...] you will allow to register on the [facility] Patient Portal for access to your information. You can also access the [facility] Patient Portal on the [employer] alexia. Simply click on Health Records under [employer] and then click on the Fash[employer] logo. HOW TO SAFELY DISPOSE OF PRESCRIPTION [...] Call your local pharmacy or go to http://iMedX.WomenCentric/7K0Qq5s to find one close to you.3.Make use of household items: Use cat litter or old coffee grounds to dispose medications if other options arenot available. Mix your drugs with these household products, seal them in an airtight container andthrow it into the garbage. Call [facility]: [phone] to be sure your drugs can be [...] aware that I should contact my doctor. Patient/Neighborhood Service Center Director Signature: Date/Time: Relationship to Patient: Witness Name/Signature: Date/Time: [facility]07-07-[address] elev, probable normal early repol pattern Electronic Signature: VITALY VILLARREAL MD 10/27/2023 21:30:54[facility] 07-07-2024 Evaluation + Plan note Diagnostic Tests Pending * Fentanyl Screen, Urine 10/27/23 * Oxycodone Screen, Urine 10/27/23 [facility] 12-07-2023 Hospital Discharge instructions Patient Education 03/28/2023 [...] thin towel or cloth. You may use qmyh-mqp-txdtoio pain medicine (NSAIDS or nonsteroidal anti- inflammatory [...] or is irritated You re-injure your ankle 6622-1369 [employer]. [address] [place] [address], [place] [address]. All rights reserved. This information is not intended as a substitute for professional medical care. Always follow yourhealthcare professional's instructions. Follow Up Care 03/28/2023 10:55:05 With:JONI RAMIREZ Address: [address] [place] [address] [address] [place] [phone] [email or web address] (1) When:2-4 days Comments:Return to ED if symptoms worsen With:KEKE PINTO MD Address: [address] [place] [address] When:2-4 days Comments:Return to ED if symptoms worsen [facility] 12-07-2023 Emergency department Discharge summary Discharge Instructions Thank you for allowing [facility] to assist you with your healthcare needs. [...] Return to ED if symptoms worsen Where: [address] [place] [address] [address] [place] [phone] [facility] (1) Follow Up with KEKE PINTO MD When Within 2-4 days Why: Return to ED if symptoms worsen Where: [address] [place] [address]- Allergies Flexeril Ritalin traMADol Medications Please ask [...] thin towel or cloth. You may use qibp-ltv-lyqqrvz pain medicine (NSAIDS or nonsteroidal anti- inflammatory [...] or is irritated You re-injure your ankle 3570-1857 [employer]. [address] [place] [address], [place] [address]. All rights reserved. This information is not intended as a substitute for professional medical care. Always follow yourhealthcare professional's instructions. Additional Information VACCINATE! IT SAVES LIVES! Members of the community who have not yet received the COVID-19 vaccine and would like to receive it can visit one of [facility] vaccine clinics. There are many vaccine clinic locations within the [facility]. For locations and available times, please visit www.gettheshot.coronavirus.[place].gov/. It is important to note that some COVID mobile vaccine clinics are held outdoors and may be canceled in rainy or stormy conditions. To learn more about pediatric vaccinations (ages 5-11), we invite you to visit the [facility] webpage. https://www.[facility].org/pages/7691-Eiucd-Wupjuykipic-Xxjqziokjy-Crzom-Ovp stions.htmlTo learn more about the COVID-19 vaccine, we invite you to visit the CDC website for a list of frequently asked questions. https://www.cdc.gov/coronavirus/2019-ncov/vaccines/faq.html [facility] Patient Portal Access Instructions: Stay connected with your healthcare team and access your personal medical information anytime with the [facility] Patient Portal. If you would like a full copy of your medical records please contact the [facility] Medical Records Department Saturday through Saturday between 8a.m. and 4:30p.m. Please follow the directions below to access the portal: 1.Access the email account you provided upon registration to the [facility].2.Look for an invitation email from [facility].3.Open the email and access the invitation link: Accept Invitation to [facility]4.Fill in the required dan to create your account. Sign into [email or web address] with your username and password that you [...] you will allow to register on the [facility] Patient Portal for access to your information. You can also access the [facility] Patient Portal on the SportsBeat.com. Simply click on Health Records under [facility] [employer] and then click on the [facility] logo. [...] Call your local pharmacy or go to http://iMedX.WomenCentric/6J4Kp0b to find one close to you.3.Make use of household items: Use cat litter or old coffee grounds to dispose medications if other options arenot available. Mix your drugs with these household products, seal them in an airtight container andthrow it into the garbage. Call [facility]: [phone] to be sure your drugs can be [...] aware that I should contact my doctor. Patient/Neighborhood Service Center Director Signature: Date/Time: Relationship to Patient: Witness Name/Signature: Date/Time: [facility]12-07-2023 Note ORIGINAL EXAMINATION: THREE XRAY VIEWS OF [...] Sign Date: 03/28/2023 11:37:19 AM Ordering Provider: [facility]10-22-2022 Hospital Discharge instructions* Discharge Instructions* Beena Brown [...] through Care Everywhere. * Facial Laceration: Stitches (Nigerian) * Lacerations: Adhesives (Nigerian) [facility] Work Phone: [phone] Hospital Discharge instructions Patient Education 01/27/2022 04:55:29 [...] the smoke from others. You may use teom-vvh-gruvwdk acetaminophen or ibuprofen for fever, muscle aching, [...] body and be dangerous to your health. Kqqn-wpo-ugvhmfs remedies won't shorten the length of the [...] or as directed by your healthcare provider [phone] The [employer]. [address] [place] [address]. All rights reserved. This information is not [...] fluids will help loosen secretionsin the lungs. Fptl-wrs-yphmkwn cough medicines that contain dextromethorphan (such as [...] Lower leg swelling, tenderness, redness or pain 4532-6537 [employer]. [address] [place] [address]. All rights reserved. This information is not intended as a substitute for professional medical care. Always follow yourhealthcare professional's instructions. Follow Up Care 01/27/2022 02:59:11 With:KEKE PINTO MD Address: [address] [place] [address] When:2-4 days [facility] 10-08-2022 Note ORIGINAL EXAMINATION: TWO XRAY VIEWS [...] Angel Tucker MD Preliminary Report By: Zoraida Bambi Electronically signed By Miguel Angel Tucker MD Dictated Date: 01/27/2022 4:02:25 AM Prelim Date: 01/27/2022 4:07:47 AM Sign Date: 01/27/2022 5:12:37 AM Ordering Provider: [facility]10-08-2022 Note Discharge Instructions Thank you for allowing [facility] to assist you with your healthcare needs. [...] When Within 2-4 days Where: [address] [place] [address]- Allergies Flexeril Ritalin traMADol Medications Please ask [...] the smoke from others. You may use rray-xaz-sdnquly acetaminophen or ibuprofen for fever, muscle aching, [...] body and be dangerous to your health. Rqic-kkw-haumehl remedies won't shorten the length of the [...] or as directed by your healthcare provider 9891-2105 [employer]. [address] [place] [address], [place] [address]. All rights reserved. This information is not [...] fluids will help loosen secretionsin the lungs. Qfgn-kxd-djjyuyr cough medicines that contain dextromethorphan (such as [...] Lower leg swelling, tenderness, redness or pain 4926-5737 [employer]. [address] [place] [address], [place] [address]. All rights reserved. This information is not intended as a substitute for professional medical care. Always follow yourhealthcare professional's instructions. Additional Information VACCINATE! IT SAVES LIVES! Members of the community who have not yet received the COVID-19 vaccine and would like to receive it can visit one of [facility] vaccine clinics. There are many vaccine clinic locations within the [facility]. For locations and available times, please visit www.[email or web address].[place].org. It is important to note that some COVID mobile vaccine clinics are held outdoors and may be canceled in rainy orstormy conditions. To learn more about pediatric vaccinations (ages 5-11), we invite you to visit the [facility] webpage. https://www.[facility].org/pages/8748-Uamvi-Hzvkeldhlpq-Ujeqavhkpb-Azrhc-Tcb stions.htmlTo learn more about the COVID-19 vaccine, we invite you to visit the [facility] website for a list of frequently asked questions. [email or web address]/Jcxrbvue-kih-Vmgfevfp/urovm-Xoudmxr-Racljfoxei _Asked-Questions.pdf [facility] Patient Portal Access Instructions: Stay connected with your healthcare team and access your personal medical information anytime with the [facility] Patient Portal. If you would like a full copy of your medical records please contact the [facility] Medical Records Department Saturday through Saturday between 8a.m. and 4:30p.m. Please follow the directions below to access the portal: 1.Access the email account you provided upon registration to the [facility].2.Look for an invitation email from [facility].3.Open the email and access the invitation link: Accept Invitation to [facility]4.Fill in the required dan to create your account. Sign into [email or web address] with your username and password that you [...] you will allow to register on the [facility] Patient Portal for access to your information. You can also access the [facility] Patient Portal on the SportsBeat.com. Simply click on Health Records under [facility] [employer] and then click on the F[employer]fix logo. HOW TO SAFELY DISPOSE OF PRESCRIPTION [...] Call your local pharmacy or go to http://bit.WomenCentric/4F1Uf8e to find one close to you.3.Make use of household items: Use cat litter or old coffee grounds to dispose medications if other options arenot available. Mix your drugs with these household products, seal them in an airtight container andthrow it into the garbage. Call [facility]: [phone] to be sure your drugs can be [...] aware that I should contact my doctor. Patient/Neighborhood Service Center Director Signature: Date/Time: Relationship to Patient: Witness Name/Signature: Date/Time: [facility]10-08-2022 SARS-CoV-2 (COVID-19) RNA GLENIS+probe Ql (Nph)Negative *NA* (01/27/22 5:01 AM)AO Auto Urine [id number] Note ORIGINAL EXAMINATION: TWO XRAY VIEWS OF [...] Date: 01/27/2022 5:12:37 AM Ordering Provider: NAZARIO [facility]06-30-2022 Hospital Discharge instructions Patient Education 10/19/2021 17:29:42 [...] certain antibiotics, control pills, or the herb Greycliff's wort. Check with your healthcare provider or [...] Reapply every few hours and after swimming. 1797-6910 The [employer]. [address] [place] [address], [place] [address]. All rights reserved. This information is not [...] pain medicine was prescribed, you may use qwdn-rkd-rmmyfez medicine to control pain. If you have [...] pick or scratch at the wound. Use kfcn-gti-mnyjlid medicines like diphenhydramine for itching. Avoid tight-fitting [...] appear to be healing Nausea or vomiting 3854-7203 The [employer]. [address] [place] [address]. All rights reserved. This information is not intended as a substitute for professional medical care. Always follow yourhealthcare professional's instructions. Follow Up Care 10/19/2021 17:08:03 With:KEKE PINTO MD Address: [address] [place] [address]- When:2-4 days [facility] 06-30-2022 Note Discharge Instructions Thank you for allowing [facility] to assist you with your healthcare needs. [...] When Within 2-4 days Where: [address] [place] [address]- Allergies Flexeril Ritalin traMADol Medications Please ask [...] may report side effects to FDA at 0-604-UYI-4357. What other drugs will affect bacitracin? It is not likely that other drugs you take orally or inject will have an effect on topically applied bacitracin. But many drugs can interact with each other. Tell each of your health care providers about all medicines you use, including prescription and fwkr-sxd-qyqewhn medicines, vitamins, and herbal products. Where can I get more information? Your pharmacist can provide more information about bacitracin topical. Remember, keep this and all other medicines out of the reach of children, never share your medicines with others, and use this medication only for the indication prescribed. Every effort has been made to ensure that the information provided by [employer]. ('[employer]') is accurate, up-to-date, and complete, but no guarantee is made to that effect. Drug information contained herein may be time sensitive. [employer] information has been compiled for use by healthcare practitioners and consumers in the [place] and therefore [employer] does not warrant that uses outside of the [place] are appropriate, unless specifically indicated otherwise. [employer] drug information does not endorse drugs, diagnose patients or recommend therapy. [employer] drug information isan informational resource designed to [...] effective or appropriate for any given patient. [employer] does not assume any responsibility for any aspect of healthcare administered with the aid of information [employer] provides. The information contained herein is not intended to cover all possible uses, directions, precautions, warnings, drug interactions, allergic reactions, or adverse effects. If you have questions about the drugs you are taking, check with your doctor, nurse or pharmacist. Copyright 9413-7038 [employer]. Version: 3.01. Revision Date: 01/19/2015. Education Materials [...] certain antibiotics, control pills, or the herb Greycliff's wort. Check with your healthcare provider or [...] Reapply every few hours and after swimming. 6592-7306 [employer]. [address] [place] [address]. All rights reserved. This information is not [...] pain medicine was prescribed, you may use ekar-egq-otgmevf medicine to control pain. If you have [...] pick or scratch at the wound. Use ktyj-akn-gxctoxp medicines like diphenhydramine for itching. Avoid tight-fitting [...] appear to be healing Nausea or vomiting [phone] The [employer]. [address] [place] [address]. All rights reserved. This information is not intended as a substitute for professional medical care. Always follow yourhealthcare professional's instructions. Additional Information VACCINATE! IT SAVES LIVES! Members of the community who have not yet received the COVID-19 vaccine and would like to receive it can visit one of [facility] vaccine clinics. There are many vaccine clinic locations within the [facility]. For locations and available times, please visit [email or web address]. It is important to note that some COVID mobile vaccine clinics are held outdoors and may be canceled in rainy orstormy conditions. To learn more about pediatric vaccinations (ages 5-11), we invite you to visit the [facility] webpage. [email or web address] [email or web address] learn more about the COVID-19 vaccine, we invite you to visit the [facility] website for a list of frequently asked questions. [email or web address]-[email or web address] _[email or web address] [facility] Patient Portal Access Instructions: Stay connected with your healthcare team and access your personal medical information anytime with the [facility] Patient Portal. If you would like a full copy of your medical records please contact the [facility] Medical Records Department Saturday through Saturday between 8a.m. and 4:30p.m. Please follow the directions below to access the portal: 1.Access the email account you provided upon registration to the [facility].2.Look for an invitation email from [facility].3.Open the email and access the invitation link: Accept Invitation to [facility]4.Fill in the required dan to create your account. Sign into [email or web address] with your username and password that you [...] you will allow to register on the [facility] Patient Portal for access to your information. You can also access the [facility] Patient Portal on the [email or web address]. Simply click on Health Records under [employer] and then click on the [facility] logo. HOW TO SAFELY DISPOSE OF PRESCRIPTION [...] Call your local pharmacy or go to [email or web address] to find one close to you.3.Make use of household items: Use cat litter or old coffee grounds to dispose medications if other options arenot available. Mix your drugs with these household products, seal them in an airtight container andthrow it into the garbage. Call [facility]: [phone] to be sure your drugs can be [...] aware that I should contact my doctor. Patient/Neighborhood Service Center Director Signature: Date/Time: Relationship to Patient: Witness Name/Signature: Date/Time: [facility]03-29-2022 Hospital Discharge instructions Patient Education 07/18/2021 10:09:15 Knee Pain of Uncertain Cause Knee Pain with Uncertain Cause There are several common causes for knee pain. These can include: A sprain of the ligaments that support the joint An injury to the cartilage lining of the joint Arthritis from utjb-ifo-bqji or inflammation There are other causes as [...] heat. If you have to wear a pjog-mns-rzsw knee brace, you can open it to apply the ice pack, or heat, directly to the knee. Never put ice directly on the skin. Always wrap the ice in atowel or other type of cloth. You may use gjgk-ara-iifcqkq pain medicine to control pain, unless another [...] full work duties. If you have a yoax-lxh-faat knee brace, you can remove it to [...] as directed by your healthcare provider Darrin [phone] [employer]. [address] [place] [address], [place] [address]. All rights reserved. This information is not intended as a substitute for professional medical care. Always follow yourhealthcare professional's instructions. Follow Up Care 07/18/2021 09:32:32 With:DO VAIBHAV BILLINGSLEY DO Address: [address] [place] [address] [address] [place] [address] When:2-4 days [facility] Discharge summary Author Matthew Main [facility] Note Date/Time December 13, 2024 10 :34am [facility] Medical Records Department [address] [place] [address] Emergency Department Summary 12/13/24 MR#: [id number] Acct: [id number] Name: OSMAN OMALLEY Rep #:[id number] : 1980 44 From: Matthew Main MD PCP: Care Physician,No Primary Status :REG ER Location: ED HPI HPI - Psych History of Present Illness Chief Complaint: Mental Health Informant: patient and police/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 He is brought here by police without being pink slipped, voluntarily to talk to a counselor. States this all really started 6 days ago or so when he was [place] [facility] because his cars wheel bearing broke, and he did not have enough money to fix it and once he was able to get it, it was challenging to fix, and now he is struggling financially and he states in other ways that he does not expound upon. He states he is not feeling suicidal nor did he attempt any type of suicide, he states he said something to the effect of I am done or finished last night and it was misconstrued/misinterpreted, and his cousin is on the police force, who was notified which is why the police were involved today. He denies using any alcohol or drugs this morning and denies any illnessor injury. PFSH PFSH Medical History no medical history no medical history Allergy/AdvReac Type Severity Reaction Status Date / Time tramadol Allergy SEIZURE Verified 12/13/24 08:46 Surgical History no surgical history ROS ROS ED Constitutional Constitutional ED: Denies chills or fever(s) Eyes Eyes: Denies change in vision or diplopia ENT ENT ED: Denies rhinorrhea or sore throat Cardiovascular Cardiovascular: Denies chest pain or palpitations Respiratory/Chest Respiratory/Chest: Denies cough or dyspnea Gastrointestinal Gastrointestinal: Denies abdominal pain, diarrhea, nausea or vomiting Genitourinary Genitourinary ED: Denies dysuria or hematuria Musculoskeletal Musculoskeletal: Denies back pain or neck pain Integumentary Denies abscess or rash Neurologic Neurologic: Denies headache(s), paresthesias or weakness Psychiatric Psychiatric: Reports depression; Denies anxiety, suicidal ideation or suicidal thoughts EXAM Physical Exam Const Vital Signs: 12/13/24 08:45 Temperature 97 F L Temperature Source Temporal Pulse Rate 93 Respiratory Rate 14 Blood Pressure 133/96 H Blood Pressure Mean 108 Pulse Ox 98 Positive well nourished and well developed General Appearance ED: well developed and NAD HEENT Reports moist mucous membranes normocephalic and atraumatic Eyes PERRL and EOMs intact bilaterally Neck full ROM and supple Resp normal respiratory effort and clear to auscultation bilaterally Cardio regular rate, regular rhythm and no murmurs GI non-tender and non-distended Auscultation: normoactive bowel sounds Palpation: soft Back/Spine no CVA tenderness General Back: other FROM Extremity normal to inspection General Extremety ED: Negative for edema, pulses abnormal or tenderness General Extremity: Negative for edema or pulses abnormal Neuro oriented x3, CN's II-XII intact bilaterally and no sensory deficits noted Sensorium / Orientation: awake and alert Motor Exam: strength 5/5 throughout Psych mental status grossly normal, thought process normal, cooperative, affect normal, speech normal, activity/motor behavior normal, denies hallucinations, denies homicidal ideation and denies suicidal ideation Mood & Affect: depressed Skin no rashes or lesions noted and no wounds MDM MDM MDM Narrative Medical decision making narrative: Alcohol negative, patient has a benign exam and vital signs and is medically cleared for crisis to evaluate which they did. Very discussed with the patient for a while and comfortable safety planning and given resources for follow-up, patient comfortable with that plan. I think he has relatively low risk here. He is insightful, he is not suicidal, he states he never was suicidal, and he has goal-directed thinking at this time. Lab Data Attestation: I reviewed the patient's lab results. Labs: Laboratory Results - last 24 hr 12/13/24 09:02 Ethyl Alcohol < 10.1 Discharge Plan Triage Chief Complaint: Mental Health ED Provider: Matthew Main Dx/Rx/DC Orders Clinical Impression: Depressed mood Instructions: ED Depression Primary Care Provider: Care Physician,No Primary Referrals: Counseling,Center [Group of Physicians] - Italia Cardozo DO [Non-Staff] - Print Language: Nigerian Disposition Disposition: Home, Self Care What to do if you have Problems For any increased pain, shortness of breath, bleeding, nausea or vomiting, chestpain, or any unexpected problems, contact your Primary Care Provider. Call [facility] ([phone]) or report to the closest Emergency Room. Call 911 if necessary. 12/13/24 1034 <Electronically signed by Matthew Main MD> Cosigner Signature (if applicable): CC: No Primary Care Physician ~ Signed [facility] Work Phone: Evaluation + Plan note No data available for this section [facility] Evaluation note* Diagnosis Facial laceration, initial encounter- Primary documented in this encounter [facility] Work Phone: Evaluation noteNo assessment information available [facility] Work Phone: Progress note No data available for this section [facility] Reason for referral (narrative)No reason for referral information [facility] Work Phone: Summary Purpose Family History No Family History Records Found No data available for this section No data available for this section No Family History Records Found No data available for this section No Family History Records Found Advance Directives Advance Directive Response Recorded Date/ Time Do you have a Healthcare Power of Inspector [employer]? 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, [place] [address] PCP - General Family Medicine 11/07/20 Team Status: Active Member Role/Relationship Status Dates No Primary Care Physician Primary Care Provider Active Team Status: Inactive Member Role/Relationship Status Dates Dr. Matthew Main MD Emergency Provider Active Start: December 13, 2024 End: December 13, 2024 No Primary Care Physician Primary Care Provider Active Start: December 13, 2024 End: December 13, 2024 Care Team (unrecognized sect ion and content) Care Team Personnel Name: KEKE PINTO MD [facility] Service: Family Practice Member Role: Primary Care Physician Address: Address: [address] [place] [address] Care Team [facility] Address: Home [address] Care Team Personnel Name: KEKE PINTO MD [facility] Service: Family Practice Member Role: Primary Care Physician Address: Address: [address] [place] [address] Care Team Related Persons Name: July Address: Home [address] Reason for Visit (unrecogniz ed section [...] Provid er: Marlyn Calloway RN) lidocaine-EPINEPHrine 1 %-[id number] injection 20 mL (COMPLETED) 20 mL, IntraDERmal, ONCE, 1 dose, On 02/10/22 at [phone] (Given - Provid er: Christine Graf RN) (unrecognized sect ion and content) No Status Records FoundNo Status Records FoundNo Status Records Found INFORMATION SOURCE (unrecogn ized section and content) DATE CREATED AUTHOR 02/13/2022 [facility] DATE CREATED AUTHOR AUTHOR'S ORGANIZ ATION 11/10/2023 [facility] ([place]) DATE CREATED AUTHOR AUTHOR'S ORGANIZ ATION 10/17/2024 [facility] Goals (unrecognized section and content) Goals may be documented in a n alternate section FOR RECORDS PERTAINING TO PATIENTS WHO ARE [...] BE BASED ON THE PRIMARY CLINICAL RECORDS. [employer] [facility]. provides no warranty or guarantee of the accuracy or completeness of information in this document.
[2024-12-13 17:55] LABS: Hematocrit 44.6 % (40-54); Hemoglobin 15.9 g/dL (13.0-16.5); Immature Granulocytes Count 0.010 X10^3/uL (0.0-0.0); Mean Corp Hgb Conc 35.7 g/dL (32-36); Mean Corpuscular Volume 90.8 fL (80-94); Mean Platelet Vol. 9.1 fl (6.2-12.0); NRBC Flagged by Analyzer 0 % (0-5); Platelet Count 226 K/mm3 (150-450); RBC Distribution Width CV 13.1 % (11.6-14.6); RBC Distribution Width SD 43.6 fl (35.1-43.9); Red Blood Count 4.91 M/mm3 (4.6-6.2); White Blood Count 8.4 K/mm3 (4.4-11.0)
[2024-12-13 18:03] LABS: Alcohol, Blood (Medical)-Serum < 10.1 mg/dL (<=10.0)
[2024-12-13 18:05] VITALS: BP 132/78; PULSE 88; RESP 23; O2SAT 98
[2024-12-13 18:05] LABS: AST(SGOT) 26 U/L (<=37); Alanine Aminotransfer ALT/SGPT 17 U/L (<=46); Albumin, Serum 4.1 g/dL (3.5-5.0); Alkaline Phosphatase 61 U/L (40-129); Anion Gap 13 (5-15); BUN 9 mg/dL (4-19); BUN/Creat Ratio 9.0 RATIO (10-20); Calcium,Total 9.1 mg/dL (7.6-11.0); Carbon Dioxide 24.6 mmol/L (21.0-32.0); Chloride 104 mmol/L (98-108); Estimated Creatinine Clearance 86.46 ml/min (50-250); Globulin 2.4 g/dL (2.2-4.2); Glucose 117 mg/dL (70-99); Potassium 4.0 mmol/L (3.3-5.1)
[2024-12-13 18:17] LABS: Barbiturate Urine NEGATIVE (< 200 ng/mL); Benzodiazepine Urine NEGATIVE (< 200 ng/mL); PCP Urine NEGATIVE (< 25 ng/mL); THC Urine NEGATIVE (< 50 ng/mL)
--- NOTE | 2024-12-13 18:37 | HP.PCM.HOS_ITS ---
HPI - General General Date of Admission: 12/13/24 Date of Service: 12/13/24 Chief Complaint: Opiate detox HPI Narrative ROHIT YOUNG, is a 44 M who presented to [facility] ED on 12/13/2024 for opiate detox. Patient has no significant past medical history. He snorts both fentanyl and methamphetamines. Typically will use 3-4 times per week and has been using for many years. Has never gone through detox before. Typically does not have very severe withdrawal symptoms if he does not use. Patient was seen in our ED earlier today for mental health issues. He was brought here by police without being pink slipped and was brought voluntarily to speak with a counselor. Noted that he has had several life stressors over the past week that have been difficult for him. He was able to be discharged home around midday. However, he came back in this evening noting that he wanted assistance with detox off opiates. In the ED he was hemodynamically stable on room air at rest. CBC and CMP were benign. UDS positive for fentanyl, amphetamines and cocaine. Patient reports last use was 2 days ago. Given desire for detox, hospitalist was contacted for admission. I saw the patient at bedside in the ED, 2 family members were present. Patient had a somewhat depressed mood but was otherwise sitting back comfortably in bed, answering questions appropriately, in no acute distress. Denied any withdrawal symptoms currently. Denies any pain or discomfort. No other acute concerns currently. Will be admitted for further management. [facility] Medical History (Updated 12/13/24 @ 18:32 by Nabil Grant MD) Amputated finger Medical History no medical history Home Medications ?Medication ?Instructions ?Recorded ?Last Taken ?Type NK 12/13/24 Unknown History Allergy/AdvReac Type Severity Reaction Status Date / Time tramadol Allergy SEIZURE Verified 12/13/24 16:05 Family History no significant family his Surgical History (Updated 12/13/24 @ 16:45 by Genesis Duenas) H/O eye surgery Surgical History no surgical history Social History Smoking Status: Heavy Smoker (>10/day) ROS Constitutional Constitutional: Denies chills, fatigue, fever(s) or weakness Cardiovascular Cardiovascular: Denies chest pain Respiratory/Chest Respiratory/Chest: Denies shortness of breath at rest Gastrointestinal Gastrointestinal: Denies abdominal pain, nausea or vomiting Vital Signs Vital Signs Vital Signs: 12/13/24 16:05 12/13/24 18:05 Temperature 98.1 F Temperature Source Oral Pulse Rate 106 H 88 Respiratory Rate 16 23 H Blood Pressure 133/93 H 132/78 H Blood Pressure Mean 106 96 Pulse Ox 99 98 Oxygen Delivery Method Room Air Weight Weight: 71.668 kg Body Mass Index (BMI) 24.7 Physical Exam Const alert, oriented x3, no apparent distress and average body habitus Constitutional Narrative: Middle-age male, mildly depressed mood but otherwise sitting back comfortably in bed, conversing normally, in no acute distress. General Appearance: cooperative and comfortable HEENT normocephalic, head/scalp atraumatic, hearing grossly normal bilaterally, nasal mucous membranes and turbinates normal and moist oral mucous membranes Eyes PERRL, EOMs intact bilaterally and conjunctivae normal Neck full ROM Chest inspection of chest normal Resp normal respiratory effort, normal air movement, no use of accessory muscles and clear to auscultation bilaterally Cardio regular rate, regular rhythm, no murmurs and peripheral pulses 2+ throughout GI normal to inspection, nondistended, normoactive bowel sounds, soft to palpation, non-tender and non-distended Back/Spine normal ROM Extremity normal to inspection, full ROM and no pedal edema Skin no rashes or lesions noted Psych mental status grossly normal Mood & Affect: depressed Results Lab / Micro Data 12/13/24 17:30 12/13/24 17:30 Labs: Laboratory Results - last 24 hr 12/13/24 17:30: WBC 8.4, RBC 4.91, Hgb 15.9, Hct 44.6, MCV 90.8, MCH 32.4 H, MCHC 35.7, RDW Std Deviation 43.6, RDW Coeff of Beth 13.1, Plt Count 226, MPV 9.1, Immature Gran % (Auto) 0.100, Neut % (Auto) 68.9, Lymph % (Auto) 21.1, [place] % (Auto) 7.3, Eos % (Auto) 2.2, Baso % (Auto) 0.4, Absolute Neuts (auto) 5.8, Absolute Lymphs (auto) 1.76, Nucleated RBC % 0, Sodium 141, Potassium 4.0, Chloride 104, Carbon Dioxide 24.6, Anion Gap 13, BUN 9, Creatinine 1.03, Estim Creat Clear Calc 86.46, Est GFR (MDRD) Non-Af 92, BUN/Creatinine Ratio 9.0 L, G lucose 117 H, Calcium 9.1, Total Bilirubin 0.51, AST 26, ALT 17, Alkaline Phosphatase 61, Total Protein 6.5, Albumin 4.1, Globulin 2.4, Albumin/Globulin Ratio 1.7, Urine Opiates Screen NEGATIVE, U Buprenorphine Qual NEGATIVE, Ur Oxycodone Screen NEGATIVE, Urine Methadone Screen NEGATIVE, Urine Fentanyl Screen PRESUMPTIVE POSITIVE, Ur Barbiturates Screen NEGATIVE, Ur Phencyclidine Scrn NEGATIVE, Ur Amphetamines Screen PRESUMPTIVE POSITIVE, U Benzodiazepines Scrn NEGATIVE, Urine Cocaine Screen PRESUMPTIVE POSITIVE, U Cannabinoids Screen NEGATIVE, Ethyl Alcohol < 10.1 Assessment & Plan Assessment/Plan (1) Mild fentanyl abuse: (2) Methamphetamine abuse: (3) Desire for detoxification: (4) Depressed mood: PLAN: Plan Patient is a 44-year-old male who presented to [facility] ED on 12/13/2024 for opiate detox. 1. Polysubstance abuse with desire for opiate detoxification ? Admit under inpatient status to [facility]. Case management consulted. Reports snorting fentanyl and methamphetamines 3-4 times per week, last used 2 days ago. Has been doing this for many years. Has never been through detox before. Orders placed per open withdrawal order set. Patient requested not to be placed on buprenorphine taper at this time. Appreciate case management recommendations. 2. Depressed mood ? Patient seen in the ED on morning of 12/13 for depressed mood due to several life stressors. Can consider initiating low-dose SSRI if patient desires this. Recommend close outpatient follow-up and counseling on discharge. DVT prophylaxis: Lovenox CODE STATUS: Full code, verified Expected disposition: TBD Total clinical time spent by myself addressing the patient's medical issues, reviewing all the data, and collaborating with patient's care team: 40 minutes. Charges/Coding Visit Charges Inpatient E&M: 18855 Init Hosp L1
[2024-12-13 18:39] VITALS: BP 132/78; PULSE 88; RESP 23; TEMP 36.7; O2SAT 98
--- OUTSIDE RECORDS SUMMARY | 2024-12-13 18:52 | XMS RPT_ITS | CCD ---
Author Organization [facility] Care Team Providers Care Public Health Staff Nurse Name Role Phone MILLIE POP, DR DAVIES [...] sources) cyclobenzaprine; Translations: [cyclobenzaprine] Drug Allergy 03-30-2013 [facility] (6 sources) Methylphenidate; Translations: [methylphenidate] Drug Allergy [facility] (9 sources) traMADol; Translations: [tramadol] Drug Allergy 03-30-2013 SEIZURE [facility] Medications Current Medications Medication Drug Class(es) [...] Anesthetic Start: 02-10-2022 End: 02-10-2022 lidocaine-EPINEPHrine 1 %-1:[id number] injection 20 mL Problems Problem Classification Problem [...] Main on 12-13-2024 Ethanol [Mass/Vol] mg/dL <10.1 [facility] Comment on above: This test is for [...] 10/13/2024 8:05:08 PM Ordering Provider: DIEGO KIMBERLY [facility] UFENTSon 10-28-2023 Fentanyl (u) Positive Abnormal Negative [facility] ([place]) Comment on above: Result Comment: Test ing has been performed FOR MEDICAL PURPOSES ONLY. Performed By: #### U VIC BALDWIN #### [facility] [address] [place] [id number] #### UDRUG #### [address] [address] UOXYSon 10-28-2023 Oxycodone (u) Negative Normal Negative [facility] ([place]) Comment on above: Result Comment: Test ing has been performed FOR MEDICAL PURPOSES ONLY. Performed By: #### U VIC BALDWIN ####[facility] [place] [id number]#### UDRUG ####[address] [address] .Auto Diffon 10-27-2023 Basophil, Absolute 0.0 10 3/mcL Normal 0.0-0.2 [facility] ([place]) Comment on above: Performed By: #### B EDWIN DELGADO, CBC, ADIFF, GFR, ANEU #### [address] [address] Basophils/100 WBC (Bld) 0.5 % Normal 0.0-2.5 [facility] ([place]) Comment on above: Performed By: #### B MD DANNYW, CBC, ADIFF, GFR, ANEU #### [address] [address] Eosinophil, Absolute 0.3 10 3/mcL Normal 0.0-0.4 [facility] ([place]) Comment on above: Performed By: #### B MD DANNYW, CBC, ADIFF, GFR, ANEU #### [address] [address] Eosinophils/100 WBC (Bld) 3.9 % Normal 0.0-7.0 [facility] ([place]) Comment on above: Performed By: #### B DANNY, W, CBC, ADIFF, GFR, ANEU #### [address] [address] Lymphocyte, Absolute 1.8 10 3/mcL Normal 0.8-3.9 [facility] ([place]) Comment on above: Performed By: #### B EDWIN DELGADO, CBC, ADIFF, GFR, ANEU #### [address] [address] Lymphocytes/100 WBC (Bld) 23.0 % Normal 10.0-50.0 [facility] ([place]) Comment on above: Performed By: #### B EDWIN DELGADO, CBC, ADIFF, GFR, ANEU #### [address] [address] Monocyte, Absolute 0.7 10 3/mcL Normal 0.2-1.0 [facility] ([place] Comment on above: Performed By: #### B EDWIN DELGADO, CBC, ADIFF, GFR, ANEU #### [address] [address] Monocytes/100 WBC (Bld) 9.7 % Normal 1.7-13.0 [facility] ([place]) Comment on above: Performed By: #### B EDWIN DELGADO, CBC, ADIFF, GFR, ANEU #### [address] [address] Neutrophils/100 WBC (Bld) 62.9 % Normal 37.0-80.0 [facility] ([place]) Comment on above: Performed By: #### B EDWIN DELGADO, CBC, ADIFF, GFR, ANEU #### [address] [address] .GFRon 10-27-2023 GFR 93 ml/min/1.73sqm Normal [facility] ([place]) Comment on above: Result Comment: GFR [...] DANNY, W, CBC, ADIFF, GFR, ANEU #### [address] [address] GFR Non- 77 ml/min/1.73sqm Normal [facility] ([place]) Comment on above: Result Comment: GFR Population [...] DANNY, W, CBC, ADIFF, GFR, ANEU #### [address] [address] .MDWon 10-27-2023 Monocyte Distribution Width 15.66 Normal 0.00-20.00 [facility] ([place]) Comment on above: Result Comment: For ED adult patients suspected of sepsis, MDW<=20.0 does not rule out sepsis or risk of sepsis Performed By: #### B DANNY, W, CBC, ADIFF, GFR, ANEU #### [address] [address] .NEUABSon 10-27-2023 Neutrophil, Absolute 4.9 10 3/mcL Normal 2.9-6.2 [facility] ([place]) Comment on above: Performed By: #### B DANNY, W, CBC, ADIFF, GFR, ANEU #### [address] [address] Abena 10-27-2023 Ethanol Level <3 Normal 0-3 [facility] ([place]) Comment on above: Performed By: #### A LC #### [address] [address] BMPon 10-27-2023 BUN/Creatinine Ratio 15 ratio Normal 7-27 [facility] ([place]) Comment on above: Performed By: #### B EDWIN DELGADO, CBC, ADIFF, GFR, ANEU #### [address] [address] Calcium [Mass/Vol] 9.0 mg/dL Normal 8.4-10.2 [facility] ([place]) Comment on above: Performed By: #### B EDWIN DELGADO, CBC, ADIFF, GFR, ANEU #### [address] [address] Chloride [Moles/Vol] 104 mmol/L Normal 98-107 [facility] ([place]) Comment on above: Performed By: #### B EDWIN DELGADO, CBC, ADIFF, GFR, ANEU #### [address] [address] CO2 [Moles/Vol] 35 mmol/L High 22-29 [facility] ([place]) Comment on above: Performed By: #### B EDWIN DELGADO, CBC, ADIFF, GFR, ANEU #### [address] [address] Creatinine [Mass/Vol] 1.06 mg/dL Normal 0.70-1.30 [facility] ([place]) Comment on above: Performed By: #### B EDWIN DELGADO, CBC, ADIFF, GFR, ANEU #### [address] [address] Electrolyte Balance 4.0 mEq/L Normal 4.0-15.0 [facility] ([place]) Comment on above: Performed By: #### B EDWIN DELGADO, CBC, ADIFF, GFR, ANEU #### [address] [address] Glucose [Mass/Vol] 132 mg/dL High 70-105 [facility] ([place]) Comment on above: Performed By: #### B EDWIN DELGADO, CBC, ADIFF, GFR, ANEU #### [address] [address] Potassium [Moles/Vol] 4.0 mmol/L Normal 3.5-5.1 [facility] ([place]) Comment on above: Performed By: #### B EDWIN DELGADO, CBC, ADIFF, GFR, ANEU #### [address] [address] Sodium [Moles/Vol] 143 mmol/L Normal 136-145 [facility] ([place]) Comment on above: Performed By: #### B EDWIN DELGADO, CBC, ADIFF, GFR, ANEU #### [address] [address] Urea nitrogen [Mass/Vol] 16 mg/dL Normal 7-18 [facility] ([place]) Comment on above: Performed By: #### B EDWIN DELGADO, CBC, ADIFF, GFR, ANEU #### [address] [address] CBCon 10-27-2023 Erythrocyte distribution width (RBC) [Ratio] 13.7 % Normal 11.5-14.5 [facility] ([place]) Comment on above: Performed By: #### B EDWIN DELGADO, CBC, ADIFF, GFR, ANEU #### [address] [address] Hematocrit (Bld) [Volume fraction] 39.5 % Low 42.0-52.0 [facility] ([place]) Comment on above: Performed By: #### B EDWIN DELGADO, CBC, ADIFF, GFR, ANEU #### [address] [address] Hgb 13.8 G/dL Low 14.0-18.0 [facility] ([place]) Comment on above: Performed By: #### B EDWIN DELGADO, CBC, ADIFF, GFR, ANEU #### [address] [address] MCH (RBC) [Entitic mass] 32.3 pg High 27.0-31.2 [facility] ([place]) Comment on above: Performed By: #### B EDWIN DELGADO, CBC, ADIFF, GFR, ANEU #### [address] [address] MCHC 34.8 G/dL Normal 31.8-35.4 [facility] ([place]) Comment on above: Performed By: #### B EDWIN DELGADO, CBC, ADIFF, GFR, ANEU #### [address] [address] MCV (RBC) [Entitic vol] 92.8 fL Normal 80.0-94.0 [facility] ([place]) Comment on above: Performed By: #### B EDWIN DELGADO, CBC, ADIFF, GFR, ANEU #### [place] [address] Platelet 201 10 3/mcL Normal 130-400 [facility] ([place]) Comment on above: Performed By: #### B EDWIN DELGADO, CBC, ADIFF, GFR, ANEU #### [place] [address] Platelet mean volume (Bld) [Entitic vol] 6.8 fL Low 7.4-10.4 [facility] ([place]) Comment on above: Performed By: #### B EDWIN DELGADO, CBC, ADIFF, GFR, ANEU #### [address] [address] RBC 4.26 10 6/mcL Normal 4.04-6.13 [facility] ([place]) Comment on above: Performed By: #### B EDWIN DELGADO, CBC, ADIFF, GFR, ANEU #### [address] [address] WBC 7.7 10 3/mcL Normal 4.6-10.8 [facility] ([place]) Comment on above: Performed By: #### B EDWIN DELGADO, CBC, ADIFF, GFR, ANEU #### [address] [place], [place] [address] LABORATORYOrdered By: Aurea Morocho on 10-27-2023 Amphetamines [...] UDRUGon 10-27-2023 Amphetamine (u) Negative Normal Negative [facility] ([place]) Comment on above: Performed By: #### U FENTS, UOXYS #### [place] [address] #### UDRUG #### [address] [address] Barbiturate (u) Negative Normal Negative [facility] ([place]) Comment on above: Performed By: #### U FENTS, UOXYS #### [place] [address] #### UDRUG #### [address] [address] Benzodiazepine (u) Negative Normal Negative [facility] ([place]) Comment on above: Performed By: #### U FENTS, UOXYS #### [place] [address] #### UDRUG #### [address] [address] Cannabinoid (u) Negative Normal Negative [facility] ([place]) Comment on above: Performed By: #### U FENTS, UOXYS #### [place] [address] #### UDRUG #### [address] [address] Cocaine Ql (U) Negative Normal Negative [facility] ([place]) Comment on above: Performed By: #### U FENTS, UOXYS #### [place] [address] #### UDRUG #### [address] [address] Methadone Ql (U) Negative Normal Negative [facility] ([place]) Comment on above: Performed By: #### U NIDIAS UOXYS #### [address] [address] #### UDRUG #### [place] [id number] Opiate (u) Negative Normal Negative [facility] ([place]) Comment on above: Performed By: #### U FENTS, UOXYS #### [address] [address] #### UDRUG #### [address] [address] PCP (u) Negative Normal Negative [facility] ([place]) Comment on above: Performed By: #### U NIDIAS UOXYS #### [place] [address] #### UDRUG #### [place] [address] Urine Drugs screened: See Below Normal [facility] ([place]) Comment on above: Result [...] Performed By: #### U FENTS UOXYS #### [place] [address] #### UDRUG #### [place] [id number] XR ANKLE MINIMUM 3 VIEWS RIG [facility] 03-28-2023 XR ANKLE MINIMUM 3 VIEWS RIGHT [...] 03/28/2023 11:37:19 AM Ordering Provider: DEEPTI Kwon [facility] ([place]) CT Head or Brain w/o Lili marmolejo 02-10-2022 CT Head or Brain w/o Contrast [facility]: [id number] Comput[facility] Tomography ACCESSION EXAM DATE/TIME PROCEDURE ORDERING PROVIDER [id number] 02/10/2022 05:[address] Head or Brain w/o [id number] -KIBE, BEENA Contrast CPT code 43923 Reason For Exam (CT Head or Brain [...] Transcribed Date and Time: 02/10/2022 6:09 Normal [facility] CT Maxillofacial w/o Contras ton 02-10-2022 CT Maxillofacial w/o Contrast Patient Name: OSMAN OMALLEY Computed Tomography ACCESSION EXAM DATE/TIME PROCEDURE ORDERING PROVIDER [id number] 02/10/2022 05:[address] Maxillofacial w/o [id number] -KIBE, BEENA Contrast CPT code 01004 Reason For Exam (CT Maxillofacial w/o Contrast) [...] Transcribed Date and Time: 02/10/2022 6:09 Normal [facility] ED Provider Noteon 2 ED Provider Note [facility] ED EMERGENCY DEPARTMENT ENCOUNTER Pt Name: [...] for evaluation for a fall with a buddhism to the forehead. Patient states got lightheaded [...] Not Currently Comment: unable to assess SCREENINGS [place] Coma Scale Eye Opening: Spontaneous Best Verbal Response: Oriented Best Motor Response: Obeys commands [place] Coma Scale Score: 15 PHYSICAL EXAM (up [...] Palpations: Abdome (more content not included)... Normal [facility] No Panel Informationon 02-10 Beena Brown MD 02/10/2022 7:56 AM [facility] Date/Time: 02/10/2022 7:51 AM Performed by: Beena Brown MD Authorized by: Beena Brown MD Consent: Consent obtained: Verbal Consent given by: Patient Risks, benefits, and alternatives were discussed: yes Risks discussed: Infection, poor cosmetic result, pain, retained foreign body, poor wound healing and need for additional repair Lefor protocol: Patient identity confirmed: Verbally with patient [...] [facility] Work Phone: [facility]: [id number] Computed Tomography ACCESSION EXAM DATE/TIME PROCEDURE ORDERING PROVIDER [id number] 02/10/2022 05:[address] Head or Brain w/o 902745 -KIBE, BEENA Contrast CPT code 65209 Reason For Exam (CT Head or Brain [...] Date and Time: 02/10/2022 6:09 [facility] Minesh Munoz MD - 02/10/2022 Patient [facility]: [id number] Computed Tomography ACCESSION EXAM DATE/TIME PROCEDURE ORDERING PROVIDER [id number] 02/10/2022 05:[address] Head or Brain w/o 413580 -KIBE, BEENA Contrast CPT code 52894 Reason For Exam (CT Head or Brain [...] [facility] Work Phone: Patient Name: [facility] [id number] Computed Tomography ACCESSION EXAM DATE/TIME PROCEDURE ORDERING PROVIDER [id number] 02/10/2022 05:[address] Maxillofacial w/o 592483 -KIBE, BEENA Contrast CPT code 98673 Reason For Exam (CT Maxillofacial w/o Contrast) [...] JASON Transcribed Date and Time: 02/10/2022 6:09 [facility] Minesh Munoz MD - 02/10/2022 Patient Name: OSMAN OMALLEY Computed Tomography ACCESSION EXAM DATE/TIME PROCEDURE ORDERING PROVIDER [id number] 02/10/2022 05:[address] Maxillofacial w/o [id number] -KIBE, BEENA Contrast CPT code 92726 Reason For Exam (CT Maxillofacial w/o Contrast) [...] Panel InformationOrdered By: Minesh Munoz on 02-10-2022 [facility] Work Phone: LABORATORYOrdered By: Faby Lackey on [...] [degF] Dr. Matthew Main MD Work Phone: 3(060)[phone] [place] [address] 12-13-2024 10:43-0400 Diastolic blood pressure 93 mm[Hg] Dr. Matthew Main MD Work Phone: 4(901)[phone] [place] [address] 12-13-2024 10:43-0400 Heart rate 78 /min Dr. Matthew Main MD Work Phone: 1(885)444-167292 [place] [address] 12-13-2024 10:43-0400 Respiratory rate 16 /min Dr. Matthew Main MD Work Phone: 9(324)515-684492 [place] [address] 12-13-2024 10:43-0400 SaO2% (BldA) [Mass fraction] 99 % Dr. Matthew Main MD Work Phone: 6(344)[phone] [place] [address] 12-13-2024 10:43-0400 Systolic blood pressure 139 mm[Hg] Dr. Matthew Main MD Work Phone: 5(255)559-672040 [address] 12-13-2024 08:45-0400 Body height 170.[address] Matthew Main MD Work Phone: 4(824)[phone] [place] [address] 12-13-2024 08:45-0400 Body mass index (BMI) [Ratio] 24.5 kg/m2 Dr. Matthew Main MD Work Phone: 4(504)[phone] [place] [address] 12-13-2024 08:45-0400 Body weight 70.[address] Matthew Main MD Work Phone: [facility] 10-27-2023 22:11-0400 Diastolic Blood Pressure Non-Invasive 88 mm[Hg] VITALY VILLARREAL MD [facility] 10-27-2023 22:11-0400 Heart rate 86 /min VITALY VILLARREAL MD [facility] 10-27-2023 22:11-0400 Respiratory rate 16 /min VITALY VILLARREAL MD [facility] 10-27-2023 22:11-0400 Systolic Blood Pressure Non-Invasive 130 mm[Hg] VITALY VILLARREAL MD [facility] 10-27-2023 20:59-0400 Body temperature 98.78 [degF] VITALY VILLARREAL MD [facility] 10-27-2023 20:59-0400 Body weight 74.9 kg VITALY VILLARREAL MD [facility] 10-27-2023 20:59-0400 Diastolic Blood Pressure Non-Invasive 97 mm[Hg] VITALY VILLARREAL MD [facility] 10-27-2023 20:59-0400 Heart rate 93 /min VITALY VILLARREAL MD [facility] 10-27-2023 20:59-0400 Respiratory rate 16 /min VITALY VILLARREAL MD [facility] 10-27-2023 20:59-0400 Systolic Blood Pressure Non-Invasive 157 mm[Hg] VITALY VILLARREAL MD [facility] 03-28-2023 11:05-0500 Body temperature 98.6 [degF] DR DEEPTI CASTILLO MD [facility] 03-28-2023 11:05-0500 Body weight 72.[address] DEEPTI CASTILLO MD [facility] 03-28-2023 11:05-0500 Diastolic Blood Pressure Non-Invasive 80 mm[Hg] DR DEEPTI CASTILLO MD [facility] 03-28-2023 11:05-0500 Heart rate 99 /min DR DEEPTI CASTILLO MD [facility] 03-28-2023 11:05-0500 Respiratory rate 16 /min DR DEEPTI CASTILLO MD [facility] 03-28-2023 11:05-0500 Systolic Blood Pressure Non-Invasive 109 mm[Hg] DR DEEPTI CASTILLO MD [facility] 02-10-2022 04:43-0400 Body mass index (BMI) [Ratio] 24.37 kg/m2 Beena Brown MD Work Phone: [facility] 02-10-2022 04:43-0400 Body weight 74.84 kg Beena Brown MD Work Phone: [facility] 02-10-2022 04:42-0400 Body temperature 98.29 [degF] Beena Brown MD Work Phone: [facility] 02-10-2022 04:42-0400 Diastolic blood pressure 91 mm[Hg] Beena Brown MD Work Phone: [facility] 02-10-2022 04:42-0400 Heart rate 73 /min Beena Brown MD Work Phone: [facility] 02-10-2022 04:42-0400 Respiratory rate 16 /min Beena Brown MD Work Phone: [facility] 02-10-2022 04:42-0400 SaO2% (BldA) [Mass fraction] 99 % Beena Brown MD Work Phone: [facility] 02-10-2022 04:42-0400 Systolic blood pressure 136 mm[Hg] Beena Brown MD Work Phone: [facility] 01-27-2022 05:05-0400 Diastolic blood pressure 78 mm[Hg] NAZARIO ESQUIVEL MD [facility] 01-27-2022 05:05-0400 Mean blood pressure 95 mm[Hg] NAZARIO ESQUIVEL MD [facility] 01-27-2022 05:05-0400 Respiratory rate 20 /min NAZARIO ESQIUVEL MD [facility] 01-27-2022 05:05-0400 Systolic blood pressure 128 mm[Hg] NAZARIO ESQUIVEL MD [facility] 01-27-2022 03:06-0400 Body temperature 98.24 [degF] NAZARIO ESQUIVEL MD [facility] 01-27-2022 03:06-0400 Diastolic blood pressure 86 mm[Hg] NAZARIO ESQUIVEL MD [facility] 01-27-2022 03:06-0400 Heart rate 91 /min NAZARIO ESQUIVEL MD [facility] 01-27-2022 03:06-0400 Respiratory rate 20 /min NAZARIO ESQUIVEL MD [facility] 01-27-2022 03:06-0400 Systolic blood pressure 132 mm[Hg] NAZARIO ESQUIVEL MD [facility] 10-19-2021 17:14-0400 Body height 175.3 cm VITALY VILLARREAL MD [facility] 10-19-2021 17:14-0400 Body temperature 98.96 [degF] VITALY VILLARREAL MD [facility] 10-19-2021 17:14-0400 Body weight 77.3 kg VITALY VILLARERAL MD [facility] 10-19-2021 17:14-0400 Diastolic blood pressure 80 mm[Hg] VITALY VILLARREAL MD [facility] 10-19-2021 17:14-0400 Heart rate 100 /min VITALY VILLARREAL MD [facility] 10-19-2021 17:14-0400 Respiratory rate 24 /min VITALY VILLARREAL MD [facility] 10-19-2021 17:14-0400 Systolic blood pressure 131 mm[Hg] VITALY VILLARREAL MD [facility] 07-18-2021 09:38-0400 Body height 170.2 cm IRAIS HILTONT DO [facility] 07-18-2021 09:38-0400 Body temperature 97.7 [degF] IRAIS GALINDOMELT DO [facility] 07-18-2021 09:38-0400 Body weight 72.7 kg IRAIS FROMMELT DO [facility] 07-18-2021 09:38-0400 Diastolic blood pressure 98 mm[Hg] IRAIS FROMMELT DO [facility] 07-18-2021 09:38-0400 Heart rate 102 /min IRAIS FROMMELT DO [facility] 07-18-2021 09:38-0400 Respiratory rate 20 /min IRAIS SMITH DO [facility] 07-18-2021 09:38-0400 Systolic blood pressure 154 mm[Hg] IRAIS SMITH DO [facility] Encounters Encounter Date Encounter Type Care Provider Facility Start: 12-13-2024 End: 12-13-2024 Emergency department patient visit Dr. Matthew Main MD Work Phone: -Emergency Department Work Phone: Start: 10-13-2024 End: 10-13-2024 Emergency department patient visit DIEGO HARRIS MD [facility] Start: 10-27-2023 End: 10-27-2023 Emergency department patient visit VITALY VILLARREAL MD [facility] Start: 03-28-2023 End: 03-28-2023 Emergency department patient visit DR DEEPTI CASTILLO MD [facility] Start: 02-10-2022 End: 02-10-2022 Emergency department patient visit [facility] Start: 02-10-2022 End: 02-10-2022 Emergency department patient visit Beena Brown MD Work Phone: [facility] Comment on above: Facial laceration, i nitial encounter (Primary Dx) Start: 01-27-2022 End: 01-27-2022 Emergency department patient visit NAZARIO ESQUIVEL MD [facility] Start: 10-19-2021 End: 10-19-2021 Emergency department patient visit VITALY VILLARREAL MD [facility] Start: 07-18-2021 End: 07-18-2021 Emergency department patient visit IRAIS SMITH DO [facility] Procedures Date Procedure Procedure Detail Performing Clinician Start: 02-10-2022 LACERATION REPAIR Ana Brown MD Work Phone: Start: 02-10-2022 Ct head/brain w/o contrast material Beena Brown MD Work Phone: Amputated finger (finding) [facility] Congenital anomaly o f eye (disorder) [facility] Plan of Treatment Date Care Activity Detail Author Start: 11-07-2030 DTaP/Tdap/Td vaccine (2 - Td or Tdap) DTaP/Tdap/Td vaccine (2 - Td or Tdap) [facility] Start: 11-07-2025 Lipid panel Lipids [facility] Start: 12-13-2024 [facility] Start: 11-20-2021 Influenza vaccination Flu vaccine (#1) [facility] Start: 11-07-2021 Depression Screen Depression Screen [facility] Start: 1999 Hepatitis C screening Hepatitis C screen [facility] Start: 1996 HIV screening HIV screen [facility] Start: 1987 Pneumococcal 0-64 years Vaccine (1 - PCV) Pneumococcal 0-64 years Vaccine (1 - PCV) [facility] Start: 1981 COVID-19 Vaccine (#1) COVID-19 Vaccine (#1) [facility] Patient Education ED Depression [facility] Work Phone: Immunizations Immunization Date Immunization Notes Care Provider Fa cility 11-07-2020 tetanus toxoid, redu jasiel diphtheria toxoid, and acellular pertussis vaccine, adsorbed Beena Brown MD Work Phone: [facility] Payers Date Payer Category Payer Self-pay 1980 Unknown [id number] 1981 Unknown [id number] 1981 Unknown [id number] 1981 Unknown [id number] Social History Date Type Detail Facility Start: 12-07-2018 End: 03-28-2023 Tobacco smoking status Heavy tobacco smoker (finding) [facility] Sex Assigned At [facility] Start: 11-07-2020 End: 12-13-2024 Tobacco smoking status SCIS Smokes tobacco daily [facility] Start: 11-07-1997 History of tobacco use Cigarette Smo ker [facility] Work Phone: Start: 11-07-2020 Cigarettes smoked current (pack per day) - Reported 1 [facility] Work Phone: Start: 11-07-2020 Tobacco use and exposure Smokeless tobacco non-user [facility] Work Phone: Start: 02-10-2022 Alcohol intake Current drinke r of alcohol (finding) [facility] Work Phone: Start: 11-07-2020 End: 02-10-2022 History SDOH Alcohol Frequency 2 [facility] Work Phone: Start: 11-07-2020 End: 02-10-2022 History SDOH Alcohol Std Drinks 1 [facility] Work Phone: Start: 11-07-2020 History SDOH Physica l Activity DPW 7 [facility] Work Phone: Start: 11-07-2020 History SDOH Physica l Activity MPS 6 [facility] Work Phone: Start: 11-07-2020 History SDOH Financial 4 [facility] Work Phone: Start: 09-22-2016 Tobacco Comment unable to assess [facility] Work Phone: Start: 11-07-2020 Alcohol Comment [facility] Start: 1980 Sex Assigned At Not on file S [facility] Work Phone: Start: 01-31-2022 End: 02-10-2022 Exposure to SARS-CoV-2 (event) Not sure [facility] Work [facility]: Start: 12-15-2013 Sex Male (finding) [facility] Start: 1980 Sex Assigned At Male [facility] Functional Status Date Assessment Result Facility 10-27-2023 Functional Status Independent [facility] 10-27-2023 Functional Status Standard Safet y ID band on, Allergy Band on, Call device within reach, Bed in low position, Wheels locked, Upper/Half-Length side-rails up, Phone within reach, Safety level maintained [facility] 03-28-2023 Functional Status Standard Safet y ID band on, Call device within reach, Bed in low position, Wheels locked, Upper/Half-Length side-rails up, Bedside Cart Locked, Safety level maintained [facility] 01-27-2022 Functional Status Independent [facility] 01-27-2022 Functional Status Awake [facility] 07-18-2021 Functional Status [facility] Mental Status Date Assessment Result Facility 10-27-2023 Mental Status Orientation Oriented x 4 [facility] 10-27-2023 Mental Status [facility] 03-28-2023 Mental Status Orientation Oriented x 4 [facility] 01-27-2022 Mental Status Orientation Oriented x 4 [facility] 01-27-2022 [facility] [place] 07-18-[facility]21 [facility] [place] Clinical Notes 07-18-2021 to 12-13-2024 Note Date & Type Note Facility 12-13-2024 Discharge summary [facility] 10-13-2024 Hospital Discharge instructions Patient Education 10/13/2024 [...] the ears or bruising around the eyes 8056-5013 [employer]. [address] [place] [address]. All rights reserved. This information is not intended as a substitute for professional medical care. Always follow your healthcare professional's instructions. Follow Up Care 10/13/2024 18:43:59 With:KEKE PINTO Address: [address] [place] [address] Business (1) When:2-4 days Comments:Follow-up as needed.Tylenol or Advil for pain as needed.You are cleared to return to work without restrictions.Return to the ED if symptoms worsen. [facility] 10-13-2024 Note Discharge Instructions Thank you for allowing [facility] to assist you with your healthcare needs. [...] KEKE PINTO When:Within 2-4 days Where:[address], [place] [address] Business (1) Additional Information: Follow-up as needed. [...] the ears or bruising around the eyes 6903-8313 [employer]. [address] [place], [place] [address]. All rights reserved. This information is not intended as a substitute for professional medical care. Always follow your healthcare professional's instructions. Additional Information VACCINATE! IT SAVES LIVES! Members of the community who have not yet received the COVID-19 vaccine and would like to receive it can visit one of [facility] vaccine clinics. There are many vaccine clinic locations within the [facility]. For locations and available times, please visit www.gettheshot.[email or web address].[place].gov /. It is important to note that some COVID mobile vaccine clinics are held outdoors and may be canceled in rainy or stormy conditions. To learn more about pediatric vaccinations (ages 5-11), we invite you to visit the [facility] webpage. https://www.[facility].org/page s/6200-Slvas-Boqezxmhelc-Frequently -Asked-Questions.html To learn more about the COVID-19 vaccine, we invite you to visit the CDC website for a list of frequently asked questions. https://www.cdc.gov/coronavirus/201 9-ncov/vaccines/faq.html [facility] Patient Portal Access Instructions: Stay connected with your healthcare team and access your personal medical information anytime with the [facility] Patient Portal. If you would like a full copy of your medical records please contact the [facility] Medical Records Department Saturday through Saturday between 8a.m. and 4:30p.m. Please follow the directions below to access the portal: 1.Access the email account you provided upon registration to the [facility].2.Look for an invitation email from [facility].3.Open the email and access the invitation link: Accept Invitation to [facility]4.Fill in the required dan to create your account. Sign into [email or web address] with your username and password that you [...] you will allow to register on the [facility] Patient Portal for access to your information. You can also access the [facility] Patient Portal on the HealthPocket. Simply click on Health Records under Health Data and then click on the Binpress logo. HOW TO SAFELY DISPOSE OF PRESCRIPTION [...] Call your local pharmacy or go to http://[employer].Xfire/9Z6Sr4c to find one close to you.3.Make use of household items: Use cat litter or old coffee grounds to dispose medications if other options are not available. Mix your drugs with these household products, seal them in an airtight container and throw it into the garbage. Call [facility]: [phone] to be sure your drugs can be [...] aware that I should contact my doctor. Patient/Cnc Set Up Operator Signature: ____ Date/Time: Relationship to Patient: __ Witness Name/Signature: Date/Time: [facility] 10-13-2024 Note Exam Date Time Procedure Performing Provider Status 10/13/24 7:[address] Head or Brain w/o Contrast TIMI ROPER MD; Auth (Verified) [id number] ORIGINAL EXAMINATION: CT OF THE HEAD WITHOUT [...] Date: 10/13/2024 8:05:08 PM Ordering Provider: DIEGO [facility]07-08-2024 Hospital Discharge instructions Patient Education [...] away Iif symptoms of altered LOC return. 7891-0936 [employer]. [address] [place] [address], [place] [address]. All rights reserved. This information is not intended as a substitute for professional medical care. Always follow yourhealthcare professional's instructions. Follow Up Care 10/27/2023 20:43:34 With:KEKE PINTO MD Address: [address], [place] [address]- When:2-4 days [facility] 07-07-2024 Note Discharge Instructions Thank you for allowing [facility] to assist you with your healthcare needs. The following is importantdischarge information regarding your hospital visit. Diagnosis from Today's Visit Drowsiness What to Do Next Instructions from Your Care Team No qualifying data available. Post Acute Orders No qualifying data available. You Need to Schedule the Following Appointments Follow Up with KEKE PINTO MD When:Within 2-4 days Where:[address] [place] [address]- Allergies Flexeril Ritalin traMADol Medications Please ask [...] away Iif symptoms of altered LOC return. 0310-1371 [employer]. [address] [place] [address], [place] [address]. All rights reserved. This information is not intended as a substitute for professional medical care. Always follow yourhealthcare professional's instructions. Additional Information VACCINATE! IT SAVES LIVES! Members of the community who have not yet received the COVID-19 vaccine and would like to receive it can visit one of [facility] vaccine clinics. There are many vaccine clinic locations within the [facility]. For locations and available times, please visit www.gettheshot.[email or web address].[place].gov/. It is important to note that some COVID mobile vaccine clinics are held outdoors and may be canceled in rainy or stormy conditions. To learn more about pediatric vaccinations (ages 5-11), we invite you to visit the [facility] webpage. https://www.[facility].org/pages/1348-Summv-Mzcwcajcgoy-Eyqhocsnxk-Hfiev-Wmz stions.htmlTo learn more about the COVID-19 vaccine, we invite you to visit the CDC website for a list of frequently asked questions. https://www.cdc.gov/coronavirus/2019-ncov/vaccines/faq.html [facility] Patient Portal Access Instructions: Stay connected with your healthcare team and access your personal medical information anytime with the [facility] Patient Portal. If you would like a full copy of your medical records please contact the [facility] Medical Records Department Saturday through Saturday between 8a.m. and 4:30p.m. Please follow the directions below to access the portal: 1.Access the email account you provided upon registration to the hospital.2.Look for an invitation email from [facility].3.Open the email and access the invitation link: Accept Invitation to [facility]4.Fill in the required dan to create your account. Sign into [email or web address] with your username and password that you [...] you will allow to register on the [facility] Patient Portal for access to your information. You can also access the [facility] Patient Portal on the ViVi[employer] alexia. Simply click on Health Records under Issue and then click on the Binpress logo. HOW TO SAFELY DISPOSE OF PRESCRIPTION [...] Call your local pharmacy or go to http://[employer].Xfire/6Y0Xi0h to find one close to you.3.Make use of household items: Use cat litter or old coffee grounds to dispose medications if other options arenot available. Mix your drugs with these household products, seal them in an airtight container andthrow it into the garbage. Call [facility]: [phone] to be sure your drugs can be [...] aware that I should contact my doctor. Patient/Cnc Set Up Operator Signature: Date/Time: Relationship to Patient: Witness Name/Signature: Date/Time: [facility]07-07-[address] elev, probable normal early repol pattern Electronic Signature: VITALY VILLARREAL MD 10/27/2023 21:30:54[facility] 07-07-2024 Evaluation + Plan note Diagnostic Tests Pending * Fentanyl Screen, Urine 10/27/23 * Oxycodone Screen, Urine 10/27/23 [facility] 12-07-2023 Hospital Discharge instructions Patient Education [...] thin towel or cloth. You may use fgwa-gya-kznxiaw pain medicine (NSAIDS or nonsteroidal anti- inflammatory [...] or is irritated You re-injure your ankle 2403-8339 [employer]. [address] [place] [address], [place] [address]. All rights reserved. This information is not intended as a substitute for professional medical care. Always follow yourhealthcare professional's instructions. Follow Up Care 03/28/2023 10:55:05 With:JONI RAMIREZ Address: [address] [place] [address] [address] [place] [address] [phone] [employer] (1) When:2-4 days Comments:Return to ED if symptoms worsen With:KEKE PINTO MD Address: [address] [place] [address] When:2-4 days Comments:Return to ED if symptoms worsen [facility] 12-07-2023 Emergency department Discharge summary Discharge Instructions Thank you for allowing [facility] to assist you with your healthcare needs. [...] Return to ED if symptoms worsen Where: [address] [place] [address] [address] [place] [address] [phone] [facility] (1) Follow Up with KEKE PINTO MD When Within 2-4 days Why: Return to ED if symptoms worsen Where: [address] [place] [address]- Allergies Flexeril Ritalin traMADol Medications Please ask [...] thin towel or cloth. You may use ibes-hwh-mvjjpkl pain medicine (NSAIDS or nonsteroidal anti- inflammatory [...] or is irritated You re-injure your ankle 5724-6170 [employer]. [address] [place] [address], [place] [address]. All rights reserved. This information is not intended as a substitute for professional medical care. Always follow yourhealthcare professional's instructions. Additional Information VACCINATE! IT SAVES LIVES! Members of the community who have not yet received the COVID-19 vaccine and would like to receive it can visit one of [facility] vaccine clinics. There are many vaccine clinic locations within the [facility]. For locations and available times, please visit www.gettheshot.[email or web address].[place].gov/. It is important to note that some COVID mobile vaccine clinics are held outdoors and may be canceled in rainy or stormy conditions. To learn more about pediatric vaccinations (ages 5-11), we invite you to visit the [facility] webpage. https://www.[facility].org/pages/8502-Hjxac-Csxvfxvnhmg-Ucmfonuurt-Txpys-Gje stions.htmlTo learn more about the COVID-19 vaccine, we invite you to visit the CDC website for a list of frequently asked questions. https://www.cdc.gov/coronavirus/2019-ncov/vaccines/faq.html [facility] [facility] Patient Portal Access Instructions: Stay connected with your healthcare team and access your personal medical information anytime with the [facility] Patient Portal. If you would like a full copy of your medical records please contact the [facility] Medical Records Department Saturday through Saturday between 8a.m. and 4:30p.m. Please follow the directions below to access the portal: 1.Access the email account you provided upon registration to the [facility].2.Look for an invitation email from [facility].3.Open the email and access the invitation link: Accept Invitation to [facility]4.Fill in the required dan to create your [...] you will allow to register on the [facility] [facility] Patient Portal for access to your information. You can also access the [facility] Patient Portal on the HealthPocket. Simply click on Health Records under Issue and then click on the Reji logo. [...] Call your local pharmacy or go to http://[employer].Xfire/0Q5Ub7i to find one close to you.3.Make use of household items: Use cat litter or old coffee grounds to dispose medications if other options arenot available. Mix your drugs with these household products, seal them in an airtight container andthrow it into the garbage. Call [facility]: [phone] to be sure your drugs can be [...] aware that I should contact my doctor. Patient/Cnc Set Up Operator Signature: Date/Time: Relationship to Patient: Witness Name/Signature: Date/Time: [facility]12-07-2023 Note ORIGINAL EXAMINATION: THREE XRAY VIEWS [...] Sign Date: 03/28/2023 11:37:19 AM Ordering Provider: [facility]10-22-2022 Hospital Discharge instructions* Discharge Instructions* [facility] [...] through Care Everywhere. * Facial Laceration: Stitches (Slovak) * Lacerations: Adhesives (Slovak) documented in this encounterSUMMA Work Phone: [phone]) 808-769410-08-2022 Hospital Discharge instructions Patient Education 01/27/2022 04:55:29 [...] the smoke from others. You may use afxl-mia-dxzohqq acetaminophen or ibuprofen for fever, muscle aching, [...] body and be dangerous to your health. Oquy-mzb-uvswkvf remedies won't shorten the length of the [...] or as directed by your healthcare provider 7756-2208 [employer]. [address] [place] [address]. All rights reserved. This information is not [...] fluids will help loosen secretionsin the lungs. Hsbd-dyt-gitgglm cough medicines that contain dextromethorphan (such as [...] Lower leg swelling, tenderness, redness or pain 6157-8729 [employer]. [address] [place] [address]. All rights reserved. This information is not intended as a substitute for professional medical care. Always follow yourhealthcare professional's instructions. Follow Up Care 01/27/2022 02:59:11 With:KEKE PINTO MD Address: [address] [place] [address] When:2-4 days [facility] 10-08-2022 Note ORIGINAL EXAMINATION: TWO XRAY [...] Sign Date: 01/27/2022 5:12:37 AM Ordering Provider: [facility]10-08-2022 Note Discharge Instructions Thank you for allowing [facility] to assist you with your healthcare needs. [...] When Within 2-4 days Where: [address] [place] [address]- Allergies Flexeril Ritalin traMADol Medications Please ask [...] the smoke from others. You may use ucqn-srp-lgelgcv acetaminophen or ibuprofen for fever, muscle aching, [...] body and be dangerous to your health. Wjbl-azc-qtxftaf remedies won't shorten the length of the [...] or as directed by your healthcare provider 5187-5242 [employer]. [address] [place] [address], [place] [address]. All rights reserved. This information is not [...] fluids will help loosen secretionsin the lungs. Ltpc-oap-zgsfzup cough medicines that contain dextromethorphan (such as [...] Lower leg swelling, tenderness, redness or pain 0454-0454 [employer]. [address] [place] [address], [place] [address]. All rights reserved. This information is not intended as a substitute for professional medical care. Always follow yourhealthcare professional's instructions. Additional Information VACCINATE! IT SAVES LIVES! Members of the community who have not yet received the COVID-19 vaccine and would like to receive it can visit one of [facility] vaccine clinics. There are many vaccine clinic locations within the [facility]. For locations and available times, please visit www.[email or web address].org. It is important to note that some COVID mobile vaccine clinics are held outdoors and may be canceled in rainy orstormy conditions. To learn more about pediatric vaccinations (ages 5-11), we invite you to visit the [facility] webpage. https://www.[facility].org/pages/2898-Ykrga-Ckshkghdiwx-Zxgqxdabaw-Ivyia-Ntk stions.htmlTo learn more about the COVID-19 vaccine, we invite you to visit the [facility] website for a list of frequently asked questions. https://reji.org/assets/Nqbqwgml-yxk-Hpcibgaw/ayqxc-Ljuzgec-Zxclebzkjz _Asked-Questions.pdf [facility] [employer] [facility] Patient Portal Access Instructions: Stay connected with your healthcare team and access your personal medical information anytime with the [facility] Patient Portal. If you would like a full copy of your medical records please contact the [facility] Medical Records Department Saturday through Saturday between 8a.m. and 4:30p.m. Please follow the directions below to access the portal: 1.Access the email account you provided upon registration to the [facility].2.Look for an invitation email from [facility].3.Open the email and access the invitation link: Accept Invitation to [facility]4.Fill in the required dan to create your account. Sign into [email or web address] with your username and password that you [...] you will allow to register on the [facility] Patient Portal for access to your information. You can also access the [facility] Patient Portal on the HealthPocket. Simply click on Health Records under Issue and then click on the Binpress logo. HOW TO SAFELY DISPOSE OF PRESCRIPTION [...] Call your local pharmacy or go to http://bit.Xfire/0J9Wv6c to find one close to you.3.Make use of household items: Use cat litter or old coffee grounds to dispose medications if other options arenot available. Mix your drugs with these household products, seal them in an airtight container andthrow it into the garbage. Call [facility]: [phone] to be sure your drugs can be [...] aware that I should contact my doctor. Patient/Cnc Set Up Operator Signature: Date/Time: Relationship to Patient: Witness Name/Signature: Date/Time: [facility]10-08-2022 SARS-CoV-2 (COVID-19) RNA GLENIS+probe Ql (Nph)Negative *NA* (01/27/22 5:01 AM)AO Auto Urine [id number] Note ORIGINAL EXAMINATION: TWO XRAY VIEWS OF [...] Date: 01/27/2022 5:12:37 AM Ordering Provider: NAZARIO [facility]06-30-2022 Hospital Discharge instructions Patient Education 10/19/2021 [...] certain antibiotics, control pills, or the herb [place]'s wort. Check with your healthcare provider or [...] Reapply every few hours and after swimming. 4445-9538 [employer]. [address] [place] [address], [place] [address]. All rights reserved. This information is not [...] pain medicine was prescribed, you may use eczw-ywi-ysmzfek medicine to control pain. If you have [...] pick or scratch at the wound. Use rdjo-esx-fziokib medicines like diphenhydramine for itching. Avoid tight-fitting [...] appear to be healing Nausea or vomiting 7230-1629 [employer]. [address] [place] [address]. All rights reserved. This information is not intended as a substitute for professional medical care. Always follow yourhealthcare professional's instructions. Follow Up Care 10/19/2021 17:08:03 With:KEKE PINTO MD Address: [address] [place] [address]- When:2-4 days [facility] 06-30-2022 Note Discharge Instructions Thank you for allowing [facility] to assist you with your healthcare needs. [...] When Within 2-4 days Where: [address] [place] [address]- Allergies Flexeril Ritalin traMADol Medications Please ask [...] may report side effects to FDA at 4-360-SOL-8687. What other drugs will affect bacitracin? It is not likely that other drugs you take orally or inject will have an effect on topically applied bacitracin. But many drugs can interact with each other. Tell each of your health care providers about all medicines you use, including prescription and hoxu-nui-bjyubeh medicines, vitamins, and herbal products. Where can I get more information? Your pharmacist can provide more information about bacitracin topical. Remember, keep this and all other medicines out of the reach of children, never share your medicines with others, and use this medication only for the indication prescribed. Every effort has been made to ensure that the information provided by [employer]. ('[employer]') is accurate, up-to-date, and complete, but no guarantee is made to that effect. Drug information contained herein may be time sensitive. [employer] information has been compiled for use by healthcare practitioners and consumers in the [place] and therefore [employer] does not warrant that uses outside of the [place] are appropriate, unless specifically indicated otherwise. [employer] drug information does not endorse drugs, diagnose patients or recommend therapy. [employer] drug information isan informational resource designed to [...] effective or appropriate for any given patient. [employer] does not assume any responsibility for any aspect of healthcare administered with the aid of information [employer] provides. The information contained herein is not intended to cover all possible uses, directions, precautions, warnings, drug interactions, allergic reactions, or adverse effects. If you have questions about the drugs you are taking, check with your doctor, nurse or pharmacist. Copyright 5226-3265 [employer]. Version: 3.01. Revision Date: 01/19/2015. Education Materials [...] certain antibiotics, control pills, or the herb [place]'s wort. Check with your healthcare provider or [...] Reapply every few hours and after swimming. 4887-2500 [employer]. [address] [place] [address]. All rights reserved. This information is not [...] pain medicine was prescribed, you may use uvaa-kxc-syymwys medicine to control pain. If you have [...] pick or scratch at the wound. Use cqon-ewl-sblrcjl medicines like diphenhydramine for itching. Avoid tight-fitting [...] appear to be healing Nausea or vomiting 7522-8002 [employer]. [address] [place] [address]. All rights reserved. This information is not intended as a substitute for professional medical care. Always follow yourhealthcare professional's instructions. Additional Information VACCINATE! IT SAVES LIVES! Members of the community who have not yet received the COVID-19 vaccine and would like to receive it can visit one of [facility] vaccine clinics. There are many vaccine clinic locations within the [facility]. For locations and available times, please visit www.[email or web address].org. It is important to note that some COVID mobile vaccine clinics are held outdoors and may be canceled in rainy orstormy conditions. To learn more about pediatric vaccinations (ages 5-11), we invite you to visit the [facility] webpage. https://www.[facility].org/pages/5916-Fhrub-Lqpucviyoxd-Psbmlqtxja-Korue-Glr stions.htmlTo learn more about the COVID-19 vaccine, we invite you to visit the [facility] website for a list of frequently asked questions. [email or web address]://[email or web address]/assets/Iuwrffsb-ygp-Mqurcmch/jzljk-Tmezmws-Fbtzvrfpyp _Asked-Questions.pdf [facility] [employer] [facility] Patient Portal Access Instructions: Stay connected with your healthcare team and access your personal medical information anytime with the [facility] [employer] Patient Portal. If you would like a full copy of your medical records please contact the [facility] Medical Records Department Saturday through Saturday between 8a.m. and 4:30p.m. Please follow the directions below to access the portal: 1.Access the email account you provided upon registration to the [facility].2.Look for an invitation email from [facility].3.Open the email and access the invitation link: Accept Invitation to [facility].Fill in the required dan to create your [...] you will allow to register on the [facility] Patient Portal for access to your information. You can also access the [facility] Patient Portal on the [employer]. Simply click on Health Records under Issue and then click on the [place] logo. HOW TO SAFELY DISPOSE OF PRESCRIPTION [...] Call your local pharmacy or go to [email or web address] to find one close to you.3.Make use of household items: Use cat litter or old coffee grounds to dispose medications if other options arenot available. Mix your drugs with these household products, seal them in an airtight container andthrow it into the garbage. Call [facility]: [phone] to be sure your drugs can be [...] aware that I should contact my doctor. Patient/Cnc Set Up Operator Signature: Date/Time: Relationship to Patient: Witness Name/Signature: Date/Time: [facility]03-29-2022 Hospital Discharge instructions Patient Education 07/18/2021 10:09:15 Knee Pain of Uncertain Cause Knee Pain with Uncertain Cause There are several common causes for knee pain. These can include: A sprain of the ligaments that support the joint An injury to the cartilage lining of the joint Arthritis from skul-kca-wzud or inflammation There are other causes as [...] heat. If you have to wear a ldkn-wnk-vzhp knee brace, you can open it to apply the ice pack, or heat, directly to the knee. Never put ice directly on the skin. Always wrap the ice in atowel or other type of cloth. You may use vusa-igo-vlzcfkj pain medicine to control pain, unless another [...] full work duties. If you have a wnku-hjw-dcyx knee brace, you can remove it to [...] as directed by your healthcare provider Darrin [phone] [employer]. [address] [place] [address], [place] [address]. All rights reserved. This information is not intended as a substitute for professional medical care. Always follow yourhealthcare professional's instructions. Follow Up Care 07/18/2021 09:32:32 With:DO VAIBHAV BILLINGSLEY DO Address: [address] [place] [address] [address] [place] [address] When:2-4 days [facility] Discharge summary Author Matthew Main [facility] Note Date/Time December 13, 2024 10 :34am 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 He is brought here by police without being pink slipped, voluntarily to talk to a counselor. States this all really started 6 days ago or so when he [place] [facility] [place] his cars wheel [...] Italia Cardozo DO [Non-Staff] - Print Language: Slovak Disposition Disposition: Home, Self Care What to do if you have Problems For any increased pain, shortness of breath, bleeding, nausea or vomiting, chestpain, or any unexpected problems, contact your Primary Care Provider. Call [facility] ([phone]) or report to the closest Emergency Room. Call 911 if necessary. 12/13/24 1034 <Electronically signed by Matthew Main MD> Cosigner Signature (if applicable): CC: No Primary Care Physician ~ Signed [facility] Work Phone: Evaluation + Plan note No data available for this section [facility] Evaluation note* Diagnosis Facial laceration, initial encounter- Primary documented in this encounter [facility] Work Phone: Evaluation noteNo assessment information available [facility] Work Phone: Progress note No data available for this section [facility] Reason for referral (narrative)No reason for referral information [facility] Work Phone: Summary Purpose Family History No Family History Records Found No data available for this section No data available for this section No Family History Records Found No data available for this section No Family History Records Found Advance Directives Advance Directive Response Recorded Date/ Time Do you have a Healthcare Power of Service Counter Cashier? No December 13, 2024 8:59am Chief Complaint and Reason for Visit Chief Complaint Admit Date MENTAL HEALTH December 13, 2024 8: 45am Additional Source Comments Care Team (unrecognized sect ion and content) Public Health Staff Nurse Relationship Specialty Start Date End Date Keke Pinto MD [address] [facility], [place] [address] PCP - General Family Medicine 11/07/20 Team [...] Care Team Personnel Name: KEKE PINTO MD [facility] Service: Family Practice Member Role: Primary Care Physician Address: Address: [address] [place] [address] Care Team Related Persons Name: [facility] Address: Home [address] Care Team Personnel Name: KEKE PINTO MD [facility] Service: Family Practice Member Role: Primary Care Physician Address: Address: [address] [place] [address] Care Team Related Persons Name: July Address: Home [address] Reason for Visit (unrecogniz ed section [...] Provid er: Marlyn Calloway RN) lidocaine-EPINEPHrine 1 %-[id number] injection 20 mL (COMPLETED) 20 mL, IntraDERmal, ONCE, 1 dose, On 02/10/22 at 0528 0641 (Given - Provid er: Christine Graf RN) (unrecognized sect ion and content) No Status Records FoundNo Status Records FoundNo Status Records Found INFORMATION SOURCE (unrecogn ized section and content) DATE CREATED AUTHOR 02/13/2022 [facility] DATE CREATED AUTHOR AUTHOR'S ORGANIZ ATION 11/10/2023 [facility] ([place]) DATE CREATED AUTHOR AUTHOR'S ORGANIZ ATION 10/17/2024 [facility] Goals (unrecognized section and content) Goals may [...] BE BASED ON THE PRIMARY CLINICAL RECORDS. [employer] [facility]. provides no warranty or guarantee of the accuracy or completeness of information in this document.
[2024-12-13 19:54] VITALS: BP 132/89; PULSE 89; RESP 16; TEMP 36.8; O2SAT 97; BMI 22.9
[2024-12-14 04:52] VITALS: BP 141/89; PULSE 82; RESP 14; TEMP 36.4; O2SAT 97
[2024-12-14 09:23] VITALS: BP 135/81; PULSE 84; RESP 16; TEMP 37.1; O2SAT 97
--- NOTE | 2024-12-14 11:29 | ADDICTION ---
Met with patient to complete RAMP Assessments. Pt is debating on residential treatment. We will revisit this tomorrow morning.
--- NOTE | 2024-12-14 12:07 | PN.HOSP_ITS ---
Reason for Visit Chief Complaint: Opiate detox Subjective Subjective Patient was seen and examined today, he does not appear to be tremorous or anxious, I talked briefly with addiction long term care social worker, they stated since the patient snorts fentanyl with amphetamine and it, he may have a shorter withdrawal course. He indicated to addiction long term care social worker that he might be interested in an inpatient detox program. Objective Data Objective Data Vital Signs: Vital Signs Temp Pulse Resp BP Pulse Ox O2 Del Method 98.7 F 84 16 135/81 H 97 Room Air 12/14/24 09:23 12/14/24 09:23 12/14/24 09:23 12/14/24 09:23 12/14/24 09:23 12/14/24 09:23 Oxygen Delivery Method Room Air Weight: 66.497 kg Body Mass Index (BMI) 22.9 Intake & Output: Intake and Output for Last 24 Hours 12/12/24 12/13/24 12/14/24 23:59 23:59 23:59 Intake Total 350 / 350 Balance 350 / 350 Lab / Micro Data 12/13/24 17:30 12/13/24 17:30 Labs: Laboratory Results - last 24 hr 12/13/24 17:30: WBC 8.4, RBC 4.91, Hgb 15.9, Hct 44.6, MCV 90.8, MCH 32.4 H, MCHC 35.7, RDW Std Deviation 43.6, RDW Coeff of Beth 13.1, Plt Count 226, MPV 9.1, Immature Gran % (Auto) 0.100, Neut % (Auto) 68.9, Lymph % (Auto) 21.1, Wake % (Auto) 7.3, Eos % (Auto) 2.2, Baso % (Auto) 0.4, Absolute Neuts (auto) 5.8, Absolute Lymphs (auto) 1.76, Nucleated RBC % 0, Sodium 141, Potassium 4.0, Chloride 104, Carbon Dioxide 24.6, Anion Gap 13, BUN 9, Creatinine 1.03, Estim Creat Clear Calc 86.46, Est GFR (MDRD) Non-Af 92, BUN/Creatinine Ratio 9.0 L, G lucose 117 H, Calcium 9.1, Total Bilirubin 0.51, AST 26, ALT 17, Alkaline Phosphatase 61, Total Protein 6.5, Albumin 4.1, Globulin 2.4, Albumin/Globulin Ratio 1.7, Urine Opiates Screen NEGATIVE, U Buprenorphine Qual NEGATIVE, Ur Oxycodone Screen NEGATIVE, Urine Methadone Screen NEGATIVE, Urine Fentanyl Screen PRESUMPTIVE POSITIVE, Ur Barbiturates Screen NEGATIVE, Ur Phencyclidine Scrn NEGATIVE, Ur Amphetamines Screen PRESUMPTIVE POSITIVE, U Benzodiazepines Scrn NEGATIVE, Urine Cocaine Screen PRESUMPTIVE POSITIVE, U Cannabinoids Screen NEGATIVE, Ethyl Alcohol < 10.1 Physical Exam Const alert, oriented x3, no apparent distress and average body habitus General Appearance: cooperative, well kempt and well developed Orientation / Consciousness: awake, oriented to person, oriented to place and oriented to time HEENT normocephalic, head/scalp atraumatic and moist oral mucous membranes Eyes PERRL, EOMs intact bilaterally and conjunctivae normal Neck supple, no JVD, thyroid normal and no carotid bruits General: trachea midline Resp normal respiratory effort, no retractions, no use of accessory muscles and clear to auscultation bilaterally Auscultation: Negative for rales, rhonchi or wheezes Cardio regular rate, regular rhythm, S1 normal heart sound, S2 normal heart sound, no murmurs, no rub and no gallops GI normal to inspection, nondistended, normoactive bowel sounds, soft to palpation, non-tender and non-distended Extremity no clubbing, cyanosis or edema Skin no rashes or lesions noted General Skin Exam: no breakdown Neuro oriented x3, CN's II-XII intact bilaterally, moves all extremities, no focal motor deficits and no sensory deficits noted Sensorium / Orientation: awake and alert Speech: speech normal Psych affect normal Assessment & Plan Assessment/Plan (1) Desire for detoxification: PLAN: Plan 1. Acute opiate withdrawal-patient will be seen by addiction long term care social worker while in the hospital, he will remain on Subutex if needed, patient states he may want to consider doing an inpatient detox program. #2 polysubstance abuse-complicates care, management, recovery, and prognosis- patient's fentanyl probably has cocaine and methamphetamine mixed in with it. Total clinical time spent by myself addressing the patient's medical issues, reviewing all of his data, and collaborating with patient's care team: 25 minutes Charges/Coding Visit Charges Inpatient E&M: 29279 [facility] Hosp L1
--- NOTE | 2024-12-14 14:28 | CASEMGMT ---
Social Work SW gave pt resources for self pay, including [employer], [employer], [facility] Assist, Prescription assistance, Letty Springer. SW also gave resources for housing including [employer] and [employer] information. SW also gave pt information on [employer] program. Pt at this time is unhoused, has been staying in his car the last five days. Pt did apply for Medicaid with Charleen at [facility]. As per Olimpia with [facility], pt may want residential. She would need a presumptive Medicaid number. SW spoke w/Charleen, she will let SW know as soon as she gets it. SW remains available for any additional needs. ABIOLA Osorio
[2024-12-14 16:48] VITALS: BP 135/109; PULSE 67; RESP 16; TEMP 37; O2SAT 98
[2024-12-14 18:41] VITALS: BP 122/75; PULSE 93; RESP 16; TEMP 36.6; O2SAT 96
[2024-12-14 20:58] VITALS: BP 152/88; PULSE 90; RESP 15; TEMP 36.7; O2SAT 98
[2024-12-15 04:00] VITALS: BP 147/89; PULSE 83; RESP 15; TEMP 36.9; O2SAT 97; O2SAT 98
--- NOTE | 2024-12-15 07:19 | PCM.PN.HOSP ---
Reason for Visit Chief Complaint: Opiate detox Objective Data Objective Data Vital Signs: Vital Signs Temp Pulse Resp BP Pulse Ox O2 Del Method 98.5 F 83 15 147/89 H 97 Room Air 12/15/24 04:00 12/15/24 04:00 12/15/24 04:00 12/15/24 04:00 12/15/24 04:00 12/15/24 04:00 Oxygen Delivery Method Room Air Weight: 66.497 kg Body Mass Index (BMI) 22.9 Intake & Output: Intake and Output for Last 24 Hours 12/13/24 12/14/24 12/15/24 23:59 23:59 23:59 Intake Total 1350 / 1350 Balance 1350 / 1350 Lab / Micro Data 12/13/24 17:30 12/13/24 17:30 Social Homelessness:: Unsheltered
[2024-12-15] MEDS: Nicotine 2mg Gum (PBKC) 2 MG GUM PO (07:52)
[2024-12-15 10:20] VITALS: BP 148/72; PULSE 73; RESP 16; TEMP 36.6; O2SAT 100
--- NOTE | 2024-12-15 11:02 | CASEMGMT ---
Social Work SW spoke w/Charleen from [employer] earlier, pt has a case #: [id number], she will let SW know if a pending or preventative number comes through. SW spoke w/Olimpia from [facility], pt actually now will go to his sister and yfmqrth-rx-xsm's home and follow up with [facility]. SW let Hcarleen from [employer] know. No further geriatric social work professor needs anticipated. ABIOLA Osorio
--- NOTE | 2024-12-15 11:33 | PCM.DC.SUM ---
Providers Date of Admission: 12/13/24 Date of Discharge: 12/15/24 Primary Care Physician: No Primary Care Phys Reason For Visit: OPIATE DETOX Diagnosis Discharge Diagnosis (1) Desire for detoxification: Status: Acute Medications at Discharge Home Medications NK 12/13/24 Hospital Course Operations None Procedures None Summary of Care Provided Minutes Spent on Discharge: 25 Hospital Course: Mr. Omalley is a 44-year-old white male who presented to emergency department [facility] on 12/13/2024 with a chief complaint of opiate abuse requesting detox. Patient reports he also utilizes methamphetamines. His drug of choice for opiates and fentanyl which he uses intranasally. He states he typically uses 3-4 times a week and has been using for many years. He has never gone through detox previously. He indicated that he did not typically have very severe withdrawal symptoms if he does use and was seen in our ED earlier on the day of presentation for mental health issues. He was brought here by police voluntarily to speak with a counselor. Patient noted that he had several life stressors over the last week that had been difficult for him but after reviewing his situation he felt that he would benefit from being detoxed off of opiates and was encouraged to do so by family. Vital signs on presentation were unremarkable. CBC and CMP were unremarkable. UDS was positive for fentanyl, amphetamines, and cocaine. Patient reportedly last use about 2 days prior to presentation. He was admitted to the medical floor and placed on buprenorphine for detox but did not require any doses per [facility]OWS protocol. Supplemental medications were given for withdrawal symptoms as well which she did not require many. He was seen by addiction and initially felt that he wanted to do residential treatment however he did change his mind and elected to do outpatient treatment. He plans to be discharged home and stay with family. He will then follow-up as an outpatient for ongoing care with regards to addiction issues. Given the fact that he was admitted for 48 hours and required no medications discharged home was felt to be appropriate. He was discharged home in stable condition on 12/15/2024 with instructions to follow-up in the outpatient setting for ongoing drug rehab. Discharge diagnoses: Opiate abuse Polysubstance abuse Depression Tobacco abuse Physical Exam Const alert, oriented x3, no apparent distress, average body habitus, no limitations and well nourished Constitutional Narrative: Middle-aged, white male, sitting up in bed, appears much older than stated age, watching television, appears comfortable and nontoxic General Appearance: cooperative, comfortable, well kempt and well developed Exam Limitations: no limitations HEENT normocephalic and head/scalp atraumatic Resp normal respiratory effort, no retractions, no use of accessory muscles and clear to auscultation bilaterally Auscultation: Negative for rales, rhonchi or wheezes Cardio regular rate, regular rhythm, S1 normal heart sound, S2 normal heart sound, no murmurs, no rub, no gallops and no clicks GI normal to inspection, nondistended, normoactive bowel sounds, soft to palpation and non-tender Skin no jaundice, no petechiae and no mottling Skin Narrative: Multiple tattoos Neuro oriented x3, moves all extremities and no focal motor deficits Speech: speech normal Psych affect normal Psych Narrative: Very pleasant, interacts appropriately, eye contact is good Medical Records Data Homelessness:: Unsheltered Weight / BMI Weight Weight: 66.497 kg Body Mass Index (BMI) 22.9 ABG / Lab / Microbiology Data 12/13/24 17:30 12/13/24 17:30 D/C Instructions Discharge Activity: Return to Normal Activity Return to work on: 12/16/24 DC O2, CPAP, BIPAP Needs Home O2 Discharge instructions: No Meaningful Use Info Meaningful Use Meaningful Use Diagnoses (Choose all that apply): None applicable Discharge Plan Admission Admit Date/Time: 12/13/24 18:37 Primary Reason for Your Visit: Opiate detox Attending Provider: Yudi Franks Primary Care Provider: Care Physician,No Primary Consulting Providers: David Smith; David Cormier Discharge Orders/Prescriptions Prescriptions: Continued NK Referrals / Follow Up: Care Physician,No Primary [Primary Care Provider] - Disposition Disposition (needs filled in before D/C Order can be placed): Home, Self Care Charges/Coding Visit Charges Inpatient E&M: 86160 [facility] Hosp
[2024-12-15 12:45] VITALS: BP 128/72; PULSE 82; RESP 16; TEMP 36.6; O2SAT 97
== END 2024-12-15 12:44 | disposition home or self-care (01) | DRG 897 ==
LOC: ED 18:32 → MS3 18:50
PROVIDERS: Admitting Provider Hospitalist; Emergency Provider Emergency Medicine; Visit Provider Internal Medicine
DX: F11.10 Opioid abuse, uncomplicated (principal); F14.10 Cocaine abuse, uncomplicated; F32.A Depression, unspecified; F15.10 Other stimulant abuse, uncomplicated; F17.200 Nicotine dependence, unspecified, uncomplicated
CPT/HCPCS: 80053; 80307; 82077; 85025; 94668; 99283; 99406